=== PATIENT | male | born 1950 | race Caucasian/White ===

== ENCOUNTER 2022-06-10 18:31 | Emergency (ER) | payer OTHER, BC ==
--- OUTSIDE RECORDS SUMMARY | 2022-06-10 18:36 | XMS REPORT | Continuity of Care Document ---
:1950 Author Organization [facility] t Address [address] [place] [address] Care Team Providers Name Role Phone Nasir Bony Ramos Primary Care Physician Kwasi Valencia Attending Clinician Unavailable CALLUM ANSARI Attending Clinician Unavailable Lee Jimenez Attending Clinician Unavailable Zeke Garcia Attending Clinician Unavailable REX_[email or web address]_[email or web address]_ Attending Clinician Unavailable Wilma Armstrong Attending Clinician [phone] AMRITA RODRÍGUEZ Attending Clinician Unavailable Travon GREGG, Kori Lara Attending Clinician Unavailable Only, Ang Db Test Attending Clinician Unavailable Unknown, Attending Attending Clinician Unavailable UNKNOWN, ATTENDING Attending Clinician Unavailable Monty Neil DO Attending Clinician Callum Ansari MD Attending Clinician Only, Adc Test Attending Clinician Unavailable Bony Menendez CRNA Attending Clinician Zeke Small MD Attending Clinician Doctor Unassigned, [place] Attending Clinician Unavailable Pob, [facility] Main Attending Clinician Unavailable Hua MD, Mel L Attending Clinician MEL HUA Attending Clinician Unavailable Kwasi Valencia Admitting Clinician Unavailable CALLUM ANSARI Admitting Clinician Unavailable Physician, No Primary or Family Admitting Clinician Unavaila arminda Chen Admitting Clinician Unavailable SHEBA LEE Admitting Clinician Unavailable Zeke Garcia Admitting Clinician Unavailable Callum Ansari MD Admitting Clinician Payers Payer Name Policy Type Policy Number Effective Date Expiration Date S kandice MEDICARE PART A \T\ [id number] 2015 B 00:00:00 BCBS TRADITIONAL [id number] 2019 00:00:00 [place] [id number] 2015 [place] 00:00:00 [place] [id number] 2019 (PPO) 00:00:00 Problems Condition Condition Condition Status Onset Resolution Last Treating Co mments Source Name Details Category Date Date Treatment Clinician Date Total knee Total knee Disease Active U nivers replacemen replacemen 8-11 it y of t status t status 00:00: [place] 00 Medical Branch Primary Primary Disease Active [facility] osteoarthr osteoarthr 7-21 it y of itis of itis of 00:00: [place] right knee right knee 00 Me dical Branch Hypertensi Hypertens Problem Active 2019-06-03 Memoria ve phil 13:30:47 l disorder, disorder, Herm lamar systemic systemic arterial arterial (disorder) (disorder) Active Problem 06/03/2019 [facility] 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 Wilfredo n (disorder) (disorder) Active Problem 06/03/2019 [facility] Posttrauma Problem Active 2019-06-03 M emoria tic stress Posttrauma 13:30:47 l disorder tic stress Herm lamar (disorder) disorder (disorder) Active Problem 06/03/2019 [facility] Simple Simple Problem Active 2019-06-03 Kelvin antwan obesity obesity 13:30:47 l (disorder) (disorder) He joeyann Active Problem 06/03/2019 [facility] Depressive Depressiv Problem Active 2019-06-03 Memoria disorder e disorder 13:30:47 l (disorder) (disorder) He rmann Active Problem 06/03/2019 [facility] Hyperlipid Hyperlipi Problem Active 2019-06-03 Memoria emdrew demia 13:30:47 l (disorder) (disorder) He rmann Active Problem 06/03/2019 [facility] Allergies, Adverse Reactions, Alerts Allergy Allergy Status Severity Reaction(s) Onset Inactive Treating Comm ents Source Name Type Date Date Clinician No Known DA Active [facility] 12[facility]13 [place] [facility] No Known DA Active U 2020-10 [facility] Allergie 12-05 [place] [facility] No Known DA Active U 2020-10 [facility]ergie 11-04 [place] [facility] No Known DA Active [facility] Allergie 03-27 [place] 00:[facility] No Known DA Active U [facility] Allergie 03-27 [place] [facility] No Known DA Active U [facility] Allergie 11-13 [place] 00:[facility] No Known DA Active U 0 [facility] Allergie 11-13 [place] [facility] No Known DA Active U 2019-10 [facility] Allergie 12-17 [place] 00:[facility] No Known DA Active U 2019-10 [facility] Allergie 12-17 [place] 00:[facility] hydrocod DA Active [place] [facility] one 11-17 [place] 00:00: [facility] felisha FA Active SV [facility] 11-17 [place] 00:00: [facility] 00 [facility] hydrocod DA Active [place] SWEATING [facility] one 11-17 [place] 00:00: [facility] 00 [facility] felisha FA Active SV SWELLING, [facility] DIFFICULTY 11-17 [place] BREATHING 00:00: [facility] 00 dic [facility]osp[facility] l codeine codeine Active Memoria l [place] HYDROcod HYDROcod Active Memori a one one l [place] NO KNOWN Drug Active Univers ALLERGIE Class ity of S [facility] Social History Social Habit Start Date Stop Date Quantity Comments Source Exposure to Not sure [facility] SARS-CoV-2 [place] Medical (event) Branch Tobacco use and 2020-09-28 2020-09-28 Never used Universit y of exposure 00:00:00 00:00:00 [facility] Alcohol intake 2020-09-28 2020-09-28 Current drinker of Un iversity of 00:00:00 00:00:00 alcohol (finding) [facility] edical [place] Alcohol Comment 2015-05-29 2015-05-29 Occasional Drinker U niversity of 00:00:00 00:00:00 [facility] Sex Assigned At [birth year] Universit y of 00:00:00 00:00:00 [facility] Smoking Status Start Date Stop Date Source Never smoker [facility] Medications Ordered Filled Start Stop Current Ordering Indication Dosage Frequency Signature Comments Components Source Medication Medication Date Date Medication? Clinician (SIG) Name Name prazosin 2019-10 Yes 6mg Take 6 mg Univ ers (MINIPRES) 2-09 by mouth ity o f 2 mg 20:56: at [place] capsule 24 bedtime. Medical Branch traZODONE 2019-10 Yes 150mg Take 150 Uni vers (DESYREL) 2-09 mg by ity of 50 mg 20:56: mouth at [place] tablet 24 bedtime. Medical Branch venlafaxine 2019-10 Yes 150mg Take 150 U nivers XR (EFFEXOR 2-09 mg by ity of XR) 150 mg 20:56: mouth 2 [place] 24 [place] 24 (two) Medical capsule times [place] daily. prazosin 2019-10 Yes 6mg Take 6 mg Univ ers (MINIPRES) 2-09 by mouth ity o f 2 mg 20:56: at [place] capsule 24 bedtime. Medical Branch traZODONE 2019-10 Yes 150mg Take 150 Uni vers (DESYREL) 2-09 mg by ity of 50 mg 20:56: mouth at [place] tablet 24 bedtime. Medical Branch venlafaxine 2019-10 Yes 150mg Take 150 U nivers XR (EFFEXOR 2-09 mg by ity of XR) 150 mg 20:56: mouth 2 [place] 24 [place] 24 (two) Medical capsule times Branch daily. gabapentin 2019-10 Yes 300mg Take 300 Un [place] 300 mg 2-09 mg by ity of capsule 20:56: mouth 3 [place] 24 (three) Medical times Branch daily. gabapentin 2019- Yes 300mg Take 300 Un [place] 300 mg 2-09 mg by ity of capsule 20:56: mouth 3 [place] 24 (three) Medical times Branch daily. prazosin 2019-10 Yes 6mg Take 6 mg Univ ers (MINIPRES) 2-09 by mouth ity o f 2 mg 20:56: at [place] capsule 24 bedtime. Medical Branch traZODONE 2019-10 Yes 150mg Take 150 Uni vers (DESYREL) 2-09 mg by ity of 50 mg 20:56: mouth at [place] tablet 24 bedtime. Medical Branch venlafaxine 2019-10 Yes 150mg Take 150 U nivers XR (EFFEXOR 2-09 mg by ity of XR) 150 mg 20:56: mouth 2 [place] 24 [place] 24 (two) Medical capsule times Branch daily. gabapentin 2019-10 Yes 300mg Take 300 Un [place] 300 mg 2-09 mg by ity of capsule 20:56: mouth 3 [place] 24 (three) Medical times Branch daily. prazosin 2019-10 Yes 6mg Take 6 mg Univ ers (MINIPRES) 2-09 by mouth ity o f 2 mg 20:56: at [place] capsule 24 bedtime. Medical Branch traZODONE 2019-10 Yes 150mg Take 150 Uni vers (DESYREL) 2-09 mg by ity of 50 mg 20:56: mouth at [place] tablet 24 bedtime. Medical Branch venlafaxine 2019-10 Yes 150mg Take 150 U nivers XR (EFFEXOR 2-09 mg by ity of XR) 150 mg 20:56: mouth 2 [place] 24 hr 24 (two) Medical capsule times Branch daily. gabapentin 2019-10 Yes 300mg Take 300 [place] 300 mg 2-09 mg by ity of capsule 20:56: mouth 3 [place] 24 (three) Medical times Branch daily. prazosin 2019- Yes 6mg Take 6 mg Univ ers (MINIPRES) 2-09 by mouth ity o f 2 mg 20:56: at [place] capsule 24 bedtime. Medical Branch traZODONE 2019-10 Yes 150mg Take 150 Uni vers (DESYREL) 2-09 mg by ity of 50 mg 20:56: mouth at [place] tablet 24 bedtime. Medical Branch venlafaxine 2019-10 Yes 150mg Take 150 U nivers XR (EFFEXOR 2-09 mg by ity of XR) 150 mg 20:56: mouth 2 [place] 24 hr 24 (two) Medical capsule times [place] daily. gabapentin 2019-10 Yes 300mg Take 300 Un mil[place] 300 mg 2-09 mg by ity of capsule 20:56: mouth 3 [place] 24 (three) Medical times [place] daily. lactated 2019-10 Yes 1000mL at 42 [facility] ringers IV 2-09 mL/hr, ity of infusion 20:00: 1,000 mL, [place] 1,000 [place] 00 IV Medical Infusion, Branch CONTINUOUS , Starting Fri09/27/20 at 1400, Until Discontinu ed, Routine, PACU ondansetron 2019-10 Yes 4mg 4 mg, Slow Univers (ZOFRAN 2-09 IV Push, ity of (PF)) 19:54: PRN, 1 [place] injection 4 57 dose, Medical mg Starting Branch Fri09/27/20 at 1354, Until Discontinu ed, Routine, Nausea and Vomiting (N/V), PACU neomycin-po 2019-10 Yes PRN, [facility] lymyxin-dex 11-28 Starting ity of amethasone 19:37: Fri [place] (MAXITROL) 09/27/20 at [facility] ical 3.5 1337, [place] mg/g-10,000 Until unit/g-0.1 Discontinu % ed, ophthalmic Routine, ointment Intra-op gentamicin 2019-10 Yes PRN, Univers injection 11-28 Starting ity of 19:37: Fri [place] 09/27/20 at [facility] 1337, Branch Until Discontinu ed, WAN, Intra-op dexamethaso 2019-10 Yes PRN, [facility] ne 2-09 Starting ity of (DECADRON 19:37: Wed [place] PHOSPHATE) 00 09/27/20 at Med ical injection 1337, Branch Until Discontinu ed, Routine, Intra-op ceFAZolin 2019-10 Yes PRN, Univers (ANCEF) 2- Starting ity of injection 19:37: Fri [place] 09/27/20 at [facility] 1337, Branch Until Discontinu ed, WAN, Intra-op carbachoL 2019-10 Yes PRN, Univers (MIOSTAT) 2 Starting ity of 0.01 % 19:35: Wed [place] intraocular 09/27/20 at [place] d[place] injection 1335, Branch Until Discontinu ed, Routine, Intra-op sodium 2019-10 Yes PRN, Univers chloride 2-09 Starting ity of (NS) 19:34: Fri [place] injection 09/27/20 at [facility] 1334, Branch Until Discontinu ed, Routine, Intra-op EPINEPHrine 2019-10 Yes PRN, Univer s 1:1,000 (1 2- Starting ity o f mg/mL) 19:32: Fri [place] (ADRENALIN) 00 09/27/20 at [place] dical injection 1332, Branch Until Discontinu ed, Routine, Intra-op DUOVISC 2019-10 Yes PRN, Univers (DUOVISC 2 Starting ity of VISCO 19:32: Fri [place] ELASTIC) 3 00 09/27/20 at [facility] ical %-4 %(0.5 1332, Branch mL) 1 % Until (0.55 mL) Discontinu intraocular ed, injection Routine, Intra-op balanced 2019-10 Yes PRN, Univers salt irrig 2- Starting ity o f soln comb1 19:30: Fri [place] (BSS PLUS) 09/27/20 at [facility] ical ophthalmic 1330, Branch solution Until 500 mL bag Discontinu ed, Routine, Intra-op water for 2019-10 Yes PRN, Univers irrigation 2- Starting ity o f irrigation 19:21: Fri [place] solution 00 09/27/20 at Medic al 1321, Branch Until Discontinu ed, Routine, Intra-op Hyaluronida 2019-10 Yes PRN, Univer s se, Human 2- Starting ity of Recomb. 19:20: Fri [place] (HYLENEX) 09/27/20 at [facility] injection 1320, Branch Until Discontinu ed, Routine, Intra-op eye block 2019-10 Yes PRN, Univers syringe 11 2- Starting ity o f mL 19:20: [facility] [place] 09/27/20 at [facility] 1320, Branch Until Discontinu ed, Intra-op mydriatic 2019-10 2020- No .5mL 0.5 mL, Univ ers #5 11-28 Right Eye, ity of ophthalmic 16:15: 16:08 ONCE, 1 [place] as solution 00 :00 dose, [facility] Medica l 0.5 mL 09/27/20 at Branch syringe 1015, Routine, DSU Pre-op lactated 2019-10 2020- No 1000mL at 42 Unive rs ringers IV 2-09 12-09 mL/hr, ity of infusion 16:15: 16:11 1,000 mL, [place] as 1,000 mL 00 :00 IV Medical Infusion, [place] ONCE, 1 dose, 09/27/20 at 1015, Routine, DSU Pre-op prazosin 2019-10 Yes 6mg Take 6 mg Univ ers (MINIPRES) 1-19 by mouth ity o f 2 mg 17:56: at [place] capsule 10 bedtime. Medical Branch traZODONE 2019-10 Yes 150mg Take 150 Uni vers (DESYREL) 1-19 mg by ity of 50 mg 17:56: mouth at [place] tablet 10 bedtime. Medical Branch venlafaxine 2019-10 Yes 150mg Take 150 U nivers XR (EFFEXOR 1-19 mg by ity of XR) 150 mg 17:56: mouth 2 [place] 24 hr 10 (two) Medical capsule times [place] daily. prazosin 2019-10 Yes 6mg Take 6 mg Univ ers (MINIPRES) 1-19 by mouth ity o f 2 mg 17:56: at [place] capsule 10 bedtime. Medical Branch traZODONE 2019-10 Yes 150mg Take 150 Uni vers (DESYREL) 1-19 mg by ity of 50 mg 17:56: mouth at [place] tablet 10 bedtime. Medical Branch venlafaxine 2019-10 Yes 150mg Take 150 U nivers XR (EFFEXOR 1-19 mg by ity of XR) 150 mg 17:56: mouth 2 [place] 24 hr 10 (two) Medical capsule times Branch daily. prazosin 2019-10 Yes 6mg Take 6 mg Univ ers (MINIPRES) 1-18 by mouth ity o f 2 mg 18:22: at [place] capsule 10 bedtime. Medical Branch traZODONE 2019-10 Yes 150mg Take 150 Uni vers (DESYREL) 1-18 mg by ity of 50 mg 18:22: mouth at [place] tablet 10 bedtime. Medical Branch venlafaxine 2019-10 Yes 150mg Take 150 U nivers XR (EFFEXOR 1-18 mg by ity of XR) 150 mg 18:22: mouth 2 [place] 24 hr 10 (two) Medical capsule times Branch daily. propofoL IV 2019-10- No Intravenou Univers infusion 11-0618 s, ONCE ity of 17:57: 18:19 INTRA [place] 00 :25 PROCEDURE, Medical Starting Branch Fri09/06/20 at 1157, Until Fri09/06/20 at 1219, Routine, Intra-op remifentani 2019-10 2020- No Intravenou Univers L (ULTIVA) 11-06 s, ONCE ity o f injection 17:47: 18:19 INTRA [place] 00 :25 PROCEDURE, Medical Starting Branch Fri09/06/20 at 1147, Until Fri09/06/20 at 1219, Routine, Intra-op lidocaine 2019-10- No ONCE INTRA U nivers 2% 11-06 PROCEDURE, ity of (XYLOCAINE) 17:47: 18:19 Starting [place] 20 mg/mL (2 00 :25 [facility] Medical %) 09/06/20 Branch injection at 1147, Until Fri09/06/20 at 1219, Routine, Intra-op lactated 2019-10 2020- No IV Univers ringers IV 11-06 Infusion, ity of infusion 17:47: 18:19 CONTINUOUS [place] 00 :25 PRN, Medical Starting Branch Fri09/06/20 at 1147, Until Fri09/06/20 at 1219, Routine, Intra-op water for 2019-10 Yes PRN, Univers irrigation 11-06 Starting ity o f irrigation 17:42: Wed [place] solution 09/06/20 Medical at 1142, Branch Until Discontinu ed, Routine, Intra-op sodium 2019-10 Yes PRN, Univers chloride 11-06 Starting ity of (NS) 17:42: Wed [place] injection 09/06/20 Medica l at 1142, Branch Until Discontinu ed, Routine, Intra-op neomycin-po 2019-10 Yes PRN, Univberta s lymyxin-dex 18 Starting ity of amethasone 17:42: Wed [place] (MAXITROL) 09/06/20 Medic al 3.5 at 1142, Branch mg/g-10,000 Until unit/g-0.1 Discontinu % ed, ophthalmic Routine, ointment Intra-op Hyaluronida 2019-10 Yes PRN, Univberta s se, Human 1-18 Starting ity of Recomb. 17:41: Fri [place] (HYLENEX) 09/06/20 Medica l injection at 1141, Branch Until Discontinu ed, Routine, Intra-op eye block 2019-10 Yes PRN, Univers syringe 11 11-06 Starting ity o f mL 17:41: Fri [place] 09/06/20 Medical at 1141, Branch Until Discontinu ed, Intra-op EPINEPHrine 2019-10 Yes PRN, Univer s 1:1,000 (1 11-06 Starting ity o f mg/mL) 17:41: Fri [place] (ADRENALIN) 09/06/20 Medi miryam injection at 1141, Branch Until Discontinu ed, Routine, Intra-op DUOVISC 2019-10 Yes PRN, Univers (DUOVISC 11-06 Starting ity of VISCO 17:41: Fri [place] ELASTIC) 3 09/06/20 Medic al %-4 %(0.5 at 1141, Branch mL) 1 % Until (0.55 mL) Discontinu intraocular ed, injection Routine, Intra-op dexamethaso 2019-10 Yes PRN, Univer s ne 11-06 Starting ity of (DECADRON 17:41: Fri [place] PHOSPHATE) 09/06/20 Medic al injection at 1141, Branch Until Discontinu ed, Routine, Intra-op ceFAZolin 2019-10 Yes PRN, Univers (ANCEF) 11-06 Starting ity of injection 17:41: Fri [place] 09/06/20 Medical at 1141, Branch Until Discontinu ed, WAN, Intra-op carbachoL 2019-10 Yes PRN, Univers (MIOSTAT) 11-06 Starting ity of 0.01 % 17:41: Fri [place] intraocular 00 09/06/20 Medi miryam injection at 1141, Branch Until Discontinu ed, Routine, Intra-op balanced 2019-10 Yes PRN, Univers salt irrig 11-06 Starting ity o f soln comb1 17:40: Fri [place] (BSS PLUS) 09/06/20 Medic al ophthalmic at 1140, Bran h solution Until 500 mL bag Discontinu ed, Routine, Intra-op mydriatic 2019-10 2020- No .5mL 0.5 mL, Univ ers #5 11-06 Left Eye, ity of ophthalmic 16:30: 16:31 ONCE, 1 [place] solution 00 :00 dose, Fri Medica l 0.5 mL 09/06/20 Branch syringe at 1030, Routine lactated 2020-1 2020- No 1000mL at 42 Unive rs ringers IV 1-18 11-18 mL/hr, ity of infusion 16:30: 16:38 1,000 mL, [place] as 1,000 mL 00 :00 IV Medical Infusion, Branch ONCE, 1 dose, 09/06/20 at 1030, Routine, DSU Pre-op venlafaxine 2014-0 Yes 150mg Take 150 U nivers XR (EFFEXOR 8-14 mg by ity of XR) 150 mg 01:50: mouth 2 [place] 24 hr 54 (two) Medical capsule times Branch daily. prazosin 2014-0 Yes 6mg Take 6 mg Univ ers (MINIPRES) 8-14 by mouth ity o f 2 mg 01:50: at [place] capsule 54 bedtime. Medical Branch traZODONE 0 Yes 150mg Take 150 Uni vers (DESYREL) 8-14 mg by ity of 50 mg 01:50: mouth at [place] tablet 54 bedtime. Medical Branch venlafaxine 0 Yes 150mg Take 150 U nivers XR (EFFEXOR 8-14 mg by ity of XR) 150 mg 01:50: mouth 2 [place] 24 hr 54 (two) Medical capsule times Branch daily. prazosin 0 Yes 6mg Take 6 mg Univ ers (MINIPRES) 8-14 by mouth ity o f 2 mg 01:50: at [place] capsule 54 bedtime. Medical Branch traZODONE 0 Yes 150mg Take 150 Uni vers (DESYREL) 8-14 mg by ity of 50 mg 01:50: mouth at [place] tablet 54 bedtime. Medical Branch venlafaxine 0 Yes 150mg Take 150 U nivers XR (EFFEXOR 8-14 mg by ity of XR) 150 mg 01:50: mouth 2 [place] 24 hr 54 (two) Medical capsule times Branch daily. prazosin 2014-0 Yes 6mg Take 6 mg Univ ers (MINIPRES) 8-14 by mouth ity o f 2 mg 01:50: at [place] capsule 54 bedtime. Medical Branch traZODONE 2014-0 Yes 150mg Take 150 Uni vers (DESYREL) 8-14 mg by ity of 50 mg 01:50: mouth at [place] tablet 54 bedtime. Medical Branch venlafaxine Yes 150mg Take 150 U nivers XR (EFFEXOR 8-14 mg by ity of XR) 150 mg 01:50: mouth 2 [place] 24 hr 54 (two) Medical capsule times Branch daily. prazosin 0 Yes 6mg Take 6 mg Univ ers (MINIPRES) 8-14 by mouth ity o f 2 mg 01:50: at [place] capsule 54 bedtime. Medical Branch traZODONE Yes 150mg Take 150 Uni vers (DESYREL) 8-14 mg by ity of 50 mg 01:50: mouth at [place] tablet 54 bedtime. Medical Branch venlafaxine Yes 150mg Take 150 U nivers XR (EFFEXOR 8-14 mg by ity of XR) 150 mg 01:50: mouth 2 [place] 24 hr 54 (two) Medical capsule times Branch daily. prazosin Yes 6mg Take 6 mg Univ ers (MINIPRES) 8-14 by mouth ity o f 2 mg 01:50: at [place] capsule 54 bedtime. Medical Branch traZODONE Yes 150mg Take 150 Uni vers (DESYREL) 8-14 mg by ity of 50 mg 01:50: mouth at [place] tablet 54 bedtime. Medical Branch venlafaxine Yes 150mg Take 150 U nivers XR (EFFEXOR 8-14 mg by ity of XR) 150 mg 01:50: mouth 2 [place] 24 hr 54 (two) Medical capsule times Branch daily. prazosin 0 Yes 6mg Take 6 mg Univ ers (MINIPRES) 8-14 by mouth ity o f 2 mg 01:50: at [place] capsule 54 bedtime. Medical Branch traZODONE Yes 150mg Take 150 Uni vers (DESYREL) 8-14 mg by ity of 50 mg 01:50: mouth at [place] tablet 54 bedtime. Medical Branch venlafaxine 0 Yes 150mg Take 150 U nivers XR (EFFEXOR 8-14 mg by ity of XR) 150 mg 01:50: mouth 2 [place] 24 hr 54 (two) Medical capsule times Branch daily. prazosin 0 Yes 6mg Take 6 mg Univ ers (MINIPRES) 8-14 by mouth ity o f 2 mg 01:50: at [place] capsule 54 bedtime. Medical Branch traZODONE Yes 150mg Take 150 Uni vers (DESYREL) 8-14 mg by ity of 50 mg 01:50: mouth at [place] tablet 54 bedtime. Medical Branch venlafaxine Yes 150mg Take 150 U nivers XR (EFFEXOR 8-14 mg by ity of XR) 150 mg 01:50: mouth 2 [place] 24 hr 54 (two) Medical capsule times Branch daily. prazosin Yes 6mg Take 6 mg Univ ers (MINIPRES) 8-14 by mouth ity o f 2 mg 01:50: at [place] capsule 54 bedtime. Medical Branch traZODONE Yes 150mg Take 150 Uni vers (DESYREL) 8-14 mg by ity of 50 mg 01:50: mouth at [place] tablet 54 bedtime. Medical Branch venlafaxine Yes 150mg Take 150 U nivers XR (EFFEXOR 8-14 mg by ity of XR) 150 mg 01:50: mouth 2 [place] 24 hr 54 (two) Medical capsule times Branch daily. prazosin Yes 6mg Take 6 mg Univ ers (MINIPRES) 8-14 by mouth ity o f 2 mg 01:50: at [place] capsule 54 bedtime. Medical Branch traZODONE Yes 150mg Take 150 Uni vers (DESYREL) 8-14 mg by ity of 50 mg 01:50: mouth at [place] tablet 54 bedtime. Medical Branch venlafaxine Yes 150mg Take 150 U nivers XR (EFFEXOR 8-14 mg by ity of XR) 150 mg 01:50: mouth 2 [place] 24 hr 54 (two) Medical capsule times Branch daily. prazosin Yes 6mg Take 6 mg Univ ers (MINIPRES) 8-14 by mouth ity o f 2 mg 01:50: at [place] capsule 54 bedtime. Medical Branch traZODONE Yes 150mg Take 150 Uni vers (DESYREL) 8-14 mg by ity of 50 mg 01:50: mouth at [place] tablet 54 bedtime. Medical Branch venlafaxine Yes 150mg Take 150 U nivers XR (EFFEXOR 8-14 mg by ity of XR) 150 mg 01:50: mouth 2 [place] 24 hr 54 (two) Medical capsule times Branch daily. prazosin 2014-0 Yes 6mg Take 6 mg Univ ers (MINIPRES) 8-14 by mouth ity o f 2 mg 01:50: at [place] capsule 54 bedtime. Medical Branch traZODONE 2014-0 Yes 150mg Take 150 Uni vers (DESYREL) 8-14 mg by ity of 50 mg 01:50: mouth at [place] tablet 54 bedtime. Medical Branch celecoxib 2014-0 Yes 200mg Take 1 Cap U nivers (CELEBREX) 8-13 by mouth 2 ity of 200 mg 00:00: (two) [place] capsule 00 times Medical daily with Branch meals. HYDROmorphO 2015-0 Yes 2mg Take 1 Tab Univers ne 8-13 by mouth ity of (DILAUDID) 00:00: every 4 [place] 2 mg tablet 00 (four) Medica l hours as Branch needed for Pain (scale 4-6). busPIRone 2015-0 Yes 5mg Take 1 Tab Un mil[place] (BUSPAR) 5 8-13 by mouth ity o f mg tablet 00:00: at bedtime [place] 00 as needed Medical (anxiety). Branch celecoxib 2014-0 Yes 200mg Take 1 Cap U nivers (CELEBREX) 8-13 by mouth 2 ity of 200 mg 00:00: (two) [place] capsule 00 times Medical daily with Branch meals. HYDROmorphO 2015-0 Yes 2mg Take 1 Tab Univers ne 8-13 by mouth ity of (DILAUDID) 00:00: every 4 [place] 2 mg tablet 00 (four) Medica l hours as Branch needed for Pain (scale 4-6). busPIRone 2015-0 Yes 5mg Take 1 Tab Un mil[place] (BUSPAR) 5 8-13 by mouth ity o f mg tablet 00:00: at bedtime [place] 00 as needed Medical (anxiety). Branch celecoxib 2015-0 Yes 200mg Take 1 Cap U nivers (CELEBREX) 8-13 by mouth 2 ity of 200 mg 00:00: (two) [place] capsule 00 times Medical daily with Branch meals. HYDROmorphO 2015-0 Yes 2mg Take 1 Tab Univers ne 8-13 by mouth ity of (DILAUDID) 00:00: every 4 [place] 2 mg tablet 00 (four) Medica l hours as Branch needed for Pain (scale 4-6). busPIRone 2015-0 Yes 5mg Take 1 Tab Un [place] (BUSPAR) 5 8-13 by mouth ity o f mg tablet 00:00: at bedtime [place] 00 as needed Medical (anxiety). Branch celecoxib 2015-0 Yes 200mg Take 1 Cap U nivers (CELEBREX) 8-13 by mouth 2 ity of 200 mg 00:00: (two) [place] capsule 00 times Medical daily with Branch meals. HYDROmorphO 2015-0 Yes 2mg Take 1 Tab Univers ne 8-13 by mouth ity of (DILAUDID) 00:00: every 4 [place] 2 mg tablet 00 (four) Medica l hours as Branch needed for Pain (scale 4-6). busPIRone 2015-0 Yes 5mg Take 1 Tab Un milind (BUSPAR) 5 8-13 by mouth ity o f mg tablet 00:00: at bedtime [place] 00 as needed Medical (anxiety). Branch celecoxib 2015-0 Yes 200mg Take 1 Cap U nivers (CELEBREX) 8-13 by mouth 2 ity of 200 mg 00:00: (two) [place] capsule 00 times Medical daily with Branch meals. HYDROmorphO 2015-0 Yes 2mg Take 1 Tab Univers ne 8-13 by mouth ity of (DILAUDID) 00:00: every 4 [place] 2 mg tablet 00 (four) Medica l hours as Branch needed for Pain (scale 4-6). busPIRone 2015-0 Yes 5mg Take 1 Tab Un mil[place] (BUSPAR) 5 8-13 by mouth ity o f mg tablet 00:00: at bedtime [place] 00 as needed Medical (anxiety). Branch celecoxib 2015-0 Yes 200mg Take 1 Cap U nivers (CELEBREX) 8-13 by mouth 2 ity of 200 mg 00:00: (two) [place] capsule 00 times Medical daily with Branch meals. HYDROmorphO 2015-0 Yes 2mg Take 1 Tab Univers ne 8-13 by mouth ity of (DILAUDID) 00:00: every 4 [place] 2 mg tablet 00 (four) Medica l hours as Branch needed for Pain (scale 4-6). busPIRone 2015-0 Yes 5mg Take 1 Tab Un milind (BUSPAR) 5 8-13 by mouth ity o f mg tablet 00:00: at bedtime [place] 00 as needed Medical (anxiety). Branch celecoxib 2015-0 Yes 200mg Take 1 Cap U nivers (CELEBREX) 8-13 by mouth 2 ity of 200 mg 00:00: (two) [place] capsule 00 times Medical daily with Branch meals. HYDROmorphO 2015-0 Yes 2mg Take 1 Tab Univers ne 8-13 by mouth ity of (DILAUDID) 00:00: [place] 4 [place] 2 mg tablet 00 (four) Medica l hours as Branch needed for Pain (scale 4-6). celecoxib 2015-0 Yes 200mg Take 1 Cap U nivers (CELEBREX) 8-13 by mouth 2 ity of 200 mg 00:00: (two) [place] capsule 00 times Medical daily with Branch meals. busPIRone 2015-0 Yes 5mg Take 1 Tab Un milind (BUSPAR) 5 8-13 by mouth ity o f mg tablet 00:00: [place]time [place] 00 as needed Medical (anxiety). Branch HYDROmorphO 2015-0 Yes 2mg Take 1 Tab Univers ne 8-13 by mouth ity of (DILAUDID) 00:00: [place] 4 [place] 2 mg tablet 00 (four) Medica l hours as Branch needed for Pain (scale 4-6). busPIRone 2015-0 Yes 5mg Take 1 Tab Un milind (BUSPAR) 5 8-13 by mouth ity o f mg tablet 00:00: [place]time [place] 00 as needed Medical (anxiety). Branch celecoxib 2015-0 Yes 200mg Take 1 Cap U nivers (CELEBREX) 8-13 by mouth 2 ity of 200 mg 00:00: (two) [place] capsule 00 times Medical daily with Branch meals. HYDROmorphO 2015-0 Yes 2mg Take 1 Tab Univers ne 8-13 by mouth ity of (DILAUDID) 00:00: every 4 [place] 2 mg tablet 00 (four) Medica l hours as Branch needed for Pain (scale 4-6). busPIRone 2015-0 Yes 5mg Take 1 Tab Un milind (BUSPAR) 5 8-13 by mouth ity o f mg tablet 00:00: [place]time [place] 00 as needed Medical (anxiety). Branch celecoxib 2015-0 Yes 200mg Take 1 Cap U nivers (CELEBREX) 8-13 by mouth 2 ity of 200 mg 00:00: (two) [place] capsule 00 times Medical daily with Branch meals. HYDROmorphO 2015-0 Yes 2mg Take 1 Tab Univers ne 8-13 by mouth ity of (DILAUDID) 00:00: every 4 [place] 2 mg tablet 00 (four) Medica l hours as Branch needed for Pain (scale 4-6). busPIRone 2015-0 Yes 5mg Take 1 Tab Un milind (BUSPAR) 5 8-13 by mouth ity o f mg tablet 00:00: [place]time [place] 00 [place] needed Medical (anxiety). Branch celecoxib 2015-0 Yes 200mg Take 1 Cap U nivers (CELEBREX) 8-13 by mouth 2 ity of 200 mg 00:00: (two) [place] capsule 00 times Medical daily with Branch meals. HYDROmorphO 2015-0 Yes 2mg Take 1 Tab Univers ne 8-13 by mouth ity of (DILAUDID) 00:00: every 4 [place] 2 mg tablet 00 (four) Medica l hours as Branch needed for Pain (scale 4-6). busPIRone 2015-0 Yes 5mg Take 1 Tab Un milind (BUSPAR) 5 8-13 by mouth ity o f mg tablet 00:00: [place]time [place] 00 as needed Medical (anxiety). Branch celecoxib 2015-0 Yes 200mg Take 1 Cap U nivers (CELEBREX) 8-13 by mouth 2 ity of 200 mg 00:00: (two) [place] capsule 00 times Medical daily with Branch meals. HYDROmorphO 2015-0 Yes 2mg Take 1 Tab Univers ne 8-13 by mouth ity of (DILAUDID) 00:00: every 4 [place] 2 mg tablet 00 (four) Medica l hours as Branch needed for Pain (scale 4-6). busPIRone 2015-0 Yes 5mg Take 1 Tab Un milind (BUSPAR) 5 8-13 by mouth ity o f mg tablet 00:00: [place]time [place] 00 as needed Medical (anxiety). Branch celecoxib 2015-0 Yes 200mg Take 1 Cap U nivers (CELEBREX) 8-13 by mouth 2 ity of 200 mg 00:00: (two) [place] capsule 00 times Medical daily with Branch meals. HYDROmorphO 2015-0 Yes 2mg Take 1 Tab Univers ne 8-13 by mouth ity of (DILAUDID) 00:00: every 4 [place] 2 mg tablet 00 (four) Medica l hours as Branch needed for Pain (scale 4-6). busPIRone 2015-0 Yes 5mg Take 1 Tab Un milind (BUSPAR) 5 8-13 by mouth ity o f mg tablet 00:00: [place]time [place] 00 [place] needed Medical (anxiety). Branch celecoxib 2015-0 Yes 200mg Take 1 Cap U nivers (CELEBREX) 8-13 by mouth 2 ity of 200 mg 00:00: (two) [place] capsule 00 times Medical daily with Branch meals. HYDROmorphO 2015-0 Yes 2mg Take 1 Tab Univers ne 8-13 by mouth ity of (DILAUDID) 00:00: every 4 [place] 2 mg tablet 00 (four) Medica l hours as Branch needed for Pain (scale 4-6). busPIRone 2015-0 Yes 5mg Take 1 Tab Un milind (BUSPAR) 5 8-13 by mouth ity o f mg tablet 00:00: [place]time [place] 00 as needed Medical (anxiety). Branch celecoxib 2015-0 Yes 200mg Take 1 Cap U nivers (CELEBREX) 8-13 by mouth 2 ity of 200 mg 00:00: (two) [place] capsule 00 times Medical daily with Branch meals. HYDROmorphO 2015-0 Yes 2mg Take 1 Tab Univers ne 8-13 by mouth ity of (DILAUDID) 00:00: every 4 [place] 2 mg tablet 00 (four) Medica l hours as Branch needed for Pain (scale 4-6). busPIRone 2015-0 Yes 5mg Take 1 Tab Un milind (BUSPAR) 5 8-13 by mouth ity o f mg tablet 00:00: [place]time [place] 00 as needed Medical (anxiety). Branch celecoxib 2015-0 Yes 200mg Take 1 Cap U nivers (CELEBREX) 8-13 by mouth 2 ity of 200 mg 00:00: (two) [place] capsule 00 times Medical daily with Branch meals. HYDROmorphO 2015-0 Yes 2mg Take 1 Tab Univers ne 8-13 by mouth ity of (DILAUDID) 00:00: every 4 [place] 2 mg tablet 00 (four) Medica l hours as Branch needed for Pain (scale 4-6). busPIRone 2015-0 Yes 5mg Take 1 Tab Un milind (BUSPAR) 5 8-13 by mouth ity o f mg tablet 00:00: [place]time [place] 00 as needed Medical (anxiety). Branch celecoxib 2015-0 Yes 200mg Take 1 Cap U nivers (CELEBREX) 8-13 by mouth 2 ity of 200 mg 00:00: (two) [place] capsule 00 times Medical daily with Branch meals. HYDROmorphO 2015-0 Yes 2mg Take 1 Tab Univers ne 8-13 by mouth ity of (DILAUDID) 00:00: every 4 [place] 2 mg tablet 00 (four) Medica l hours as Branch needed for Pain (scale 4-6). busPIRone 2015-0 Yes 5mg Take 1 Tab Un milind (BUSPAR) 5 8-13 by mouth ity o f mg tablet 00:00: [place]time [place] 00 as needed Medical (anxiety). Branch celecoxib 2015-0 Yes 200mg Take 1 Cap U nivers (CELEBREX) 8-13 by mouth 2 ity of 200 mg 00:00: (two) [place] capsule 00 times Medical daily with Branch meals. HYDROmorphO 2015-0 Yes 2mg Take 1 Tab Univers ne 8-13 by mouth ity of (DILAUDID) 00:00: every 4 [place] 2 mg tablet 00 (four) Medica l hours as Branch needed for Pain (scale 4-6). busPIRone 2015-0 Yes 5mg Take 1 Tab Un milind (BUSPAR) 5 8-13 by mouth ity o f mg tablet 00:00: at [place]time [place] 00 as needed Medical (anxiety). Branch celecoxib 2015-0 Yes 200mg Take 1 Cap U nivers (CELEBREX) 8-13 by mouth 2 ity of 200 mg 00:00: (two) [place] capsule 00 times Medical daily with Branch meals. HYDROmorphO 2015-0 Yes 2mg Take 1 Tab Univers ne 8-13 by mouth ity of (DILAUDID) 00:00: every 4 [place] 2 mg tablet 00 (four) Medica l hours as Branch needed for Pain (scale 4-6). busPIRone 2015-0 Yes 5mg Take 1 Tab Un milind (BUSPAR) 5 8-13 by mouth ity o f mg tablet 00:00: [place]time [place] 00 as needed Medical (anxiety). Branch Vital Signs Vital Name Observation Time Observation Value Comments Source Systolic blood 2020-09-27 19:58:00 140 mm[Hg] Univer sity of [facility] Diastolic blood 2020-09-27 19:58:00 76 mm[Hg] Unive rsity of [facility] Heart rate 2020-09-27 19:58:00 61 /min Universi ty [facility] Respiratory rate 2020-09-27 19:58:00 18 /min [facility] in 2020-09-27 19:58:00 94 /min University of Arterial blood by [facility] Pulse oximetry Branch Body temperature 2020-09-27 19:43:00 36.56 [facility] Body height 2020-09-25 20:00:00 177.8 cm Universi ty [facility] Body weight 2020-09-25 20:00:00 88.451 kg [facility] ty [facility] BMI 2020-09-25 20:00:00 27.98 kg/m2 [facility] Systolic blood 2020-09-27 19:58:00 140 mm[Hg] Univer sity of [facility] Diastolic blood 2020-09-27 19:58:00 76 mm[Hg] Unive rsity of [facility] Heart rate 2020-09-27 19:58:00 61 /min Universi ty [facility] Respiratory rate 2020-09-27 19:58:00 18 /min Univ ersity [facility] Oxygen saturation in 2020-09-27 19:58:00 94 /min University of Arterial blood by [facility] Pulse oximetry Branch Body temperature 2020-09-27 19:43:00 36.56 Roxana [facility] height 2020-09-25 20:00:00 177.8 cm Universi ty [facility] Body weight 2020-09-25 20:00:00 88.451 kg [facility]i ty [facility] [place] [facility] BMI 2020-09-25 20:00:00 27.98 kg/m2 [facility] [place] [facility] Systolic blood 2020-09-06 18:32:00 138 mm[Hg] Univer sity of [facility] [place] [facility] Diastolic blood 2020-09-06 18:32:00 77 mm[Hg] Unive rsity of [facility] [place] [facility] Heart rate 2020-09-06 18:32:00 71 /min Universi ty [facility] [place] [facility] Respiratory rate 2020-09-06 18:32:00 18 /min Univ ersity [facility] [place] [facility] Oxygen saturation in 2020-09-06 18:32:00 98 /min University of Arterial blood by [place] [employer] miryam Pulse oximetry Branch Body temperature 2020-09-06 18:22:00 36.89 Roxana Univ ersity [facility] [place] [facility] Body height 2020-09-04 15:30:00 177.8 cm [facility]i ty [facility] [place] [facility] Body weight 2020-09-04 15:30:00 88.451 kg [facility] [place] [facility] BMI 2020-09-04 15:30:00 27.98 kg/m2 [facility] [place] [facility] Systolic blood 2020-09-06 18:32:00 138 mm[Hg] Univer sity of [facility] [place] [facility] Diastolic blood 2020-09-06 18:32:00 77 mm[Hg] Unive rsity of [facility] [place] [facility] Heart rate 2020-09-06 18:32:00 71 /min Universi ty [facility] [place] [facility] Respiratory rate 2020-09-06 18:32:00 18 /min Univ ersity [facility] [place] [facility] Oxygen saturation in 2020-09-06 18:32:00 98 /min University of Arterial blood by [facility] miryam Pulse oximetry Branch Body temperature 2020-09-06 18:22:00 36.89 Roxana Univ ersity [facility] [place] [facility] Body height 2020-09-04 15:30:00 177.8 cm [facility]i ty [facility] [place] [facility] Body weight 2020-09-04 15:30:00 88.451 kg [facility] [place] [facility] BMI 2020-09-04 15:30:00 27.98 kg/m2 [facility] [place] [facility] Respiratory rate 2020-09-06 18:16:00 17 /min Univ ersity [facility] [place] [facility] Respiratory rate 2020-09-06 18:16:00 17 /min Univ ersity of [facility] Branch Systolic blood 2020-07-20 18:35:00 127 mm[Hg] Univer sity of [facility] [place] [facility] Diastolic blood 2020-07-20 18:35:00 75 mm[Hg] Unive rsity of [facility] [place] [facility] Heart rate 2020-07-20 18:32:00 79 /min Universi ty [facility] [place] [facility] Systolic blood 2020-07-20 18:35:00 127 mm[Hg] Univer sity of [facility] [place] [facility] Diastolic blood 2020-07-20 18:35:00 75 mm[Hg] Unive rsity of pressure [facility] Branch Heart rate 2020-07-20 18:32:00 79 /min [facility] Branch BMI Calculated 2019-04-09 21:07:00 Jackie Vasques Weight 2019-04-09 [facility]:07[facility]00 [facility] Height 2019-04-09 21:07:00 175.26 cm [facility] [place] Respitory Rate 2019-04-09 21:07:00 Jackie Vasques Heart Rate 2019-04-09 21:07:00 [facility] Systolic (mm Hg) 2019-04-09 21:07:00 Kelvin Taylor Diastolic (mm Hg) 2019-04-09 21:07:00 [facility] mike Taylor Procedures Procedure Date / Time Performing Source Performed Clinician CONSENT/REFUSAL FOR DIAGNOSIS 2020-09-25 Doctor Unassigned, [facility] 17:48:31 [facility] ASSIGNMENT OF BENEFITS 2020-09-25 Doctor Unassigned, [facility] 17:48:13 [facility] PHACOEMULSIFICATION OF 2020-09-06 Callum Ansari [facility] CATARACT WITH INTRAOCULAR 17:43:00 Medica l Branch LENS IMPLANT ASSIGNMENT OF BENEFITS 2020-09-05 Doctor Unassigned, [facility] 17:09:22 [facility] CONSENT/REFUSAL FOR DIAGNOSIS 2020-08-28 Doctor Unassigned, [facility] 22:16:21 [facility] ASSIGNMENT OF BENEFITS 2020-08-28 Doctor Unassigned, [facility] 22:16:06 [facility] NOTICE OF PRIVACY PRACTICES 2020-08-28 Doctor Unassigned, [facility] 22:15:53 [facility] CONSENT/REFUSAL FOR DIAGNOSIS 2020-08-28 Doctor Unassigned, [facility] 22:15:40 [facility] ASSIGNMENT OF BENEFITS 2020-08-28 Doctor Unassigned, [facility] 22:15:23 [facility] PHYSICIAN ORDERS 2020-08-28 Doctor Unassigned, [facility] 06:01:00 [facility] EXTERNAL PROVIDER RECORDS 2020-07-24 Doctor Unassigned, [facility] 05:01:00 [facility] ASSIGNMENT OF BENEFITS 2020-07-20 Doctor Unassigned, [facility] 18:24:15 [facility] REFERRAL- REQUEST/RESPONSE 2020-07-17 Doctor Unassigned, [facility] 05:01:00 [facility] Encounters Start End Encounter Admission Attending Care Care Encounter Source Date/Time Date/Time Type Type Clinicians Facility Department ID 2021-12-13 Outpatient Erik, MANUELTO MANUELTO [id number] [facility] 10:06:02 Kwasi 05 [facility] 2021-10-04 Outpatient Erik, MANUELTO MANUELTO [id number] [facility] 14:48:20 Kwasi 11 [facility] 2021-08-18 Outpatient Elder ANSARI DCJANNA JAMILA [id number] Univers 09:02:11 [facility] 2021-08-18 Outpatient Elder ANSARI [facility] OPU [id number] Univers 06:19:26 CALLUM [facility] 2020-11-13 Inpatient JUAN LUIS Gonzales PAIN [id number] [facility] 10:30:00 Lee [id number] [facility] 2020-10-16 Inpatient JUAN LUIS Dennison RADI [id number] [facility] 14:30:00 Zeke [id number] [facility] 2022-06-04 2022-06-04 Outpatient REX_Yohana AOSM AOSM [id number] [place] 00:00:00 00:00:00 Lashaun [id number] [facility] 2022-06-04 2022-06-04 Outpatient Wilma Armstrong AOLUIS AOSM [id number] 00:00:00 00:00:00 Elder [id number] 2022-06-03 2022-06-03 Outpatient FOG_Wimberl AOSM AOSM [id number] [place] 00:00:00 00:00:00 holland_Da_ [id number] [facility] 2022-05-31 2022-05-31 Outpatient FOG_Wimberl AOSM AOSM [id number] [place] 00:00:00 00:00:00 ey_Da_ [id number] [facility] 2022-03-29 2022-03-29 Outpatient [facility] [id number] [place] 00:00:00 00:00:00 AMRITA 976 Method i 2022-03-26 2022-03-26 Outpatient FOG_Wimberl AOSM AOSM [id number] [place] 00:00:00 00:00:00 holland_Shilpa [id number] [facility] 2022-03-15 2022-03-15 Outpatient [facility] [id number] [place] 00:00:00 00:00:00 AMRITA 669 Method i 2021-12-13 2021-12-13 Outpatient FLORENCIA Erik, HCATO PAIN [id number] [facility] 07:09:00 07:09:00 Kwasi [id number] [facility] 2021-11-23 2021-11-23 Outpatient [facility] [id number] [place] 00:00:00 00:00:00 AMRITA 653 Method i 2021-11-08 2021-11-08 Outpatient [facility] [id number] [place] 00:00:00 00:00:00 AMRITA [address] 2021-10-04 2021-10-04 Outpatient EL Erik, HCATO PAIN [id number] [facility] 10:54:00 10:54:00 Kwasi [id number] [facility] 2021-09-04 2021-09-04 Outpatient EL Radha HCATO RADI [id number] [facility] 10:23:00 10:23:00 Zeke [id number] [facility] 2021-09-04 2021-09-04 Outpatient JUAN LUIS eDnnison RADI [id number] [facility] 07:45:00 07:45:00 Zeke Vargas [facility] 2021-06-30 2021-06-30 Telephone JAIME Cool [id number] Univers 00:00:00 00:00:00 Kori MUNOZ 350.1.13.10 i ty of HOSPITAL 4.2.7.2.686 Mitesh as [id number] [facility] [address] [place] 2021-06-28 2021-06-28 Laboratory Only, Ang Db Test [facility] 1.2.8 40.114 [id number] Univers 16:25:51 16:35:51 Only Unknown, Attending [facility] 350.1.13.10 ity of [place] 4.2.7.2.686 Mitesh as Bert?Blea [phone] [address] Medical Office Building 2021-06-28 2021-06-28 Outpatient R [facility] [id number] Univers 16:20:00 16:20:00 [id number] ity [facility] 2021-06-28 2021-06-28 Outpatient R UNKNOWN, [facility] [id number] Univers 16:20:00 16:20:00 ATTENDING ity [facility] 2021-03-27 2021-03-27 Outpatient MANUEL MorelosTO PAIN [id number] [facility] 07:55:00 07:55:00 Kwasi [id number] [facility] 2020-12-25 2020-12-25 Patient Rashaad [facility] 1.2.840.114 [id number] Univers 00:00:00 00:00:00 Outreach Monty PRIMARY [id number] i ty of [facility] 4.2.7.2.[place] [id number] N[place] dical [address] [place] [address] 2020-12-25 2020-12-25 Patient Rashaad [facility] 1.2.840.114 [id number] 00:00:00 00:00:00 Outreach Monty PRIMARY [id number] Carlos CARE 4.2.7.2.686 PAVILLION [id number] 388 2020-11-07 2020-11-07 Outpatient JUAN LUIS Jimenez PAIN [id number] [facility] 10:00:00 10:00:00 Lee [id number] [facility] 2020-09-28 2020-09-28 Outpatient JUAN LUIS Garcia RADI [id number] [facility] 14:30:00 14:30:00 Zeke [facility] 2020-09-27 2020-09-27 [facility] [id number] Univers 09:56:00 14:40:00 Encounter Callum Arthur 350.1.13.10 ity of [place] 4.2.7.2.686 [facility] Surgical [id number] Med ica[address] 2020-09-27 2020-09-27 [facility] [id number] 09:56:00 14:40:00 Encounter Callum Arthur 350.1.13.10 [place] 4.2.7.2.686 Surgical [id number] [place] [address] 2020-09-25 2020-09-25 Laboratory Only, [facility] Test [facility] 1.2.840. 114 [id number] Univers 11:47:11 12:02:11 Only StarrCallum 350.1.13.1 0 ity of [place] 4.2.7.2.686 [facility] [place] [id number] [address] 2020-09-25 2020-09-25 Laboratory Only, [facility] 1.2.840.114 [id number] 11:47:11 12:02:11 Only Test [place] 350.1.13.10 [place] 4.2.7.2.686 [place] [id number] [facility] 2020-09-25 2020-09-25 Outpatient R [facility] [id number] Univers 11:45:00 11:45:00 [facility] 2020-09-25 2020-09-25 Outpatient R [facility] [id number] Univers 11:45:00 11:45:00 CALLUM [facility] 2020-09-06 2020-09-06 [facility] [id number] Univers 10:06:00 12:57:00 Encounter Callum Bocanegra Sandhya 350.1.13.10 it[place]2.[place] [id number] [facility] [address] [place] 2020-09-06 2020-09-06 Hospital Starr [facility] [id number] 10:06:00 12:57:00 Encounter Callum Sahra Sandhya 350.1.13.10 [place] 4.2.7.2.686 Surgical [id number] [place] [address] 2020-09-06 2020-09-06 Anesthesia Bony Menendez [facility] 1.2.840.11 [id number] Univers 11:47:00 12:19:00 Zeke Small 350.1.13.10 ity [place] 4.2.7.2.686 [place] [id number] [address] 2020-09-06 2020-09-06 Anesthesia Bony Menendez [facility] 1.2.840.11 [id number] 11:47:00 12:19:00 Zeke Small 350.1.13.10 [place] 4.2.7.2.686 Surgical [id number] [place] [address] 2020-09-05 2020-09-05 Laboratory Only, [facility] Test [facility] 1.2.840. 114 [id number] Univers 11:08:04 11:23:04 Only StarrCallum 350.1.13.1 0 ity of [place] 4.2.7.2.686 [place] [id number] [address] 2020-09-05 2020-09-05 Laboratory Only, [facility] 1.2.840.114 [id number] 11:08:04 11:23:04 Only Test Sandhya 350.1.13.10 [place] 4.2.7.2.686 [place] [id number] [facility] 2020-09-05 2020-09-05 Outpatient R [facility] [id number] Univers 11:15:00 11:15:00 [id number] ity of [facility] 2020-09-05 2020-09-05 Outpatient R STARR [facility] [id number] Univers 11:15:00 11:15:00 CALLUM ity of [facility] 2020-09-05 2020-09-05 Orders Doctor JAIME 1.2.840.114 [id number] Univers 00:00:00 00:00:00 Only Unassigned, ALEXANDER 350.1.13.10 ity of [facility] 4.2.7.2.686 Mitesh as [id number] [address] 2020-09-05 2020-09-05 Orders Doctor JAIME 1.2.840.114 [id number] 00:00:00 00:00:00 Only Unassigned, ALEXANDER 350.1.13.10 [facility] 4.2.7.2.686 [id number] 2020-08-28 2020-08-28 Sales Order Coordinator Ryan Alaom Lab Main [facility] 1.2.8 40.114 [id number] Univers 16:16:33 16:31:33 Visit Callum Ansari 350.1.13.1 0 ity [place].2.[place].2.[place] Profess[place] [id number] N[place] dical nal 353 [facility] 2020-08-28 2020-08-28 Outpatient R [facility] [id number] Univers 16:15:00 16:15:00 [id number] ity [facility] 2020-08-28 2020-08-28 [facility] [id number] Univers 16:15:00 16:15:00 CALLUM ity [facility] 2020-08-11 2020-08-11 Telephone Melita [facility] 1.2.840.114 [id number] Univers 00:00:00 00:00:00 [facility] 350.1.13.10 it y of Surgical 4.2.7.2.686 Mitesh as Specialti [id number] Me dical es 198 [facility] 2020-07-24 2020-07-24 Orders Doctor SADNOVAL 1.2.840.114 [id number] Univers 00:00:00 00:00:00 Only Unassigned, ALEXANDER 350.1.13.10 ity of [facility] 4.2.7.2.686 Mitesh as [id number] [address] 2020-07-20 2020-07-20 [facility] 1.2.840.114 [id number] Univers 13:45:21 23:59:00 Encounter Mel Hernandez 350.1.13.10 ity of Surgical 4.2.7.2.686 Mitesh as Specialti [id number] Nc dical es 809 [facility] 2020-07-20 2020-07-20 [facility] 1.2.840.114 [id number] Univers 13:45:20 23:59:00 Encounter Mel Hernandez 350.1.13.10 ity of Surgical 4.2.7.2.686 Mitesh as Specialti [id number] Nc dical es 809 [facility] 2020-07-20 2020-07-20 [facility] [id number] Univers 15:15:00 15:15:00 [facility] 2020-07-20 2020-07-20 Office [facility] [id number] Univers 13:25:25 14:24:07 Visit Mel Hernandez 350.1.13.10 it y of Surgical 4.2.7.2.686 Mitesh as Specialti [id number] Nc dical es 198 [facility] 2020-07-20 2020-07-20 Office [facility] [id number] 13:25:25 14:24:07 Visit Mel Hernandez 350.1.13.10 Surgical 4.2.7.2.686 Specialti [id number] [address] 2020-07-20 2020-07-20 Orders Doctor JAIME 1.2.840.114 [id number] Univers 00:00:00 00:00:00 Only Unassigned, ALEXANDER 350.1.13.10 ity of [facility] 4.2.7.2.686 Mitesh as [id number] [address] 2020-07-17 2020-07-17 Orders Doctor JAIME 1.2.840.114 [id number] Univers 00:00:00 00:00:00 Only Unassigned, ALEXANDER 350.1.13.10 ity of [facility] 4.2.7.2.686 Mitesh as [id number] [place] [address] Branch 2019-04-09 2019-04-10 Outpatient nullFlavo MNA [id number] [facility] 21:00:00 04:59:59 r Neurology 03 l Oswaldo Taylor 2019-01-22 2019-01-22 Outpatient TERESSA GANNON [id number] [facility] 13:15:00 13:15:00 02 l [place] 2018-12-25 2018-12-25 Outpatient IE VERONICA [id number] [facility] 13:30:00 13:30:00 01 l [place] 2018-11-12 2018-11-14 Outside nullFlavo MNA [id number] [facility] 17:43:00 05:59:59 Medical r Neurology 01 l Records Oswaldo Taylor Results Test Description Test Time Test Comments Results Result [facility] e Comments - XR FLUORO FOR 2021-12-13 SPINE INJ 10:02:00 [facility] 1950 Sex: M Patient Name: KHANG APARICIO Unit No: [id number] EXAMS: CPT CODE: [id number] XR FLUORO FOR SPINE INJ [id number] LUMBAR EPIRADICULAR INJECTION REFERRAL PHYSICIAN: Dr. Garcia PREOPERATIVE DIAGNOSIS: Lumbar Radiculitis POSTOPERATIVE DIAGNOSIS: Lumbar radiculitis PROCEDURES PERFORMED: Fluoroscopically guided needle localization of the L3, L4, L5, S1 spinal nerves with transforaminal epidurograms and epidural injection of local anesthetic and steroid. FINDINGS: Good flow of dye through S1 L5 and L3. L4 has a large osteophytic ridging from the facet requiring an inferior nerve approach. Despite this contrast is seen to flow along the nerve into the epidural space but the lateral recess is somewhat restricted. Loss of height of the disc is most prominent at 4/5 as is endplate spurring of inferior fourth superior 5. Some endplate spurring also noted at inferior to and superior 4 as well. Preinjection VAS 7/10. Postinjection VAS 0/10. Steroid response pending follow-up. ESTIMATED BLOOD LOSS: Minimal ANESTHESIA: TIVA COMPLICATIONS: None DETAILS OF PROCEDURE: After obtaining stable vital signs, informed consent and IV access, with no contraindications, the patient was taken to the operating room and placed in a prone position with all extremities padded and appropriate monitors placed. The patient was sterilely prepped and draped over the lumbosacral spine. Using fluoroscopic visualization the insertion sites were marked for paravertebral approaches and using standard technique, a 22 gauge needle was advanced to the base of each pedicle without paresthesias. Isovue-300 contrast 0.2 mL of was injected incrementally with frequent negative aspirations to produce each epidurogram. There were no signs of intravascular or intrathecal uptake. Bupivicaine 0.75% 0.25 mL with lidocaine 4% 0.25 mL and Decadron 5 mg was then incrementally injected with frequent negative aspirations and again there were no signs of intravascular or intrathecal uptake. The needles were removed and the patient was taken to the PACU in good condition. Image: Image 1 Image: Image 2 Image: Image 3 at 1002 Reported and signed by: KWASI VALENCIA MD [facility] NAME: KHANG APARICIO [address] [facility] PHYS: Kwasi Valencia [place], [place] [address] : 1950 AGE: 71 SEX: M LOC: NatalieGREGORY PHONE #: [phone] EXAM DATE: 12/13/2021 STATUS: REG [facility] FAX #: [phone] RAD #: D/C DT PAGE 1 Signed Report (CONTINUED) Patient Name: KHANG APARICIO Unit No: [id number] EXAMS: CPT CODE: [id number] XR FLUORO FOR SPINE INJ 87661 (Continued) CC: Technologist: Ana M Jackson(R) Transcribed D/ (1002) WilberJMA2 [facility] NAME: KHANG APARICIO [address] [facility] PHYS: Kwasi Valencia [place], [place] [address] : 1950 AGE: 71 SEX: M LOC: BABAK PHONE #: [phone] EXAM DATE: 12/13/2021 STATUS: REG [facility] FAX #: [phone] RAD #: D/C DT PAGE 2 Signed Report Patient Name: KHANG APARICIO Unit No: [id number] EXAMS: CPT CODE: [id number] XR FLUORO FOR SPINE INJ 02290 (Continued) Orig Print D/T: S: 12/13/2021 (1005) [facility] NAME: KHANG APARICIO [address] [facility] PHYS: Kwasi Valencia [place], [place] [address] : 1950 AGE: 71 SEX: M LOC: BABKA PHONE #: [phone] EXAM DATE: 12/13/2021 STATUS: REG [facility] FAX #: [phone] RAD #: D/C DT PAGE 3 Signed Report - XR FLUORO FOR 2021-10-04 SPINE INJ 14:44:00 [facility] 1950 Sex: M Patient Name: KHANG APARICIO Unit No: [id number] EXAMS: CPT CODE: [id number] XR FLUORO FOR SPINE INJ 42439 LUMBAR EPIRADICULAR INJECTION REFERRAL PHYSICIAN: Dr. Garcia PREOPERATIVE DIAGNOSIS: Lumbar Radiculitis POSTOPERATIVE DIAGNOSIS: Lumbar radiculitis PROCEDURES PERFORMED: Fluoroscopically guided needle localization of the right L3, L4, L5, S1 spinal nerves with transforaminal epidurograms and epidural injection of local anesthetic and steroid. FINDINGS: Flow of dye through L3 and S1 narrow dye pattern seen at L5. There is a significant bony protrusion lateral to the right L4/5 facet impending the superior aspect of the foramen and preventing proper cephalad needle placement. Dye is seen to flow through the neuroforamen however. Preinjection VAS 7/10. Postinjection VAS 0/10. Steroid response pending follow-up. ESTIMATED BLOOD LOSS: Minimal ANESTHESIA: TIVA COMPLICATIONS: None DETAILS OF PROCEDURE: After obtaining stable vital signs, informed consent and IV access, with no contraindications, the patient was taken to the operating room and placed in a prone position with all extremities padded and appropriate monitors placed. The patient was sterilely prepped and draped over the lumbosacral spine. Using fluoroscopic visualization the insertion sites were marked for paravertebral approaches and using standard technique, a 22 gauge needle was advanced to the base of each pedicle without paresthesias. Isovue-300 contrast 0.2 mL of was injected incrementally with frequent negative aspirations to produce each epidurogram. There were no signs of intravascular or intrathecal uptake. Bupivicaine 0.75% 0.25 mL with lidocaine 4% 0.25 mL and Decadron 5 mg was then incrementally injected with frequent negative aspirations and again there were no signs of intravascular or intrathecal uptake. The needles were removed and the patient was taken to the PACU in good condition. Image: Image 1 Image: Image 2 Image: Image 3 at 1444 Reported and signed by: KWASI VALENCIA MD [facility] NAME: KHANG APARICIO [address] [facility] PHYS: Kwasi Valencia [place], [place] [address] : 1950 AGE: 71 SEX: M LOC: NatalieGREGORY PHONE #: [phone] EXAM DATE: 10/04/2021 STATUS: REG [facility] FAX #: [phone] RAD #: D/C DT PAGE 1 Signed Report (CONTINUED) Patient Name: KHANG APARICIO Unit No: [id number] EXAMS: CPT CODE: [id number] XR FLUORO FOR SPINE INJ 87106 (Continued) CC: Technologist: Ana M Jackson(R) Transcribed D/ (1444) WilberJMA2 [facility] NAME: KHANG APARICIO [address] [facility] PHYS: Kwasi Valencia [place], [place] [address] : 1950 AGE: 71 SEX: M LOC: BABAK PHONE #: [phone] EXAM DATE: 10/04/2021 STATUS: REG [facility] FAX #: [phone] RAD #: D/C DT PAGE 2 Signed Report Patient Name: KHANG APARICIO Unit No: [id number] EXAMS: CPT CODE: [id number] XR FLUORO FOR SPINE INJ 37679 (Continued) Orig Print D/T: S: 10/04/2021 (1448) [facility] NAME: KHANG APARICIO [address] [facility] PHYS: ARTKwasi Martinez [place], [place] [address] : 1950 AGE: 71 SEX: M LOC: BABAK PHONE #: [phone] EXAM DATE: 10/04/2021 STATUS: REG [facility] FAX #: [phone] RAD #: D/C DT PAGE 3 Signed Report - MRI L-SPINE W WO 2021-09-05 CON 09:10:00 [facility] 1950 Sex: M Patient Name: KHANG APARICIO Unit No: [id number] EXAMS: CPT CODE: [id number] MRI L-SPINE W WO CON 75874 TECHNIQUE: Multiplanar, multisequence MRI examination performed of the lumbar spine with and without intravenous contrast material. COMPARISON: MRI dated 10/16/2020 FINDINGS: Five lumbar type vertebra are assumed. Alignment: Slight retrolisthesis of L3-L4. Bone Lesion: No suspicious osseous lesion. Fracture: None present. Paraspinal Soft Tissues: Right renal T2 hyperintense lesions are likely benign cysts.. Conus Medullaris: Termination at T12/L1 level. Morphology is normal. L1/2: No significant abnormality. L2/3: A diffuse disc bulge is noted as well as mild facet hypertrophy and ligament flavum thickening. Moderate central canal stenosis is present as well as mild bilateral foraminal narrowing. L3/4: Slight retrolisthesis. A moderate right asymmetric disc bulge is present as well as mild facet hypertrophy. Right-sided laminectomy defect with decompression of the central canal. There is left lateral recess stenosis as well as mild left, moderate right foraminal stenosis. L4/5: A disc bulge is present with a superimposed central to left paracentral, measuring 4 mm in AP dimension, increased from prior exam and severely narrowing the left lateral recess. Right-sided laminectomy defect is again noted. There is moderate bilateral foraminal stenosis. L5/S1: A right asymmetric disc bulge is present with a residual right paracentral disc protrusion measuring 2 to 3 mm. Right greater than left facet hypertrophy. Mild right foraminal stenosis is present. No significant left foraminal or central canal stenosis. IMPRESSION: Postoperative lumbar spine with multilevel spondylosis as described. at 0910 Reported and signed by: Cem Henriquez M.D. [facility] NAME: KHANG APARICIO [address] [facility] PHYS: LINDYADamon - Zeke Garcia : 1950 AGE: 71 SEX: M [place], [place] [address] LOC: Y.RAD PHONE #: [phone] EXAM DATE: 09/04/2021 STATUS: [facility]P [facility] FAX #: [phone] RAD #: D/C DT PAGE 1 Signed Report (CONTINUED) Patient Name: KHANG APARICIO Unit No: [id number] EXAMS: CPT CODE: [id number] MRI L-SPINE W WO CON 35863 (Continued) CC: Technologist: Clair Granados, RT(R) Transcribed D/ (0910) MarleneJ [facility] NAME: KHANG APARICIO [address] [facility] PHYS: WIMDA.Juan Antonio - Zeke Garcia : 1950 AGE: 71 SEX: M [place] [address] LOC: Y.RAD PHONE #: [phone] EXAM DATE: 09/04/2021 STATUS: [facility]P CLI FAX #: [phone] RAD #: D/C DT PAGE 2 Signed Report Patient Name: KHANG APARICIO Unit No: [id number] EXAMS: CPT CODE: [id number] MRI L-SPINE W WO CON 36589 (Continued) Orig Print D/T: S: 09/05/2021 (0914) [facility] NAME: KHANG APARICIO [address] [place] [address] PHYS: WIMDA.Juan Antonio - Zeke Garcia : 1950 AGE: 71 SEX: M [place] [address] LOC: Y.RAD PHONE #: [phone] EXAM DATE: 09/04/2021 STATUS: DEP CLI FAX #: [phone] RAD #: D/C DT PAGE 3 Signed Report - XR FLUORO FOR 2021-03-27 SPINE INJ 11:58:00 [facility] 1950 Sex: M Patient Name: KHANG APARICIO Unit No: [id number] EXAMS: CPT CODE: [id number] XR FLUORO FOR SPINE INJ 83512 LUMBAR EPIRADICULAR INJECTION REFERRAL PHYSICIAN: Dr. Naranjo PREOPERATIVE DIAGNOSIS: Lumbar Radiculitis POSTOPERATIVE DIAGNOSIS: Lumbar radiculitis PROCEDURES PERFORMED: Fluoroscopically guided needle localization of the right L3, L4, L5, S1 spinal nerves with transforaminal epidurograms and epidural injection of local anesthetic and steroid. FINDINGS: There is surd significant foraminal stenosis at the L4/5 foramen requiring an inferior radicular approach. This seems to be mostly due to significant facet hypertrophy and movement of the L5 superior articular process up into the L4 pedicle. Endplate spurring is seen at all levels especially the L4/5 level. Preinjection VAS 7/10. Postinjection VAS 0/10. Steroid response pending follow-up. ESTIMATED BLOOD LOSS: Minimal ANESTHESIA: TIVA COMPLICATIONS: None DETAILS OF PROCEDURE: After obtaining stable vital signs, informed consent and IV access, with no contraindications, the patient was taken to the operating room and placed in a prone position with all extremities padded and appropriate monitors placed. The patient was sterilely prepped and draped over the lumbosacral spine. Using fluoroscopic visualization the insertion sites were marked for paravertebral approaches and using standard technique, a 22 gauge needle was advanced to the base of each pedicle without paresthesias. Isovue-300 contrast 0.2 mL of was injected incrementally with frequent negative aspirations to produce each epidurogram. There were no signs of intravascular or intrathecal uptake. Bupivicaine 0.75% 0.25 mL with lidocaine 4% 0.5 mL and Decadron 5 mg was then incrementally injected with frequent negative aspirations and again there were no signs of intravascular or intrathecal uptake. The needles were removed and the patient was taken to the PACU in good condition. Image: Image 1 Image: Image 2 Image: Image 3 at 1158 Reported and signed by: KWASI VALENCIA MD [facility] NAME: KHANG APARICIO [address] [facility] PHYS: ARTJE - Erik,Kwasi [place] [address] : 1950 AGE: 70 SEX: M LOC: BABAK PHONE #: [phone] EXAM DATE: 03/27/2021 STATUS: REG [facility] FAX #: [phone] RAD #: D/C DT PAGE 1 Signed Report (CONTINUED) Patient Name: KHANG APARICIO Unit No: [id number] EXAMS: CPT CODE: [id number] XR FLUORO FOR SPINE INJ 31844 (Continued) CC: Technologist: Ana M Jackson(R) Transcribed D/ (1158) WilberJMA2 [facility] NAME: KHANG APARICIO [address] [facility] PHYS: Kwasi Valencia [place] [address] : 1950 AGE: 70 SEX: M LOC: BABAK PHONE #: [phone] EXAM DATE: 03/27/2021 STATUS: REG [place] FAX #: [phone] RAD #: D/C DT PAGE 2 Signed Report Patient Name: KHANG APARICIO Unit No: [id number] EXAMS: CPT CODE: [id number] XR FLUORO FOR SPINE INJ 79224 (Continued) Orig Print D/T: S: 03/27/2021 (1202) [facility] [place] NAME: KHANG APARICIO [address] [facility] PHYS: Kwasi Valencia [place] [address] : 1950 AGE: 70 SEX: M LOC: BABAK PHONE #: [phone] EXAM DATE: 03/27/2021 STATUS: REG [place] FAX #: [phone] RAD #: D/C DT PAGE 3 Signed Report - XR FLUORO FOR 2020-11-13 SPINE INJ 21:15:00 [facility] : 1950 Sex: M Patient Name: KHANG APARICIO Unit No: [id number] EXAMS: CPT CODE: [id number] XR FLUORO FOR SPINE INJ 24307 LUMBAR EPIRADICULAR INJECTION REFERRAL PHYSICIAN: Zeke Garcia M.D. PREOPERATIVE DIAGNOSIS: Lumbar Radiculitis POSTOPERATIVE DIAGNOSIS: Multilevel lumbar disc degeneration with spinal stenosis and right lower extremity radicular pain PROCEDURES PERFORMED: Fluoroscopically guided needle localization of the right L3, right L4, right L5 and right S1 spinal nerves with transforaminal epidurograms and epidural injection of local anesthetic and steroid. FINDINGS: Tight flow seen through the foramen with horizontal root signs at the L3-4 L4-5 and L5-S1 foramen. Flow was limited in all lateral recesses and proximally across the discs. Provocation with injection was negative. Anesthetic response was positive with the patient noting complete relief of his low back and right lower extremity pain. Preinjection VAS 7/10. Postinjection VAS 0/10. Steroid response pending follow-up. ESTIMATED BLOOD LOSS: Minimal ANESTHESIA: TIVA COMPLICATIONS: None DETAILS OF PROCEDURE: After obtaining stable vital signs, informed consent and IV access, with no contraindications, the patient was taken to the operating room and placed in a prone position with all extremities padded and appropriate monitors placed. The patient was sterilely prepped and draped over the lumbosacral spine. Using fluoroscopic visualization the insertion sites were marked for paravertebral approaches and using standard technique, a 25 gauge needle was advanced to the base of each pedicle without paresthesias. Isovue-300 contrast 0.2 mL of was injected incrementally with frequent negative aspirations to produce each epidurogram. There were no signs of intravascular or intrathecal uptake. Bupivicaine 0.75% 0.25 mL with lidocaine 4% 0.5 mL and Decadron 5 mg was then incrementally injected with frequent negative aspirations and again there were no signs of intravascular or intrathecal uptake. The needles were removed and the patient was taken to the PACU in good condition. Image: Image 1 Image: Image 2 at 2114 Reported and signed by: Lee Jimenez M.D. [facility] NAME: KHANG APARICIO [address] [facility] PHYS: Lee Bustillos MD [place] [address] : 1950 AGE: 70 SEX: M LOC: NatalieGREGORY PHONE #: [phone] EXAM DATE: 11/13/2020 STATUS: REG [facility] FAX #: [phone] RAD #: D/C DT PAGE 1 Signed Report (CONTINUED) Patient Name: KHANG APARICIO Unit No: [id number] EXAMS: CPT CODE: [id number] XR FLUORO FOR SPINE INJ 74991 (Continued) CC: Technologist: Ana M Jackson(R) Transcribed D/ (2114) [facility] [place] NAME: KHANG APARICIO [address] [facility] PHYS: Lee Bustillos MD [place] [address] : 1950 AGE: 70 SEX: M LOC: BABAK PHONE #: [phone] EXAM DATE: 11/13/2020 STATUS: REG [facility] FAX #: [phone] RAD #: D/C DT PAGE 2 Signed Report Patient Name: KHANG APARICIO Unit No: [id number] EXAMS: CPT CODE: [id number] XR FLUORO FOR SPINE INJ 19404 (Continued) Orig Print D/T: S: 11/13/2020 (2117) [facility] NAME: KHANG APARICIO [address] [facility] PHYS: Lee Bustillos MD [place] [address] : 1950 AGE: 70 SEX: M LOC: NatalieGREGORY PHONE #: [phone] EXAM DATE: 11/13/2020 STATUS: REG [facility] FAX #: [phone] RAD #: D/C DT PAGE 3 Signed Report - MRI L-SPINE W WO 2020-10-17 CON 10:17:00 [facility] 1950 Sex: M Patient Name: KHANG APARICIO Unit No: [id number] EXAMS: CPT CODE: [id number] MRI L-SPINE W WO CON 11540 MRI OF THE LUMBAR SPINE WITH AND WITHOUT CONTRAST DIAGNOSIS: 1. At L1-2, no disc bulge or herniation. Mild central canal stenosis. Mild facet arthropathy. No foraminal stenosis. 2. At L2-3, moderate disc degeneration. There is 3 mm of retrolisthesis of L2 on L3. 2 mm broad-based disc bulge with associated annular tear. Mild central canal stenosis. Mild bilateral facet arthropathy. Mild to moderate bilateral foraminal stenosis. 3. At L3-4, mild to moderate disc degeneration. 2 mm broad-based disc bulge and small posterior central annular tear. Patient status post right hemilaminectomy. 3 mm right foraminal disc protrusion. Moderate right foraminal stenosis. Mild left foraminal stenosis. 4. At L4-5, marked disc degeneration. Patient status post right hemilaminotomy. Mild residual central canal stenosis. Mild to moderate facet arthropathy. Moderate to marked right foraminal and mild to moderate left foraminal stenosis. 5. At L5-S1, mild disc degeneration. Patient status post laminectomy. Mild facet arthropathy. Moderate right foraminal stenosis. There is enhancing perineural fibrosis surrounding the right S1 nerve root in the lateral gutter. COMMENT: COMPARISON: No prior exams available. Sagittal and axial T1 weighted pre- and postcontrast, sagittal and axial T2 and sagittal STIR sequences are obtained of the lumbar spine. The lumbar vertebrae are within normal limits in signal. The findings are as above. The conus is in the expected location. 4 VIEW LUMBAR SPINE WITH FLEXION AND EXTENSION COMMENT: Marked degeneration of the L4-5 and L5-S1 disc. Moderate degeneration of the L2-L3 4 disc with anterior spondylosis. No abnormal motion is seen on flexion or extension. Pedicles and transverse processes are intact. Mild degeneration the SI joints. at 1017 Reported and signed by: Flip Bernard MD [facility] NAME: KHANG APARICIO [address] [facility] PHYS: WIMDA.01 - Zeke Garcia : 1950 AGE: 70 SEX: M [place] [address] LOC: Y.RAD PHONE #: [phone] EXAM DATE: 10/16/2020 STATUS: DEP CLI FAX #: [phone] RAD #: D/C DT PAGE 1 Signed Report (CONTINUED) Patient Name: KHANG APARICIO Unit No: [id number] EXAMS: CPT CODE: [id number] MRI L-SPINE W WO CON 34313 (Continued) CC: Technologist: EDWIN REYNA.MRI,CT Transcribed D/ (1017) Francisco J [facility] NAME: KHANG APARICIO [facility] PHYS: WIMDA.01 - Zeke Garcia : 1950 AGE: 70 SEX: M [place] [address] LOC: Y.RAD PHONE #: [phone] EXAM DATE: 10/16/2020 STATUS: DEP CLI FAX #: [phone] RAD #: D/C DT PAGE 2 Signed Report Patient Name: KHANG APARICIO Unit No: [id number] EXAMS: CPT CODE: [id number] MRI L-SPINE W WO CON 57636 (Continued) Orig Print D/T: S: 10/17/2020 (1020) [facility] NAME: KHANG APARICIO Juan Antonio [facility] PHYS: WIMDA.01 Zeke Purdy : 1950 AGE: 70 SEX: M [place] [address] LOC: JESSICA PHONE #: [phone] EXAM DATE: 10/16/2020 STATUS: [facility] FAX #: [phone] RAD #: D/C DT PAGE 3 Signed Report - XR L-SPINE 2020-10-17 4+VIEWS 10:17:00 [facility] : 1950 Sex: M Patient Name: KHANG APARICIO Unit No: [id number] EXAMS: CPT CODE: [id number] XR L-SPINE 4+VIEWS 60215 MRI OF THE LUMBAR SPINE WITH AND WITHOUT CONTRAST DIAGNOSIS: 1. At L1-2, no disc bulge or herniation. Mild central canal stenosis. Mild facet arthropathy. No foraminal stenosis. 2. At L2-3, moderate disc degeneration. There is 3 mm of retrolisthesis of L2 on L3. 2 mm broad-based disc bulge with associated annular tear. Mild central canal stenosis. Mild bilateral facet arthropathy. Mild to moderate bilateral foraminal stenosis. 3. At L3-4, mild to moderate disc degeneration. 2 mm broad-based disc bulge and small posterior central annular tear. Patient status post right hemilaminectomy. 3 mm right foraminal disc protrusion. Moderate right foraminal stenosis. Mild left foraminal stenosis. 4. At L4-5, marked disc degeneration. Patient status post right hemilaminotomy. Mild residual central canal stenosis. Mild to moderate facet arthropathy. Moderate to marked right foraminal and mild to moderate left foraminal stenosis. 5. At L5-S1, mild disc degeneration. Patient status post laminectomy. Mild facet arthropathy. Moderate right foraminal stenosis. There is enhancing perineural fibrosis surrounding the right S1 nerve root in the lateral gutter. COMMENT: COMPARISON: No prior exams available. Sagittal and axial T1 weighted pre- and postcontrast, sagittal and axial T2 and sagittal STIR sequences are obtained of the lumbar spine. The lumbar vertebrae are within normal limits in signal. The findings are as above. The conus is in the expected location. 4 VIEW LUMBAR SPINE WITH FLEXION AND EXTENSION COMMENT: Marked degeneration of the L4-5 and L5-S1 disc. Moderate degeneration of the L2-L3 4 disc with anterior spondylosis. No abnormal motion is seen on flexion or extension. Pedicles and transverse processes are intact. Mild degeneration the SI joints. at 1017 Reported and signed by: Flip Bernard MD [facility] NAME: KHANG APARICIO [address] [place] [address] PHYS: WIMDA.Juan Antonio - Zeke Garcia : 1950 AGE: 70 SEX: M [place] [address] LOC: Y.RAD PHONE #: [phone] EXAM DATE: 10/16/2020 STATUS: DEP CLI FAX #: [phone] RAD #: D/C DT PAGE 1 Signed Report (CONTINUED) Patient Name: KHANG APARICIO Unit No: [id number] EXAMS: CPT CODE: [id number] XR L-SPINE 4+VIEWS 47881 (Continued) CC: Technologist: RT. Jorge Luis(R) Transcribed D/ (1017) [email or web address] [facility] NAME: KHANG APARICIO [address] [facility] PHYS: WIMDA.Juan Antonio - Zeke Garcia : 1950 AGE: 70 SEX: M [place] [address] LOC: Y.RAD PHONE #: [phone] EXAM DATE: 10/16/2020 STATUS: DEP CLI FAX #: [phone] RAD #: D/C DT PAGE 2 Signed Report Patient Name: KHANG APARICIO Unit No: [id number] EXAMS: CPT CODE: [id number] XR L-SPINE 4+VIEWS 52259 (Continued) Orig Print D/T: S: 10/17/2020 (1020) [facility] NAME: KHANG APARICIO [address] [facility] PHYS: [place]Patricia - [place] : 1950 AGE: 70 SEX: M [place], [place] [address] LOC: Y.RAD PHONE #: [phone] EXAM DATE: 10/16/2020 STATUS: DEP CLI FAX #: [phone] RAD #: D/C DT PAGE 3 Signed Report BLOOD UREA NITROGEN 2020-10-16 15:25:00 Test Item Value Reference Range Interpretation Comme nts BLOOD UREA NITROGEN (test code = BUN) 10 mg/dL 7-18 N CREATININE W ESTIMATED [id number] 15:25:00 Test Item Value Reference Range Interpretation Comments GLOMERULAR FILTRATION 70.6 >60 Unit o f measure: RATE (test code = GFR) mL/mi n/1.73 [id number] Range:Healthy A dults >90 mL/min/1.73 m2 For Chronic Kid davy Disease: Stage II Mild Decrease i n GFR 60-90 Stage III Moderate Decrea se in GFR 30-59 Stag e IV Severe Decrease in GFR 15-29 Stage V Kidney Failure <15 CREATININE (test code = 1.04 mg/dL 0.55-1.30 N CREAT)
[2022-06-10 20:14] LABS: Absolute Lymphocytes (CBC) 1.2 K/uL (0.7-4.9); Hematocrit 45.3 % (39.6-49.0); Lymphocytes % 7.9 % (15.3-44.8); MCV 89.9 fL (80-100); MPV 8.4 fL (7.6-11.3); RBC Red Blood Cell Count 5.04 M/uL (4.33-5.43)
[2022-06-10] MEDS ORDERED: ONDANSETRON 4 MG/2 ML VIAL ONE (20:20)
[2022-06-10] MEDS ORDERED: FAMOTIDINE 20 MG/2 ML VIAL IV ONE (20:21)
[2022-06-10] MEDS ORDERED: NA CHLORIDE 0.9% 1,000 ML ONE (20:21)
[2022-06-10] MEDS ORDERED: MORPHINE 4 MG/ML SYR ONE (20:28)
[2022-06-10 20:38] LABS: Bilirubin Total 0.6 mg/dL (0.2-1.0); Potassium 3.8 mmol/L (3.5-5.1); Protein, Total 7.8 g/dL (6.4-8.2); Troponin High Sensitivity 9.6 pg/mL (<58.9)
[2022-06-10] MEDS ORDERED: FENTANYL CITR 100 MCG/2 ML ONE ×2 (21:19→22:41)
--- NOTE | 2022-06-10 21:42 | RAD REPORT ---
EXAM DESCRIPTION: CT - Abdomen Pelvis W Contrast - 06/10/2022 9:29 pm CLINICAL HISTORY: Abdominal pain COMPARISON: 2009 TECHNIQUE: Computed axial tomography of the abdomen pelvis was obtained. 100 cc Isovue-300 was admin istered intravenously. Oral contrast was not requested which limits evaluation of bowel and appendix All CT scans are performed using dose optimization technique as appropriate and may include automated exposure control or mA/KV adjustment according to patient size. FINDINGS: Mild fatty liver Gallbladder is distended. Spleen, pancreas and adrenals are unremarkable. Right renal cysts. Left kidney unremarkable. Diverticula stem from the colon without evidence of diverticulitis. Right hip arthroplasty has been performed. Moderate right inguinal hernia contains portion of sigmoid colon. IMPRESSION: Gallbladder distention Moderate right inguinal hernia contains portion of sigmoid colon.
--- NOTE | 2022-06-10 22:18 | RAD REPORT ---
EXAM DESCRIPTION: US - Abdomen Exam Limited - 06/10/2022 10:11 pm CLINICAL HISTORY: Abdominal pain. COMPARISON: None. FINDINGS: Gallbladder is distended. Multiple small gallstones. Gallbladder wall is not thickened The biliary tree is normal caliber. IMPRESSION: Cholelithiasis Gallbladder distention
--- NOTE | 2022-06-10 22:36 | EDPHYS ---
Physician Documentation [facility] Name: Gerson Hackett Age: 72 yrs Sex: Male : 1950 Arrival Date: 06/10/2022 Time: 18:34 Bed 13 Private MD: Miguel Martinez ED Physician Duane Umanzor HPI: 06/10 22:32 This 72 yrs old Male presents to ER via Wheelchair with complaints of Abdominal Pain, kb Vomiting. 22:32 The patient presents with abdominal pain in the left upper quadrant, in the left lower kb quadrant. Onset: The symptoms/episode began/occurred 1 week(s) ago. The symptoms do not radiate. Associated signs and symptoms: Pertinent positives: nausea and vomiting, Pertinent negatives: constipation, diarrhea, fever. The symptoms are described as constant. Modifying factors: The symptoms are alleviated by nothing, the symptoms are aggravated by pressure. Severity of pain: At its worst the pain was moderate in the emergency department the pain is unchanged. The patient has not experienced similar symptoms in the past. The patient has not recently seen a physician. Patient reports left abdominal pain that started a week ago. States he was waking up with vomiting over the last week. Symptoms got worse today.. Historical: - Allergies: 19:17 No Known Allergies; kb3 - Home Meds: 19:17 None [Active]; kb3 - PMHx: 19:17 None; kb3 - PSHx: 19:17 Right knee sx x2; Right hip replacement; kb3 - Immunization history:: Adult Immunizations up to date, Client reports receiving the 2nd dose of the Covid vaccine, Last tetanus immunization: up to date. - Social history:: Smoking status: Patient denies any tobacco usage or history of. Patient uses alcohol, occasionally. Patient/guardian denies using street drugs. ROS: 22:32 Constitutional: Negative for fever, chills, and weight loss. kb 22:32 Abdomen/GI: Positive for abdominal pain, nausea and vomiting, Negative for diarrhea, constipation. 22:32 All other systems are negative. Exam: 22:32 Constitutional: This is a well developed, well nourished patient who is awake, alert, kb and in no acute distress. Head/Face: Normocephalic, atraumatic. ENT: Moist Mucous membranes Cardiovascular: Regular rate and rhythm with a normal S1 and S2. No gallops, murmurs, or rubs. No pulse deficits. Respiratory: Respirations even and unlabored. No increased work of breathing. Talking in full sentences Skin: Warm, dry with normal turgor. Normal color. MS/ Extremity: Pulses equal, no cyanosis. Neurovascular intact. Full, normal range of motion. Neuro: Awake and alert, GCS 15, oriented to person, place, time, and situation. Moves all extremities. Normal gait. Psych: Awake, alert, with orientation to person, place and time. Behavior, mood, and affect are within normal limits. 22:32 Abdomen/GI: Inspection: abdomen appears normal, Bowel sounds: normal, Palpation: soft, in all quadrants, moderate abdominal tenderness, in the left upper quadrant and left lower quadrant. 22:39 ECG was reviewed by the Attending Physician. kb Vital Signs: 19:15 BP 162 / 86; Pulse 71; Resp 20; Temp 98.0; Pulse Ox 98% ; Weight 90.72 kg; Height 5 ft. kb3 10 in. (177.80 cm); Pain 9/10; 20:24 BP 146 / 71; Pulse 66; Resp 18 S; Pulse Ox 98% on R/A; ha1 21:25 BP 151 / 76; Pulse 63; Resp 17 S; Pulse Ox 98% on R/A; ha1 22:35 BP 151 / 76; Pulse 62; Resp 17 S; Pulse Ox 98% on R/A; ha1 23:04 BP 141 / 86; Pulse 63; Resp 17 S; Pulse Ox 97% on R/A; ha1 19:15 Body Mass Index 28.70 (90.72 kg, 177.80 cm) kb3 MDM: 19:21 Patient medically screened. kb 22:31 Data reviewed: vital signs, nurses notes. Data interpreted: Pulse oximetry: on room air kb is 98 %. Interpretation: normal. Counseling: I had a detailed discussion with the patient and/or guardian regarding: the historical points, exam findings, and any diagnostic results supporting the discharge/admit diagnosis, lab results, radiology results, the need for outpatient follow up, a family practitioner, a general surgeon, to return to the emergency department if symptoms worsen or persist or if there are any questions or concerns that arise at home. 22:34 ED course: Patient will call for follow-up with general surgery regarding her bladder kb distention and cholelithiasis tomorrow. Will return for worsening symptoms or any other concerns.. 06/10 19:21 Order name: CBC with Diff; Complete Time: 20:21 kb 06/10 19:21 Order name: CMP; Complete Time: 20:40 kb 06/10 19:21 Order name: Lipase; Complete Time: 20:40 kb 06/10 19:21 Order name: CT Abd/Pelvis - IV Contrast Only; Complete Time: 21:42 kb 06/10 19:22 Order name: Troponin HS; Complete Time: 20:40 kb 06/10 21:43 Order name: US Abdomen Limited; Complete Time: 22:20 kb 06/10 19:21 Order name: IV Saline Lock; Complete Time: 20:08 kb 06/10 19:21 Order name: Labs collected and sent; Complete Time: 20:08 kb 06/10 19:22 Order name: EKG; Complete Time: 19:22 kb 06/10 19:22 Order name: EKG - Nurse/Tech; Complete Time: 20:08 kb EC:39 Rate is 61 beats/min. Rhythm is regular. QRS [place] is Normal. CT interval is normal at kb 150 msec. QRS interval is normal at 88 msec. QT interval is normal at 440 msec. Administered Medications: 20:16 Drug: NS 0.9% 1000 ml Route: IV; Rate: 1 bolus; Site: right antecubital; lg3 21:17 Follow up: Response: No adverse reaction; IV Status: Completed infusion; IV Intake: lg3 1000ml 20:16 Drug: Pepcid (famotidine) 20 mg Route: IVP; Site: right antecubital; lg3 20:16 Follow up: Response: No adverse reaction lg3 20:16 Drug: Zofran (Ondansetron) 4 mg Route: IVP; Site: right antecubital; lg3 20:16 Follow up: Response: No adverse reaction lg3 20:22 Drug: morphine 4 mg Route: IVP; Infused Over: 4 mins; Site: right antecubital; lg3 21:13 Follow up: Response: No adverse reaction lg3 21:13 Drug: fentaNYL (PF) 50 mcg Route: IVP; Site: right antecubital; lg3 22:28 Follow up: Response: No adverse reaction lg3 22:41 Drug: Phenergan (promethazine) 12.5 mg Route: IVP; Site: right antecubital; ha1 23:00 Follow up: Response: No adverse reaction; Nausea is decreased ha1 22:41 Drug: fentaNYL (PF) 50 mcg Route: IVP; Site: right antecubital; ha1 23:00 Follow up: Response: No adverse reaction; Pain is decreased; RASS: Alert and Calm (0) ha1 :41 Drug: Bentyl (dicyclomine) 20 mg Route: PO; ha1 23:11 Follow up: Response: No adverse reaction ha1 Disposition Summary: 06/10/22 22:35 Discharge Ordered Location: Home kb Condition: Stable kb Diagnosis - Abdominal pain, Generalized - left sided kb - Other cholelithiasis without obstruction kb Followup: kb - With: Emergency Department - When: As needed - Reason: Worsening of condition Followup: kb - With: Private Physician - When: 2 - 3 days - Reason: Recheck today's complaints, Continuance of care, Re-evaluation by your physician Discharge Instructions: - Discharge Summary Sheet kb - Cholelithiasis, [id number] kb - Abdominal Pain, Adult, [id number] kb Forms: - Medication Reconciliation Form kb - Thank You Letter kb - Antibiotic Education kb - Prescription Opioid Use kb Prescriptions: - Zofran 4 mg Oral Tablet - take 1 tablet by ORAL route every 6 hours As needed; 12 tablet; Refills: 0, kb Product Selection Permitted - dicyclomine 20 mg Oral Tablet - take 1 tablet by ORAL route 4 times per day As needed; 12 tablet; Refills: 0, kb Product Selection Permitted Signatures: Dispatcher [employer] Gavi Rodríguez, REINSURANCE ACCOUNTANT-C MARIA DEL CARMEN-Isis [place], RN RN lg3 Monica Tamayo, RN RN ha1 Rabia Salvador, RN RN kb3
--- NOTE | 2022-06-10 22:36 | ER ---
Nurse's Notes [facility] Name: Gerson Hackett Age: 72 yrs Sex: Male : 1950 Arrival Date: 06/10/2022 Time: 18:34 Bed 13 Private MD: Miguel Martinez Diagnosis: Abdominal pain, Generalized-left sided;Other cholelithiasis without obstruction Presentation: 06/10 19:15 Chief complaint: Patient states: Pt reports LLQ abdominal pain that radiates into LUQ kb3 with several episodes of vomiting that began this morning. Reports acid reflux x 1 week, denies fever, diarrhea. Coronavirus screen: Vaccine status: Patient reports receiving the 2nd dose of the covid vaccine. Client denies travel out of the [place] in the last 14 days. Ebola Screen: Patient negative for fever greater than or equal to 101.5 degrees Fahrenheit, and additional compatible Ebola Virus Disease symptoms Patient denies exposure to infectious person. Patient denies travel to an Ebola-affected area in the 21 days before illness onset. No symptoms or risks identified at this time. Initial Sepsis Screen: Does the patient meet any 2 criteria? No. Patient's initial sepsis screen is negative. Does the patient have a suspected source of infection? No. Patient's initial sepsis screen is negative. Risk Assessment: Do you want to hurt yourself or someone else? Patient reports no desire to harm self or others. Onset of symptoms was June 10, 2022 at 09:00. 19:15 Method Of Arrival: Wheelchair kb3 19:15 Acuity: RUBIA 3 kb3 Triage Assessment: 19:17 General: Appears in no apparent distress. uncomfortable, Behavior is calm, cooperative. kb3 Pain: Complains of pain in left upper quadrant and left lower quadrant. GI: Reports lower abdominal pain, nausea, vomiting. Historical: - Allergies: 19:17 No Known Allergies; kb3 - Home Meds: 19:17 None [Active]; kb3 - PMHx: 19:17 None; kb3 - PSHx: 19:17 Right knee sx x2; Right hip replacement; kb3 - Immunization history:: Adult Immunizations up to date, Client reports receiving the 2nd dose of the Covid vaccine, Last tetanus immunization: up to date. - Social history:: Smoking status: Patient denies any tobacco usage or history of. Patient uses alcohol, occasionally. Patient/guardian denies using street drugs. Screenin:09 Abuse screen: Denies threats or abuse. Denies injuries from another. Nutritional lg3 screening: No deficits noted. Tuberculosis screening: No symptoms or risk factors identified. Fall Risk None identified. Assessment: 19:19 General: Gavi HOOKER to assess pt in triage. kb3 20:09 General: Appears in no apparent distress. uncomfortable, Behavior is calm, cooperative. lg3 Pain: Complains of pain in left lower quadrant and left upper quadrant. Neuro: No deficits noted. Level of Consciousness is awake, alert, obeys commands, Oriented to person, place, time, situation. Cardiovascular: No deficits noted. Denies chest pain, shortness of breath, Capillary refill < 3 seconds Clubbing of nail beds is absent JVD is absent Patient's skin is warm and dry. Respiratory: No deficits noted. Airway is patent Trachea midline Respiratory effort is even, unlabored, Respiratory pattern is regular, symmetrical, Breath sounds are clear bilaterally. GI: Abdomen is round non-distended, Bowel sounds present X 4 quads. Abd is soft X 4 quads Abdomen is tender to palpation in right upper quadrant and right lower quadrant Reports lower abdominal pain, upper abdominal pain, cramping, epigastric pain, intolerance of fluids, intolerance of food, nausea, vomiting. : No deficits noted. No signs and/or symptoms were reported regarding the genitourinary system. EENT: No deficits noted. No signs and/or symptoms were reported regarding the EENT system. Derm: No deficits noted. No signs and/or symptoms reported regarding the dermatologic system. Skin is intact, is healthy with good turgor, Skin is dry, Skin temperature is warm. Musculoskeletal: No deficits noted. No signs and/or symptoms reported regarding the musculoskeletal system. Circulation, motion, and sensation intact. Range of motion: intact in all extremities. 21:14 Reassessment: Patient appears in no apparent distress at this time. No changes from lg3 previously documented assessment. Patient and/or family updated on plan of care and expected duration. Pain level reassessed. Patient is alert, oriented x 3, equal unlabored respirations, skin warm/dry/pink. Pain: Complains of pain in left lower quadrant and left upper quadrant Pain currently is 10 out of 10 on a pain scale. Noted to be grimacing, guarding. 22:35 Reassessment: No changes from previously documented assessment. Patient and/or family ha1 updated on plan of care and expected duration. Pain level reassessed. Patient is alert, oriented x 3, equal unlabored respirations, skin warm/dry/pink. Vital Signs: 19:15 BP 162 / 86; Pulse 71; Resp 20; Temp 98.0; Pulse Ox 98% ; Weight 90.72 kg; Height 5 ft. kb3 10 in. (177.80 cm); Pain 9/10; 20:24 BP 146 / 71; Pulse 66; Resp 18 S; Pulse Ox 98% on R/A; ha1 21:25 BP 151 / 76; Pulse 63; Resp 17 S; Pulse Ox 98% on R/A; ha1 22:35 BP 151 / 76; Pulse 62; Resp 17 S; Pulse Ox 98% on R/A; ha1 23:04 BP 141 / 86; Pulse 63; Resp 17 S; Pulse Ox 97% on R/A; ha1 19:15 Body Mass Index 28.70 (90.72 kg, 177.80 cm) kb3 ED Course: 18:34 Patient arrived in ED. mr 18:34 Miguel Martinez MD is Private Physician. mr 19:17 Triage completed. kb3 19:17 Arm band placed on right wrist. kb3 19:21 Gavi Mclean FNP-C [facility]. kb 19:21 Duane Umanzor MD is Attending Physician. kb 20:06 Rosi Colby, RN is Primary Nurse. vc1 20:08 CBC with Diff Sent. lg3 20:08 CMP Sent. lg3 20:09 Patient has correct armband on for positive identification. Placed in gown. Bed in low lg3 position. Call light in reach. Side rails up X 1. Client placed on continuous cardiac and pulse oximetry monitoring. NIBP monitoring applied. Door closed. Noise minimized. Warm blanket given. Family accompanied patient. 20:09 Lipase Sent. lg3 20:09 Inserted saline lock: 20 gauge in right antecubital area, using aseptic technique. lg3 Blood collected. 21:31 CT Abd/Pelvis - IV Contrast Only In Process Unspecified. EDMS 22:12 US Abdomen Limited In Process Unspecified. EDMS 23:05 No provider procedures requiring assistance completed. IV discontinued, intact, ha1 bleeding controlled, No redness/swelling at site. Pressure dressing applied. Administered Medications: 20:16 Drug: NS 0.9% 1000 ml Route: IV; Rate: 1 bolus; Site: right antecubital; lg3 21:17 Follow up: Response: No adverse reaction; IV Status: Completed infusion; IV Intake: lg3 1000ml 20:16 Drug: Pepcid (famotidine) 20 mg Route: IVP; Site: right antecubital; lg3 20:16 Follow up: Response: No adverse reaction lg3 20:16 Drug: Zofran (Ondansetron) 4 mg Route: IVP; Site: right antecubital; lg3 20:16 Follow up: Response: No adverse reaction lg3 20:22 Drug: morphine 4 mg Route: IVP; Infused Over: 4 mins; Site: right antecubital; lg3 21:13 Follow up: Response: No adverse reaction lg3 21:13 Drug: fentaNYL (PF) 50 mcg Route: IVP; Site: right antecubital; lg3 22:28 Follow up: Response: No adverse reaction lg3 22:41 Drug: Phenergan (promethazine) 12.5 mg Route: IVP; Site: right antecubital; ha1 23:00 Follow up: Response: No adverse reaction; Nausea is decreased ha1 22:41 Drug: fentaNYL (PF) 50 mcg Route: IVP; Site: right antecubital; ha1 23:00 Follow up: Response: No adverse reaction; Pain is decreased; RASS: Alert and Calm (0) ha1 22:41 Drug: Bentyl (dicyclomine) 20 mg Route: PO; ha1 23:11 Follow up: Response: No adverse reaction ha1 Medication: 23:07 VIS not applicable for this client. ha1 Intake: 21:17 IV: 1000ml; Total: 1000ml. lg3 Outcome: 22:35 Discharge ordered by MD. ellison 23:06 Discharged to home ambulatory. ha1 23:06 Condition: stable 23:06 Discharge instructions given to patient, significant other, Instructed on discharge instructions, follow up and referral plans. medication usage, Demonstrated understanding of instructions, follow-up care, medications, Prescriptions given X 2. 23:07 Patient left the ED. ha1 Signatures: Dispatcher [employer] EDMS Gavi Mclean AQUACULTURIST-C AQUACULTURIST-Ckb Bruce, Bell mr Juan, Isis, RN RN lg3 Rosi Colby, RN RN vc1 Monica Tamayo, RN RN ha1 Madeleine, Rabia, RN RN kb3
[2022-06-10] MEDS ORDERED: PROMETHAZINE INJ 25 MG/ML AMP ONE (22:40)
[2022-06-10] MEDS ORDERED: DICYCLOMINE HCL 10 MG CAP ONE (22:41)
[2022-06-11 00:59] VITALS: TEMP 98
[2022-06-11 01:08] VITALS: BP 141/86; O2SAT 97
--- NOTE | 2022-06-11 13:50 | EKG ---
Test Date: 2022-06-10 Test Time: 20:03:07 Basket Hand Weaver: MANUEL MEASUREMENT RESULTS: Intervals: Rate: 61 TX: 150 QRSD: 88 QT: 438 QTc: 440 [place]: P: 55 TX: 150 QRS: 22 T: 47 INTERPRETIVE STATEMENTS: Normal sinus rhythm Normal ECG No previous ECG available for comparison Electronically Signed On 06-11-22 13:48:38 CDT by Deondre Engel
== END 2022-06-10 23:07 | disposition home or self-care (01) ==
LOC: ER 18:31
DX: K80.80 Other cholelithiasis without obstruction (principal)
CPT/HCPCS: 96361; 93005; 85025; 36415; 84484; 83690; 80053; 74177; 76705; 96375; 96374; 99284; Q9967; J2550; J3010 ×2; J7030; J2405

== ENCOUNTER 2022-06-14 08:02 | Day surgery (SDC) | payer OTHER, BC ==
[2022-06-12 11:51] LABS: SARS-CoV-2 Antigen Rapid Res Negative (Negative)
[2022-06-12 11:51] LABS: Magnesium 2.4 mg/dL (1.8-2.4); Protime INR 1.04
--- NOTE | 2022-06-12 12:27 | RAD REPORT ---
EXAM DESCRIPTION: RAD - Chest Pa And Lat (2 Views) - 06/12/2022 11:26 am CLINICAL HISTORY: PREOP, pending hernia repair COMPARISON: Two view chest 05/15/2018 TECHNIQUE: Frontal and lateral views of the chest were obtained. FINDINGS: The lungs are normal volume. Interstitial markings are prominent but not clearly different from 2018 imaging. No failure, infiltrate or acute cardiopulmonary finding. Heart size is normal and central vasculature is within normal limits. No pleural effusion or pneu mothorax seen. No acute bony finding noted. No aortic abnormality. IMPRESSION: No acute cardiopulmonary process. Chronic interstitial pattern matches the 2018 study.
[2022-06-14] MEDS ORDERED: CEFAZOLIN 2 GM IN 0.9% NACL 2 GM/100 ML BAG ONE (08:23)
[2022-06-14] MEDS ORDERED: Ringers Lactate 1,000 ML IV ONE (08:23)
[2022-06-14] MEDS ORDERED: BUPIVACAINE 0.25% PF 10 ML VIAL ONE (09:37)
[2022-06-14] MEDS ORDERED: propofoL 200 MG/20 ML VIAL IV ONE (10:22)
[2022-06-14] MEDS ORDERED: LIDOCAINE 1% MPF 5 ML VIAL ONE (10:22)
[2022-06-14] MEDS ORDERED: FENTANYL CITR 100 MCG/2 ML ONE (10:22)
[2022-06-14] MEDS ORDERED: BUPIVACAINE 0.25% PF 10 ML VIAL SQ ONE ×2 (10:54)
[2022-06-14] MEDS ORDERED: dexAMETHasone 10 MG/ML VIAL ONE (10:55)
[2022-06-14] MEDS ORDERED: KETOROLAC 30 MG/ML INJ ONE (10:56)
[2022-06-14] MEDS ORDERED: ONDANSETRON 4 MG/2 ML VIAL ONE (11:26)
--- NOTE | 2022-06-14 12:00 | P.OP ---
Utility Accounts Director: Lynda Fernandes Preoperative diagnosis: Incarcerated RIGHT inguinal hernia Postoperative diagnosis: Incarcerated RIGHT inguinal hernia Primary procedure: Open RIGHT inguinal hernia repair with mesh Anesthesia: GETA + Local Estimated blood loss: <10cc Specimen: cord lipoma Findings: thin ext oblique aponeurosis, sigmoid colon in hernia Complications: None Implants: Bard Perfix Plug and Patch hernia mesh Transferred to: Recovery Room Condition: Good
[2022-06-14] MEDS: HYDROMORPHONE HCL 1 MG/ML INJ ONE ×4 (12:46→13:12)
--- NOTE | 2022-06-14 13:04 | OP ---
Date of Procedure: 06/14/2022 Surgeon: Stefan Avila MD, Greige Mender: Lynda Pride. Preoperative Diagnosis: Incarcerated right inguinal hernia. Postoperative Diagnosis: Incarcerated right inguinal hernia. Procedure Performed: Open right inguinal hernia repair with plug and patch hernia repair system. Anesthesia: General endotracheal plus local with 0.25% Marcaine. Estimated Blood Loss: Less than 10 cc. Specimen: Cord lipoma. Findings: 1.Thin external oblique aponeurosis was noted. 2.Sigmoid colon was noted to be contained within the hernia incarcerated and was reduced to the norm al intraabdominal compartment. Complications: None. Implants: The large Bard PerFix plug and patch hernia repair system was utilized. Disposition: The patient was transferred to recovery room in good condition. Procedure In Detail: After informed consent was obtained, patient was brought to the operating room and prepped and draped in the usual sterile fashion. After adequate anesthesia was achieved, an area of the right inguinal area was anesthetized with 0.25% Marcaine and sharply incised and dissection c ontinued down through the skin using a 15 blade. At this point, I encountered the Camper's fat and S carpa fascia using electrocautery. I dissected through these planes to expose the external oblique a poneurosis which was noted in its entirety. Fat was swept away from the anterior surface of the exte rnal oblique aponeurosis, found to be quite thin at this point, and this was opened initially with a 15 blade, opened in its entirety to the deep inguinal ring using Metzenbaum scissors, protecting the ilioinguinal iliohypogastric nerve throughout. I then encircled the spermatic cord structures and fo und a large cord lipoma which was dissected free from the spermatic cord structures. This was ligate d using electrocautery and sent off for pathologic examination. I then inspected the medial aspect o f the hernia defect which was found to be an indirect inguinal hernia containing sigmoid colon. The hernia sac was opened. The sigmoid colon was somewhat adherent to the hernia sac. This was easily d issected free, taken down to the alveolar tissue with a combination of sharp and blunt dissection as well as electrocautery protecting the sigmoid colon throughout. The sigmoid colon was inspected. No injury was appreciated. It was returned to the normal intraperitoneal compartment and a large Bard PerFix plug and patch hernia repair system was brought in. The hernia sac was closed at this point a nd imbricated, and at this point, the hernia sac was put behind in the preperitoneal space. The larg e mesh was deployed at this point and secured circumferentially around the deep inguinal ring through the hernia defect using a 2-0 PDS suture. At this point, the area was copiously irrigated and the p atient remained in the Trendelenburg position from the beginning of the procedure up to this point. At this point, I placed the patient back in the neutral position. There was no hernia contents appre ciated after Valsalva maneuver. At this point, I brought the hernia patch, sized it appropriately an d trimmed the mesh securing it to the pubic tubercle on the medial aspect. I placed it in the medial and lateral shelving edges using interrupted 2-0 PDS suture on the internal oblique aponeurosis and the undersurface of the inguinal ligament with good approximation of the tissues. At this point, the Brittnee was removed. The testicle was reduced to the normal position and the spermatic cord structu res were protected throughout. At this point, I irrigated the area once again, closed the external o blique aponeurosis using a running 3-0 Vicryl suture with good apposition of the tissues. I then anh sed the Camper's fat and Rey fascia en bloc using 3-0 Vicryl sutures and the deep dermal plane was closed using the same set 3-0 Vicryl suture. Skin was then closed with 4-0 Monocryl in running fash ion. Dermabond was placed over the top. The patient tolerated the procedure well without evidence o f complication and transferred to PACU in good condition. All counts were correct at the end of the case. TONI/KATHY Voice ID: [id number] Report ID: [id number]
[2022-06-14 15:03] VITALS: BP 136/75; TEMP 97.6
[2022-06-14 15:06] VITALS: O2SAT 98
== END 2022-06-14 14:30 | disposition home or self-care (01) ==
LOC: OR 08:02
PROVIDERS: ATTEND Surgery
PROC: 0YU50JZ Supplement Right Inguinal Region with Synthetic Substitute, Open Approach (ICD-10-PCS; principal; 2022-06-14 10:00)
DX: K40.90 Unilateral inguinal hernia, without obstruction or gangrene, not specified as recurrent (principal); Z20.822 Contact with and (suspected) exposure to COVID-19; F41.8 Other specified anxiety disorders
CPT/HCPCS: 36415; 83735; 84100; 85610; 88302; 85730; 71046; 87811; 49507; J2704; J3010; J1100; J1170 ×2; J0690; J7120; J2405

== ENCOUNTER 2022-06-18 12:11 | Inpatient (IN) | payer OTHER, BC ==
--- OUTSIDE RECORDS SUMMARY | 2022-06-18 12:18 | XMS REPORT | Continuity of Care Document ---
:[address] [facility] t Address [address] [place] [address] Care Team Providers Name Role Phone Bony Best Primary Care Physician Kwasi Valencia Attending Clinician Unavailable CALLUM ANSARI Attending Clinician Unavailable Lee Jimenez Attending Clinician Unavailable Zeke Garcia Attending Clinician Unavailable Anne CELESTE, Amrita Valdovinos Attending Clinician [phone] Clau PhD, James Seals Attending Clinician [phone] REX_Kaila_ Attending Clinician Unavailable Wilma Armstrong Attending Clinician [phone] Travon GREGG, Kori Lara Attending Clinician Unavailable Only, Ang Db Test Attending Clinician Unavailable Unknown, Attending Attending Clinician Unavailable UNKNOWN, ATTENDING Attending Clinician Unavailable Monty Neil DO Attending Clinician Callum Ansari MD Attending Clinician Only, Adc Test Attending Clinician Unavailable Bony Menendez CRNA Attending Clinician Zeke Small MD Attending Clinician Doctor Unassigned, [place] Attending Clinician Unavailable Pob, [facility] Lab Main Attending Clinician Unavailable Mel Hua MD Attending Clinician MEL HUA Attending Clinician Unavailable Jordan Clemons Attending Clinician Erki Kwasi Tavarez Admitting Clinician Unavailable CALLUM ANSARI Admitting Clinician Unavailable Physician, No Primary or Family Admitting Clinician Unavailfrida GOODMAN_Radha_Kamaljit_ Admitting Clinician Unavailable LEE SCRUGGS Admitting Clinician Unavailable Zeke Garcia Admitting Clinician Unavailable Callum Ansari MD Admitting Clinician Payers Payer Name Policy Type Policy Number Effective Date Expiration Date S kandice MEDICARE PART A \T\ [id number] 2015 B 00:00:00 BCBS TRADITIONAL [id number] 2019 00:00:00 [place]: [id number] 2015 NOVAfterStepsS SOLUTIONS 00:00:00 [place] [id number] 2019 (PPO) 00:00:00 Problems Condition Condition Condition Status Onset Resolution Last Treating Co mments Source Name Details Category Date Date Treatment Clinician Date Total knee Total knee Disease Active U nivers replacemen replacemen 8-11 it y of t status t status 00:00: [place] 00 Medical Branch Primary Primary Disease Active Univers osteoarthr osteoarthr 7-21 it y of itis of itis of 00:00: [place] right knee right knee 00 Sd dical Branch Hypertensi Hypertens Problem Active 2019-06-03 Memoria ve phil 13:30:47 l disorder, disorder, Herm lamar systemic systemic arterial arterial (disorder) (disorder) Active Problem 06/03/2019 [facility] 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 Wilfredo n (disorder) (disorder) Active Problem 06/03/2019 [facility] Posttrauma Posttraum Problem Active 2019-06-03 Memoria tic stress atic 13:30:47 l disorder stress [place] (disorder) disorder (disorder) Active Problem 06/03/2019 [facility] Simple Simple Problem Active 2019-06-03 Mem oria obesity obesity 13:30:47 l (disorder) (disorder) He rmann Active Problem 06/03/2019 [facility] Depressive Depressiv Problem Active 2019-06-03 Memoria disorder e disorder 13:30:47 l (disorder) (disorder) [place] r[place] Active Problem 06/03/2019 [facility] Hyperlipid Hyperlipi Problem Active 2019-06-03 Memoria emia demia 13:30:47 l (disorder) (disorder) [place] r[place] Active Problem 06/03/2019 [facility] No known No known Disease Metho di active active st problems problems Hospit a l Allergies, Adverse Reactions, Alerts Allergy Allergy Status Severity Reaction(s) Onset Inactive Treating Comm ents Source Name Type Date Date Clinician No Known DA Active U 2021- [facility] [place] [facility] No Known DA Active U 2020-10 [facility]- [place] 00:[facility] No Known DA Active U 2020- [facility] -16 [place] 00[facility] No Known DA Active U 2020-0 [facility] 6- [place] 00:[facility] dic [facility] No Known DA Active U 2020-0 [facility]ie - [place] 00[facility] No Known DA Active U 2020-0 [facility]ie - [place] 00:[facility] 00 dic [facility]ita [facility] No Known DA Active U 2020-0 [facility]ie - [place] 00:[facility] dic [facility]ita [facility] No Known DA Active U 2019-10 [facility]ie - [place] 00:[facility] dic [facility]ita [facility] No Known DA Active U 2019- [facility]- [place] 00[facility] hydrocod DA Active [facility] 11-17 [place] 00:[facility]: [facility] 00 dic [facility] felisha FA Active [facility] [place] 00:00: [facility] 00 dic [facility] hydrocod DA Active [facility] SWEATING [facility] one - [place] 00:00: Orth[facility] 00 dic [facility]ospita l felisha FA Active SV SWELLING, [facility] DIFFICULTY 1-29 [place] BREATHING 00:00: Orthope 00 dic Hospita l NO KNOWN Drug Active Univers ALLERGIE Class ity of S [facility] codeine codeine Active Memoria l [place] HYDROcod HYDROcod Active Memori a one one l [place] Family History Family Member Diagnosis Comments Start Date Stop Date Source Natural father Heart attack [facility] Natural mother Lung cancer [facility] Social History Social Habit Start Date Stop Date Quantity Comments Source Exposure to Not sure University of SARS-CoV-2 [facility] (event) [place] Alcohol intake 2022-03-29 2022-03-29 Current drinker of [facility] 00:00:00 00:00:00 alcohol (finding) Hospita l Tobacco use and 2021-11-08 2021-11-08 Smokeless tobacco [facility] exposure 00:00:00 00:00:00 non-user Hospital Alcohol Comment 2015-05-29 2015-05-29 Occasional Drinker U niversity of 00:00:00 00:00:00 [facility] Sex Ass[birth year] [employer] 00:00:00 00:00:00 Hospital Smoking Status Start Date Stop Date Source Social History [facility] Medications Ordered Filled Start Stop Current Ordering Indication Dosage Frequency Signature Comments Components Source Medication Medication Date Date Medication? Clinician (SIG) Name Name buPROPion Yes bupropion Met hodi XL 6-[address] (WELLBUTRIN 11:15: mg 24 hr Ho spita XL) 150 MG 21 tablet, l 24 hr extended tablet release metoprolol Yes metoprolol M ethodi tartrate 6-[address] (LOPRESSOR) 11:15: 25 mg Hospi ta 25 mg 21 tablet l tablet sertraline Yes sertraline M ethodi (ZOLOFT) 6-[address] 100 MG 11:15: tablet Hospita tablet 21 l traZODone Yes trazodone Met [facility] (DESYREL) 6-[address] 100 MG 11:15: tablet 3 Hospita tablet 21 tablets at l night prazosin 2019-10 Yes 6mg Take 6 mg [...] 24 (two) Medical capsule times Branch daily. prazosin [...] 24 (three) Medical times Branch daily. gabapentin 2019-10 Yes 300mg [...] by ity of capsule 20:56: mouth 3 [place] 24 (three) Medical times Branch daily. lactated 2019-10 Yes 1000mL at 42 Univer s ringers IV 2-09 mL/hr, ity of infusion [...] Vomiting (N/V), PACU neomycin-po 2019-10 Yes PRN, Univer s lymyxin-dex 2-09 Starting ity of amethasone 19:37: Fri [place] (MAXITROL) 00 09/27/20 at Med ical 3.5 1337, Branch mg/g-10,000 Until unit/g-0.1 Discontinu % ed, ophthalmic Routine, ointment Intra-op gentamicin 2019-10 Yes PRN, Univers injection 2- Starting ity of 19:37: Fri [place] 00 09/27/20 at [facility] 1337, Branch Until Discontinu ed, WAN, Intra-op dexamethaso 2019-10 Yes PRN, Univer s ne - Starting ity of (DECADRON 19:37: Fri [place] PHOSPHATE) 00 09/27/20 at [facility] ical injection 1337, Branch Until Discontinu ed, Routine, Intra-op ceFAZolin 2019-10 Yes PRN, Univers (ANCEF) - Starting ity of injection 19:37: Fri [place] 00 09/27/20 at [facility] 1337, Branch Until Discontinu ed, WAN, Intra-op carbachoL 2019-10 Yes PRN, Univers (MIOSTAT) 2- Starting ity of 0.01 % 19:35: Fri [place] intraocular 00 09/27/20 at Sd dical injection 1335, Branch Until Discontinu ed, Routine, Intra-op sodium 2019-10 Yes PRN, Univers chloride - Starting ity of (NS) 19:34: Fri [place] injection 00 09/27/20 at [facility] 1334, Branch Until Discontinu ed, Routine, Intra-op EPINEPHrine 2019-10 Yes PRN, Univer s 1:1,000 (1 - Starting ity o f mg/mL) 19:32: Fri [place] (ADRENALIN) 00 09/27/20 at Sd dical injection 1332, Branch Until Discontinu ed, Routine, Intra-op DUOVISC 2019-10 Yes PRN, Univers (DUOVISC 2- Starting ity of VISCO 19:32: Fri [place] ELASTIC) 3 00 09/27/20 at Med ical %-4 %(0.5 1332, Branch mL) 1 % Until (0.55 mL) Discontinu intraocular ed, injection Routine, Intra-op balanced 2019-10 Yes PRN, Univers salt irrig 2- Starting ity o f soln comb1 19:30: Fri (BSS PLUS) 09/27/20 at [facility] ical ophthalmic 1330, [place] solution Until 500 mL bag Discontinu ed, Routine, Intra-op water for 2019-10 Yes PRN, Univers irrigation 11-28 Starting ity o f irrigation 19:21: Fri [place] solution 00 09/27/20 at Medic al 1321, [place] Until Discontinu ed, Routine, Intra-op Hyaluronida 2019-10 Yes PRN, Univer s se, Human 11-28 Starting ity of Recomb. 19:20: Fri (HYLENEX) 09/27/[address] [facility] miryam injection 1320, [place] Until Discontinu ed, Routine, Intra-op eye block 2019-10 Yes PRN, Univers syringe 11 11-28 Starting ity o f mL 19:20: Fri [place] 09/27/20 at [facility] 1320, [place] Until Discontinu ed, Intra-op mydriatic 2019-10 2020- No .5mL 0.5 mL, Univ ers #5 11-28 Right Eye, ity of ophthalmic 16:15: 16:08 ONCE, 1 Mitesh as solution 00 :00 dose, Fri Medica l 0.5 mL 09/27/20 at [place] syringe 1015, Routine, DSU Pre-op lactated 2019-10 2020- No 1000mL at [address] [place] [address] rs ringers IV 11-28 mL/hr, ity of infusion 16:15: 16:11 1,000 mL, Mitesh as 1,000 mL 00 :00 IV Medical Infusion, [place] ONCE, 1 dose, Fri09/27/20 at 1015, Routine, DSU Pre-op prazosin 2019-10 Yes 6mg Take 6 mg Univ ers (MINIPRES) 1-19 by mouth ity o f 2 mg 17:56: at [place] capsule 10 bedtime. Medical Branch traZODONE 2019-10 Yes 150mg Take 150 Uni vers (DESYREL) 1-19 mg by ity of 50 mg 17:56: mouth at [place] tablet 10 bedtime. Medical Branch venlafaxine 2019-10 Yes 150mg Take 150 U nivers XR (EFFEXOR 1-19 mg by ity of XR) 150 mg 17:56: mouth 2 [place] 24 [place] 10 (two) Medical capsule times [place] daily. prazosin 2019-10 Yes 6mg Take 6 [...] propofoL IV 2019-10- No Intravenou Univers infusion 11-06 11-18 s, ONCE ity of 17:57: 18:19 INTRA [place] 00 :25 PROCEDURE, Medical Starting Branch Fri09/06/20 at 1157, Until Fri09/06/20 at 1219, Routine, Intra-op remifentani 2019-10- No Intravenou Univers L (ULTIVA) 11-06-18 s, ONCE ity o f injection 17:47: 18:19 INTRA [place] 00 :25 PROCEDURE, Medical Starting Branch Fri09/06/20 at 1147, Until Fri09/06/20 at 1219, Routine, Intra-op lidocaine 2019-10- No ONCE INTRA U nivers 2% 11-06 PROCEDURE, ity of (XYLOCAINE) 17:47: 18:19 Starting [place] 20 mg/mL (2 00 :25 Wed Medical %) 09/06/20 Branch injection at 1147, Until Fri09/06/20 at 1219, Routine, Intra-op lactated 2019-10- No IV Univers ringers IV 11-06 Infusion, ity of infusion 17:47: 18:19 [place]UOUS [place] 00 :25 PRN, Medical Starting Branch Fri09/06/20 at 1147, Until Fri09/06/20 at 1219, Routine, Intra-op water for 2019-10 Yes PRN, Univers irrigation 11-06 Starting ity o f irrigation 17:42: Wed [place] solution 09/06/20 Medical at 1142, Branch Until Discontinu ed, Routine, Intra-op sodium 2019-10 Yes PRN, Univers chloride 11-06 Starting ity of (NS) 17:42: [facility] injection 09/06/20 Medica l at 1142, Branch Until Discontinu ed, Routine, Intra-op neomycin-po 2019-10 Yes PRN, Univer s lymyxin-dex 11-06 Starting ity of amethasone 17:42: [facility] (MAXITROL) 09/06/20 Medic al 3.5 at 1142, Branch mg/g-10,000 Until unit/g-0.1 Discontinu % ed, ophthalmic Routine, ointment Intra-op Hyaluronida 2019-10 Yes PRN, Univer s se, Human 11-06 Starting ity of Recomb. 17:41: [facility] (HYLENEX) 09/06/20 Medica l injection at 1141, Branch Until Discontinu ed, Routine, Intra-op eye block 2019-10 Yes PRN, Univers syringe 11-06 Starting ity o f mL 17:41: [facility] 09/06/20 Medical at 1141, Branch Until Discontinu ed, Intra-op EPINEPHrine 2019-10 Yes PRN, Univer s 1:1,000 (11-06 Starting ity o f mg/mL) 17:41: [facility] (ADRENALIN) 09/06/20 Medi miryam injection at 1141, Branch Until Discontinu ed, Routine, Intra-op DUOVISC 2019-10 Yes PRN, Univers (DUOVISC 11-06 Starting ity of VISCO 17:41: Wed [place] ELASTIC) 3 09/06/20 Medic al %-4 %(0.5 at 1141, Branch mL) 1 % Until (0.55 mL) Discontinu intraocular ed, injection Routine, Intra-op dexamethaso 2019-10 Yes PRN, Univer s ne 11-06 Starting ity of (DECADRON 17:41: Wed [place] PHOSPHATE) 09/06/20 Medic al injection at 1141, Branch Until Discontinu ed, Routine, Intra-op ceFAZolin 2019-10 Yes PRN, Univers (ANCEF) 11-06 Starting ity of injection 17:41: Wed [place] 09/06/20 Medical at 1141, Branch Until Discontinu ed, WAN, Intra-op carbachoL 2019-10 Yes PRN, Univers (MIOSTAT) 11-06 Starting ity of 0.01 % 17:41: Wed [place] intraocular 09/06/20 Medi miryam injection at 1141, Branch Until Discontinu ed, Routine, Intra-op balanced 2019-10 Yes PRN, Univers salt irrig 11-06 Starting ity o f soln comb1 17:40: Fri [place] (BSS PLUS) 09/06/20 Medic al ophthalmic at 1140, Branc h solution Until 500 mL bag Discontinu ed, Routine, Intra-op mydriatic 2019-10 2020- No .5mL 0.5 mL, Univ ers #5 11-06 Left Eye, ity of ophthalmic 16:30: 16:31 ONCE, 1 Mitesh as solution 00 :00 dose, Fri Medica l 0.5 mL 09/06/20 Branch syringe at 1030, Routine lactated 2019-10 2020- No 1000mL at 42 Unive rs ringers IV 11-06 11-18 mL/hr, ity of infusion 16:30: 16:38 1,000 mL, Mitesh as 1,000 mL 00 :00 IV Medical Infusion, Branch ONCE, 1 dose, Fri09/06/20 at 1030, Routine, DSU Pre-op venlafaxine Yes 150mg Take 150 U nivers XR (EFFEXOR 8-14 mg by ity of XR) 150 mg 01:50: mouth 2 [place] 24 [place] 54 (two) Medical capsule times [place] daily. prazosin Yes 6mg Take 6 mg Univ ers (MINIPRES) 8-14 by mouth ity o f 2 mg 01:50: at [place] capsule 54 bedtime. Medical Branch traZODONE Yes 150mg Take 150 Uni vers (DESYREL) 8-14 mg by ity of 50 mg 01:50: mouth at [place] tablet 54 bedtime. Medical Branch venlafaxine Yes [...] [place] tablet 54 bedtime. Medical Branch celecoxib Yes 200mg Take 1 Cap U nivers (CELEBREX) 8-13 by mouth 2 ity of 200 mg 00:00: (two) [place] capsule 00 times Medical daily with Branch meals. HYDROmorphO Yes 2mg Take 1 Tab Univers ne 8-13 by mouth ity of (DILAUDID) 00:00: every 4 [place] 2 mg tablet 00 (four) Medica l hours as Branch needed for Pain (scale 4-6). busPIRone 0 Yes 5mg Take 1 Tab Un milind [...] 2015-0 Yes 5mg Take 1 Tab Un milnid (BUSPAR) 5 8-13 by mouth ity o [...] 2020-09-27 19:58:00 140 mm[Hg] Univer sity of pressure [facility] Diastolic blood 2020-09-27 19:58:00 76 mm[Hg] [facility] Heart rate 2020-09-27 19:58:00 61 /min [facility] Respiratory rate 2020-09-27 19:58:00 18 /min [facility] in 2020-09-27 19:58:00 94 /min [facility] Arterial blood by [facility] Pulse oximetry Branch Body temperature 2020-09-27 19:43:00 36.56 Roxana Univ ersity of [place] [facility] Body height 2020-09-25 20:00:00 177.8 cm Universi ty of [place] [facility] Body weight 2020-09-25 20:00:00 88.451 kg Universi ty [facility] [place] [facility] BMI 2020-09-25 20:00:00 27.98 kg/m2 Universi ty [facility] [place] [facility] Systolic blood 2020-09-27 19:58:00 140 mm[Hg] Univer sity of pressure [place] [facility] Diastolic blood 2020-09-27 19:58:00 76 mm[Hg] Unive rsity of pressure [place] [facility] Heart rate 2020-09-27 19:58:00 61 /min Universi ty [facility] [place] [facility] Respiratory rate 2020-09-27 19:58:00 18 /min Univ ersity of [place] [facility] Oxygen saturation in 2020-09-27 19:58:00 94 /min University of Arterial blood by [place] Medi miryam Pulse oximetry Branch Body temperature 2020-09-27 19:43:00 36.56 Roxana Univ ersity of [place] [facility] Body height 2020-09-25 20:00:00 177.8 cm Universi ty [facility] [place] [facility] Body weight 2020-09-25 20:00:00 88.451 kg Universi ty [facility] [place] [facility] BMI 2020-09-25 20:00:00 27.98 kg/m2 Universi ty [facility] [place] [facility] Systolic blood 2020-09-06 18:32:00 138 mm[Hg] Univer sity of pressure [place] [facility] Diastolic blood 2020-09-06 18:32:00 77 mm[Hg] Unive rsity of pressure [place] [facility] Heart rate 2020-09-06 18:32:00 71 /min Universi ty [facility] [place] [facility] Respiratory rate 2020-09-06 18:32:00 18 /min Univ ersity of [place] [facility] Oxygen saturation in 2020-09-06 18:32:00 98 /min University of Arterial blood by [place] Medi miryam Pulse oximetry Branch Body temperature 2020-09-06 18:22:00 36.89 Roxana Univ ersity of [place] [facility] Body height 2020-09-04 15:30:00 177.8 cm Universi ty [facility] [place] [facility] Body weight 2020-09-04 15:30:00 88.451 kg Universi ty [facility] [place] [facility] BMI 2020-09-04 15:30:00 27.98 kg/m2 Universi ty [facility] Systolic blood 2020-09-06 18:32:00 138 mm[Hg] Univer sity of pressure [facility] Diastolic blood 2020-09-06 18:32:00 77 mm[Hg] Unive rsity of [facility] Heart rate 2020-09-06 18:32:00 71 /min Universi ty of [facility] Respiratory rate 2020-09-06 18:32:00 18 /min Univ [facility] of [facility] Oxygen saturation in 2020-09-06 18:32:00 98 /min [facility] Arterial blood by [facility] Pulse oximetry [place] Body temperature 2020-09-06 18:22:[address] [facility] er[facility] of [facility] Body height 2020-09-04 15:30:00 177.8 cm Universi ty [facility] Body weight 2020-09-04 15:30:00 88.451 kg Universi ty [facility] BMI 2020-09-04 15:30:00 27.98 kg/m2 Universi ty [facility] Respiratory rate 2020-09-06 18:16:00 17 /min Univ ersity of [facility] Respiratory rate 2020-09-06 18:16:00 17 /min Univ ersity of [facility] Systolic blood 2020-07-20 18:35:00 127 mm[Hg] Univer sity of pressure [facility] Diastolic blood 2020-07-20 18:35:00 75 mm[Hg] Unive rsity of pressure [facility] Heart rate 2020-07-20 18:32:00 79 /min Universi ty of [facility] Systolic blood 2020-07-20 18:35:00 127 mm[Hg] Univer sity of pressure [facility] Diastolic blood 2020-07-20 18:35:00 75 mm[Hg] Unive rsity of pressure [facility] Heart rate 2020-07-20 18:32:00 79 /min Universi ty [facility] Systolic blood 2022-03-29 16:14:00 163 mm[Hg] [facility] pressure Diastolic blood 2022-03-29 16:14:00 89 mm[Hg] [facility] pressure Heart rate 2022-03-29 16:14:00 72 /min [facility] Body height 2022-03-29 16:14:00 177.8 cm [facility] Body weight 2022-03-29 16:14:00 91.536 kg [facility] BMI 2022-03-29 16:14:00 28.96 kg/m2 [facility] BMI Calculated 2019-04-09 21:07:00 Jackie Vasques Weight 2019-04-09 21:07:00 [place] Taylor Height 2019-04-09 21:07:00 175.26 cm [facility] Respitory Rate 2019-04-09 21:07:00 Jackie Vasques Heart Rate 2019-04-09 21:07:00 [place] Bradfordann Systolic (mm Hg) 2019-04-09 21:07:00 Kelvin bradley [place] Diastolic (mm Hg) 2019-04-09 21:07:00 Mem mike [place] Procedures Procedure Date / Time Performing Source Performed Clinician PET BRAIN METABOLIC EVAL 2021-11-23 Amrita Randhawa [facility] 18:13:37 [place] POC GLUCOSE 2021-11-23 Amrita Randhawaist [facility] 16:33:00 [place] CONSENT/REFUSAL FOR DIAGNOSIS 2020-09-25 Doctor Unassigned, [facility] AND TREATMENT 17:48:31 [place] [facility] ASSIGNMENT OF BENEFITS 2020-09-25 Doctor Unapareshigned, [facility] 17:48:13 [place] [facility] PHACOEMULSIFICATION OF 2020-09-06 Callum Ansari [facility] CATARACT WITH INTRAOCULAR 17:43:00 Medica l Branch LENS IMPLANT ASSIGNMENT OF BENEFITS 2020-09-05 Doctor Unassigned, [facility] 17:09:22 [place] [facility] CONSENT/REFUSAL FOR DIAGNOSIS 2020-08-28 Doctor Unassigned, [facility] AND TREATMENT 22:16:21 [place] [facility] ASSIGNMENT OF BENEFITS 2020-08-28 Doctor Unassigned, [facility] 22:16:06 [place] [facility] NOTICE OF PRIVACY PRACTICES 2020-08-28 Doctor Unassigned, [facility] 22:15:53 [place] [facility] CONSENT/REFUSAL FOR DIAGNOSIS 2020-08-28 Doctor Unassigned, [facility] AND TREATMENT 22:15:40 [place] [facility] ASSIGNMENT OF BENEFITS 2020-08-28 Doctor Unassigned, [facility] 22:15:23 [place] [facility] PHYSICIAN ORDERS 2020-08-28 Doctor Unassigned, [place] [facility] [place] 06:01:00 [place] [facility] EXTERNAL PROVIDER RECORDS 2020-07-24 Doctor Unassigned, [facility] 05:01:00 [place] [facility] ASSIGNMENT OF BENEFITS 2020-07-20 Doctor Unassigned, [facility] 18:24:15 [place] [facility] REFERRAL- REQUEST/RESPONSE 2020-07-17 [facility] 05:[facility] [place] [facility] Plan of Care Planned Activity Planned Date Details Comments Source Future Scheduled 2022-06-12 HEPATITIS B VACCINES [facility] Test 05:02:36 (1 of 3 - 3-dose series) [code = HEPATITIS B VACCINES (1 of 3 - 3-dose series)] Future Scheduled 2022-06-12 Hepatitis C screening [facility] Test 05:02:36 (procedure) [code = 912327165] Future Scheduled 2022-06-12 COLONOSCOPY SCREENING [facility] Test 05:02:36 [code = COLONOSCOPY SCREENING] Future Scheduled 2022-06-12 SHINGLES VACCINES (1 [facility] Test 05:02:36 of 2) [code = SHINGLES VACCINES (1 of 2)] Future Scheduled 2022-06-12 65+ [facility]OC[facility]CCAL [facility] 05:02:36 VACCINE (1 - PCV) [code = 65+ PNEUMOCOCCAL VACCINE (1 - PCV)] Future Scheduled 2022-06-12 COVID-19 VACCINE (3 - [facility] Test 05:02:36 Booster for Moderna series) [code = COVID-19 VACCINE (3 - Booster for Moderna series)] Future Scheduled 2022-06-12 INFLUENZA VACCINE [facility] Test 05:02:36 [code = INFLUENZA VACCINE] Encounters Start End Encounter Admission Attending Care Care Encounter Source Date/Time Date/Time Type Type Clinicians Facility Department ID 2021-12-13 Outpatient ErikJUAN LUIS silva [id number] [facility] 10:06:02 Kwasi 05 [place] [facility] 2021-10-04 Outpatient JUAN LUIS Valencia [id number] [facility] 14:48:20 Kwasi 11 [place] [facility] 2021-08-18 Outpatient RADHA NICHOLE JAMILA [id number] Univers 09:02:11 CALLUM [facility] 2021-08-18 Outpatient Elder ANSARI [facility] OPU [id number] Univers 06:19:26 CALLUM meche [facility] 2020-11-13 Inpatient MANUEL GonzalesTO PAIN [id number] [facility] 10:30:00 Lee [id number] [place] [facility] 2020-10-16 Inpatient MANUEL DennisonTO RADI [id number] [facility] 14:30:00 Zeke [id number] [place] [facility] 2022-03-15 2022-06-05 Office Amrita Randhawa [id number] [facility] 09:00:00 20:02:38 Visit James Olguin [id number] [id number] Hospit [id number] l .8 2022-06-04 2022-06-04 Outpatient FOG_Wimberl AOSM AOSM [id number] [place] 00:00:00 00:00:00 Lashaun [id number] [facility] 2022-06-04 2022-06-04 Outpatient Wilma Armstrong AOSM AOSM [id number] 00:00:00 00:00:00 Elder [id number] 2022-06-03 2022-06-03 Outpatient FOG_Wimberl AOSM AOSM [id number] [place] 00:00:00 00:00:00 Lashaun [id number] [facility] 2022-05-31 2022-05-31 Outpatient FOG_Wimberl AOSM AOSM [id number] [place] 00:00:00 00:00:00 Lashaun [id number] [facility] 2022-03-29 2022-03-29 Office Sourav [id number] Methodi 11:20:00 11:24:59 Visit Amrita [id number] [place] [id number] Hospi ta .3.757321 l .8 2022-03-29 2022-03-29 Outpatient [facility] [id number] [address] 00:00:00 00:00:[address] 2022-03-29 2022-03-29 Travel 1.2.840.1 1.2.432.537 8331 001114 Methodi 00:00:00 00:00:[address] 3.430.2.7 0.2.7.3.698 Ho spita .3.647557 084.8 l .8 2022-03-26 2022-03-26 Outpatient FOG_Wimberl AOSM AOSM 605 7332-20 [place] 00:00:00 00:00:00 holland_Kamaljit_ 464388 Orth[facility] 2022-03-15 2022-03-15 Travel 1.2.840.1 1.2.632.310 0962 618771 Methodi 00:00:00 00:00:[address] 3.430.2.7 0.2.7.3.698 Ho spita .3.800105 084.8 l .8 2022-03-15 2022-03-15 Outpatient [facility] [id number] [address] 00:00:00 00:00:00 AMRITA [address] 2022-02-12 2022-02-12 [place], 1.2.840.1 [id number] 121 0724313 Methodi 00:00:00 00:00:[address] [place] 3.430.2.7 Hospi ta .3.033879 l .8 2021-12-13 2021-12-13 Outpatient FLORENCIA Valencia HCATO PAIN [id number] -20 [facility] 07:09:00 07:09:00 Kwasi [id number] [place] [facility] 2021-11-23 2021-11-23 [facility] Anne 1.2.840.1 [id number] 2100 293561 Methodi 09:57:33 23:59:00 Encounter Amrita 71999.1.[address] [place] 3.430.2.7 Hospi ta .3.430045 l .8 2021-11-23 2021-11-23 Travel 1.2.840.1 1.2.292.251 0685 489032 Methodi 00:00:00 00:00:[address] 3.430.2.7 0.2.7.3.698 Ho spita .3.296363 084.8 l .8 2021-11-23 2021-11-23 Outpatient [facility] [id number] [address] 00:00:00 00:00:[address]ITA [address] 2021-11-13 2021-11-13 Travel 1.2.840.1 1.2.945.014 5589 836111 Methodi 00:00:00 00:00:[address] 3.430.2.7 0.2.7.3.698 Ho spita .3.983289 084.8 l .8 2021-11-08 2021-11-08 Office Anne, 1.2.840.1 [id number] 63758 43686 Methodi 16:00:00 16:53:18 Visit Amrita 02670.1.[address] [place] 3.430.2.7 Hospi ta .3.268354 l .8 2021-11-08 2021-11-08 Travel 1.2.840.1 1.2.629.415 1680 353609 Methodi 00:00:00 00:00:[address] 3.430.2.7 0.2.7.3.698 Ho spita .3.607081 084.8 l .8 2021-11-08 2021-11-08 Outpatient [facility] [id number] [address] [place] 00:00:00 00:00:00 AMRITA [address] 2021-10-04 2021-10-04 Outpatient FLORENCIA Valencia HCATO PAIN [id number] -20 [facility] 10:54:00 10:54:00 Kwasi 333489 [facility] 2021-09-26 2021-09-26 Travel 1.2.840.1 1.2.263.314 0307 297807 Methodi 00:00:00 00:00:[address] 3.430.2.7 0.2.7.3.698 Ho spita .3.310069 084.8 l .8 2021-09-04 2021-09-04 Outpatient MANUEL DennisonTO RADI Y137 526-20 [facility] 10:23:00 10:23:00 Zeke [id number] [facility] 2021-09-04 2021-09-04 Outpatient MANUEL DennisonTO RADI Y000 [id number] [facility] 07:45:00 07:45:00 Zeke Vargas [facility] 2021-06-30 2021-06-30 Telephone JAIME Cool 1.2.508.095 8139 1352 Univers 00:00:00 00:00:00 Kori MUNOZ 350.1.13.10 i ty of [facility] 4.2.7.2.686 Mitesh as 439.1598492 [address] 2021-06-28 2021-06-28 Laboratory Only, Ang Db Test [facility] 1.2.8 40.114 [id number] Univers 16:25:51 16:35:51 Only Unknown, Attending Health [facility].1.13.10 [facility] 4.2.7.2.686 Mitesh as Bert?Blea 177.3515175 Sd dical [address] Medical Office Building 2021-06-28 2021-06-28 Outpatient R [facility] [id number] -20 Univers 16:20:00 16:20:00 384647 ity [facility] 2021-06-28 2021-06-28 Outpatient R UNKNOWN, [facility] [id number] 3228 Univers 16:20:00 16:20:00 ATTENDING ity [facility] 2021-03-27 2021-03-27 Outpatient EL Erik, HCATO PAIN [id number] -20 [facility] 07:55:00 07:55:00 Kwasi [id number] [facility] 2020-12-25 2020-12-25 Patient Rashaad [facility] 1.2.840.114 [id number] Univers 00:00:00 00:00:00 Outreach Monty PRIMARY 350.1.13.10 i ty of [place] [phone] Sd dical [address] 2020-12-25 2020-12-25 Patient Rashaad [facility] 1.2.840.114 [id number] 08 00:00:00 00:00:00 Outreach Monty PRIMARY 350.1.13.10 [place] [facility] 4.2.7.2.686 PAVILLION [id number] 388 2020-11-07 2020-11-07 Outpatient MANUEL JimenezTO PAIN [id number] -20 [facility] 10:00:00 10:00:00 Lee 455198 [facility] 2020-09-28 2020-09-28 Outpatient MANUEL GarciaTO RADI Y137 526-20 [facility] 14:30:00 14:30:00 Zeke 695644 [facility] 2020-09-27 2020-09-27 [facility] 1.2.783.899 4345 1645 [facility] 09:56:00 14:40:00 Encounter Callum Arthur 350.1.13.10 ity of [place] 4.2.7.2.686 [facility] Surgical [phone] [place] 440421 [place] 2020-09-27 2020-09-27 [facility] 1.2.804.063 8237 1645 09:56:00 14:40:00 Encounter Callum Arthur 350.1.13.10 [place] 4.2.7.2.686 Surgical 533.2511838 [place] [address] 2020-09-25 2020-09-25 Laboratory Only, Adc Test [facility] 1.2.840. 114 [id number] Univers 11:47:11 12:02:11 Only Callum Ansari 350.1.13.1 0 [place] 243.7951157 [address] 2020-09-25 2020-09-25 Laboratory Only, [facility] 1.2.840.114 8 [id number] 11:47:11 12:02:11 Only Test [place] 350.1.13.10 [place] 4.2.7.2.686 [place] 560.8706048 [facility] 2020-09-25 2020-09-25 Outpatient R [facility] [id number] -20 Univers 11:45:00 11:45:00 [facility] 2020-09-25 2020-09-25 Outpatient R [facility] [id number] 8548 Univers 11:45:00 11:45:00 CALLUM [facility] 2020-09-06 2020-09-06 [facility] 1.2.488.857 5262 5638 Univers 10:06:00 12:57:00 Encounter Callum Arthur 350.1.13.10 [place] [id number] Med ical Center [address] [place] [address] 2020-09-06 2020-09-06 [facility] 1.2.313.760 4224 5638 10:06:00 12:57:00 Encounter Callum Arthur 350.1.13.10 [place] 4.2.7.2.686 Surgical 373.2411133 [place] [address] 2020-09-06 2020-09-06 Anesthesia Bony Menendez [facility] 1.2.840.11 4 [id number] Univers 11:47:00 12:19:00 Zeke Small 350.1.13.10 ity [place] [id number] Med ical Center [address] [place] 2020-09-06 2020-09-06 Anesthesia Bony Menendez [facility] 1.2.840.11 4 [id number] 11:47:00 12:19:00 Zeke Small 350.1.13.10 [place] 4.2.7.2.686 Surgical 117.0050637 [place] [address] 2020-09-05 2020-09-05 Laboratory Only, Adc Test [facility] 1.2.840. 114 [id number] Univers 11:08:04 11:23:04 Only Callum Ansari 350.1.13.1 0 ity of [place].7.2.[place] 389.7218993 [address] 2020-09-05 2020-09-05 Laboratory Only, [facility] 1.2.840.114 7 [id number] 11:08:04 11:23:04 Only Test Sandhya 350.1.13.10 [place] 4.2.7.2.686 [place] 216.3985085 [facility] 2020-09-05 2020-09-05 Outpatient R [facility] [id number] -20 Univers 11:15:00 11:15:00 507802 ity of [facility] 2020-09-05 2020-09-05 [facility] [id number] 8701 Univers 11:15:00 11:15:00 CALLUM ity of [facility] 2020-09-05 2020-09-05 Orders Doctor SANDOVAL 1.2.840.114 [id number] 20 Univers 00:00:00 00:00:00 Only Unassigned, ALEXANDER 350.1.13.10 ity of [place] [facility] 4.2.7.2.686 Mitesh as [id number] [facility] [address] [place] 2020-09-05 2020-09-05 Orders Doctor SANDOVAL 1.2.840.114 105493 20 00:00:00 00:00:00 Only Unassigned, ALEXANDER 350.1.13.10 [place] [facility] 4.2.7.2.686 847.5775196 009 2020-08-28 2020-08-28 Insurance Solicitor Cally, [facility] Main [facility] 1.2.8 40.114 [id number] Univers 16:16:33 16:31:33 Visit Callum Ansari 350.1.13.1 0 it[place] 293.4597796 Sd dic[address] 2020-08-28 2020-08-28 Outpatient R [facility] [id number] -20 Univers 16:15:00 16:15:00 612671 ity of [facility] 2020-08-28 2020-08-28 [facility] [id number] 7131 Univers 16:15:00 16:15:00 CALLUM ity of [facility] 2020-08-11 2020-08-11 Telephone [facility] 1.2.840.114 [id number] 882203 Univers 00:00:00 00:00:00 Mel Hernandez 350.1.13.10 it y of Surgical 4.2.7.2.686 Mitesh as Specialti [phone] Me dical es 198 [facility] 2020-07-24 2020-07-24 Orders Doctor JAIME 1.2.840.114 [id number] 80 Univers 00:00:00 00:00:00 Only Unassigned, ALEXANDER 350.1.13.10 ity of [place] [facility] 4.2.7.2.686 Mitesh as [phone] [address] 2020-07-20 2020-07-20 [facility] 1.2.840.114 785 66053 Univers 13:45:21 23:59:00 Encounter Mel Hernandez 350.1.13.10 ity of Surgical 4.2.7.2.686 Mitesh as Specialti 064.7085925 Me dical es 809 [facility] 2020-07-20 2020-07-20 [facility] 1.2.840.114 785 57445 Univers 13:45:20 23:59:00 Encounter Mel Hernandez 350.1.13.10 ity of Surgical 4.2.7.2.686 Mitesh as Specialti 484.7418066 Sd dical es 809 [facility] 2020-07-20 2020-07-20 [facility] 41354 97111 Univers 15:15:00 15:15:00 MEL itmeche of [facility] 2020-07-20 2020-07-20 Office [facility] 1.2.923.568 7262 3129 Univers 13:25:25 14:24:07 Visit Mel Hernandez 350.1.13.10 it y of Surgical 4.2.7.2.686 Mitesh as Specialti 120.6912086 Me dical es 198 [facility] 2020-07-20 2020-07-20 Office [facility] 1.2.481.999 6623 3129 13:25:25 14:24:07 Visit Mel [facility] 350.1.13.10 Surgical 4.2.7.2.686 Specialti 043.3492466 es 198 Sandhya 2020-07-20 2020-07-20 Orders Doctor JAIME 1.2.840.114 [id number] Univers 00:00:00 00:00:00 Only Unassigned, ALEXANDER 350.1.13.10 ity of [place] [facility] 4.2.7.2.686 Mitesh as 459.6315311 [address] 2020-07-17 2020-07-17 Orders Doctor JAIME 1.2.840.114 [id number] Univers 00:00:00 00:00:00 Only Unassigned, ALEXANDER 350.1.13.10 ity of [place] [facility] 4.2.7.2.686 Mitesh as [id number] [address] 2019-04-09 2019-04-10 Outpatient nullFlavo MNA 47321 10333 Memoria 21:00:00 04:59:59 r Neurology 03 theresa Chacon [place] 2019-04-09 2019-04-10 Outpatient nullFlavo MNA 60781 11379 Memoria 21:00:00 04:59:59 r Neurology 03 theresa Chacon [place] 2019-04-09 2019-04-09 Outpatient MELCHOR ClemonsMISCHER MHMISCHER 825 [id number] 16:00:00 23:59:59 Jordan Clara Gerson 2019-04-09 2019-04-09 Outpatient MHIE MHIE [id number] 565 Memoria 16:00:00 16:00:00 03 theresa Taylor 2019-01-22 2019-01-22 Outpatient MHIE MHIE [id number] 565 Memoria 13:15:00 13:15:00 02 theresa Taylor 2019-01-22 2019-01-22 Outpatient MHIE MHIE [id number] 565 Memoria 13:15:00 13:15:00 02 theresa Taylor 2018-12-25 2018-12-25 Outpatient MHIE MHIE [id number] 565 Memoria 13:30:00 13:30:00 01 theresa Taylor 2018-12-25 2018-12-25 Outpatient MHIE MHIE [id number] 565 Memoria 13:30:00 13:30:00 01 theresa Taylor 2018-11-12 2018-11-14 Outside nullFlavo WIA [id number] 55 Memoria 17:43:00 05:59:59 Medical r Neurology 01 l Records Oswaldo Taylor 2018-11-12 2018-11-14 Outside nullFlavo MNA [id number] 55 Memoria 17:43:00 05:59:59 Medical r Neurology 01 l Records Oswaldo Taylor 2018-11-12 2018-11-13 Outpatient MHMISCHER MHMISCHER [id number] 11:43:00 23:59:59 01 Results Test Description Test Time Test Comments Results Result [facility] e Comments - XR FLUORO FOR 2021-12-13 SPINE INJ 10:02:00 [facility] : 1950 Sex: M Patient Name: GERSON APARICIO Unit No: [id number] EXAMS: CPT CODE: [id number] XR FLUORO FOR SPINE INJ 65997 LUMBAR EPIRADICULAR INJECTION REFERRAL PHYSICIAN: Dr. Garcia [...] Reported and signed by: KWASI VALENCIA MD [facility] NAME: GERSON APARICIO [address] [place] [address] PHYS: Kwasi Valencia [place], [place] [address] : 1950 AGE: 71 SEX: M LOC: Y.GREGORY PHONE #: [phone] EXAM DATE: 12/13/2021 STATUS: [facility] FAX #: [phone] RAD #: D/C DT PAGE 1 Signed Report (CONTINUED) Patient Name: GERSON APARICIO Unit No: [id number] EXAMS: CPT CODE: [id number] XR FLUORO FOR SPINE INJ 10206 (Continued) CC: Technologist: Ana M Jackson(R) Transcribed D/ (1002) [email or web address] [facility] NAME: GERSON APARICIO [address] [facility] PHYS: Kwasi Valencia [place], [place] [address] : 1950 AGE: 71 SEX: M LOC: BABAK PHONE #: [phone] EXAM DATE: 12/13/2021 STATUS: REG [facility] FAX #: [phone] RAD #: D/C DT PAGE 2 Signed Report Patient Name: GERSON APARICIO Unit No: [id number] EXAMS: CPT CODE: [id number] XR FLUORO FOR SPINE INJ 98844 (Continued) Orig Print D/T: S: 12/13/2021 (1005) [facility] [place] NAME: GERSON APARICIO [address] [facility] PHYS: BEAR ValenciaKwasi Tavarez [place], [place] [address] : 1950 AGE: 71 SEX: M LOC: BABAK PHONE #: [phone] EXAM DATE: 12/13/2021 STATUS: REG [facility] FAX #: [phone] RAD #: D/C DT PAGE 3 Signed Report POC glucose 2021-11-23 16:34:35 Test Item Value Reference Range Interpretation Comme [facility] POC glucose (test code = 102 mg/dL 65-99 H Ope rator Name: Luther Smith [id number]) ID: [id number] hartable: No Action Needed Lab Interpretation (test code = Abnormal 75500-5) [facility]- XR FLUORO FOR SPINE [id number] 14:44:00 [facility] : 1950 Sex: M Patient Name: GERSON APARICIO Unit No: [id number] EXAMS: CPT CODE: [id number] XR FLUORO FOR SPINE INJ 98611 LUMBAR EPIRADICULAR INJECTION REFERRAL PHYSICIAN: Dr. Garcia [...] bony protrusion lateral to the right L4/5 facetimpending the superior aspect of the foramen and preventing proper cephalad needle placement. Dye isseen to flow through the neuroforamen however. Preinjection VAS 7/10. Postinjection VAS 0/10. Steroid response pending follow-up. ESTIMATED BLOOD LOSS: Minimal ANESTHESIA: TIVA COMPLICATIONS: None DETAILS OF PROCEDURE: After obtaining stable vital signs, informed consent and IV access, with no contrai ndications, the patient was taken to the operating room and placed in a prone position with all extremities padded and appropriate monitors placed. The patient was sterilely prepped and draped over thelumbosacral spine. Using fluoroscopic visualization the insertion sites [...] Reported and signed by: KWASI VALENCIA MD [facility] [place] NAME: ALESSANDRAGERSON WHITE [address] [facility] PHYS: Kwasi Valencia [place], [place] [address] : 1950 AGE: 71 SEX:M LOC: Y.GREGORY PHONE #: [phone] EXAM DATE: 10/04/2021 STATUS: [facility] FAX #: [phone] RAD #: D/C DT PAGE 1 Signed Report (CONTINUED) Patient Name: GERSON APARICIO Unit No: [id number] EXAMS: CPT CODE: [id number] XR FLUORO FOR SPINE INJ 72595 (Continued) CC: Technologist: Ana M Jackson(R) Transcribed D/ (1444) WilberJMA2 [facility] [place] NAME: GERSON APARICIO [address] [facility] PHYS: Kwasi Valencia [place] [address] : 1950 AGE: 71 SEX: M LOC: NatalieGREGORY PHONE #: [phone] EXAM DATE: 10/04/2021 STATUS: [facility] FAX #: [phone] RAD #: D/C DT PAGE 2 Signed Report Patient Name: GERSON APARICIO Unit No: [id number] EXAMS: CPT CODE: [id number] XR FLUORO FOR SPINE TAR22310 (Continued) Orig Print D/T: S: 10/04/2021 (1448) [facility] [place] NAME: GERSON APARICIO [address] [facility] PHYS: Kwasi Valencia [place] [address] : 1950 AGE: 71 SEX: M LOC: NatalieGREGORY PHONE #: [phone] EXAM DATE: 10/04/2021 STATUS: [facility] FAX #: [phone] RAD #: D/C DT PAGE 3 Signed Report- MRI L-SPINE W WO [id number] 09:10:00 [facility] : 1950 Sex: M Patient Name: GERSON APARICIO Unit No: [id number] EXAMS: CPT CODE: [id number] MRI L- SPINE W WO CON 40042 TECHNIQUE: Multiplanar, multisequence MRI examination performed of [...] bilateral foraminal stenosis. L5/S1: A right asymmetric discbulge is present with a residual right paracentral disc protrusion measuring 2 to 3 mm. Right greater than left facet hypertrophy. Mild right foraminal stenosis is present. No significant left foraminal or central canal stenosis. IMPRESSION: Postoperative lumbar spine with multilevel spondylosis as described. at 0910 Reported andsigned by: Cem Henriquez M.D. [facility] NAME: GERSON APARICIO [address] [facility] PHYS: WIMDA.Juan Antonio - Zeke Garcia : 1950 AGE: 71 SEX: M [place], [place] [address] LOC: Y.RAD PHONE #: [phone] EXAM DATE: 09/04/2021 STATUS: DEP CLI FAX #: [phone] RAD #: D/C DT PAGE 1 Signed Report (CONTINUED) Patient Name: GERSON APARICIO Unit No: [id number] EXAMS: CPT CODE: [id number] MRI L- SPINE W WO CON 42278 (Continued) CC: Technologist: Clair Granados, RT(R) Transcribed D/ (0910) WilberRachel [facility] NAME: GERSON APARICIO [address] [facility] PHYS: WIMDA. - Zeke Garcia : 1950 AGE: 71 SEX: M [place] [address] LOC: Y.RAD PHONE #: [phone] EXAM DATE: 09/04/2021 STATUS:DEP CLI FAX #: [phone] RAD #: D/C DT PAGE 2 Signed Report Patient Name: GERSON APARICIOUnit No: [id number] EXAMS: CPT CODE: [id number] MRI L-SPINE W WO CON 17945 (Continued) Orig Print D/T: S: 09/05/2021 (0914) [facility] NAME: GERSON APARICIO [address] [place] [address] PHYS:WIMDA.Juan Antonio - Zeke Garcia : 1950 AGE: 71 SEX: M [place] [address] LOC: Y.RAD PHONE #: [phone] EXAM DATE: 09/04/2021 STATUS: DEP CLI FAX #: [phone] RAD #: D/C DT PAGE 3 Signed Report- XR FLUORO FOR SPINE INJ 2021-03-27 11:58:00 [facility] : 1950 Sex: M Patient Name: GERSON APARICIO Unit No: [id number] EXAMS: CPT CODE: [id number] XR FLUORO FOR SPINE INJ 46177 LUMBAR EPIRADICULAR INJECTION REFERRAL PHYSICIAN: Dr. Naranjo [...] 7/10. Postinjection VAS 0/10. Steroid response pending follow- up. ESTIMATED BLOOD LOSS: Minimal ANESTHESIA:TIVA COMPLICATIONS: None DETAILS OF PROCEDURE: After obtaining stable vital signs, informed consent and IV access, with no contraindications, the patient was taken to the operating room and placed in aprone position with all extremities padded and appropriate monitors placed. The patient was sterilely prepped and draped over the lumbosacral spine. Using fluoroscopic visualization the insertion siteswere marked for paravertebral approaches and using standard [...] Reported and signed by: KWASI VALENCIA MD [facility] [place] [facility] [place] NAME:GERSON APARICIO [address] [place] [address] PHYS: Kwasi Valencia [place] [address] :1950 AGE: 70 SEX: M LOC: BABAK PHONE #: [phone] EXAM DATE: 03/27/2021 STATUS: REG SDC FAX #: [phone] RAD #: D/C DT PAGE 1 Signed Report (CONTINUED) Patient Name: GERSON MICHELE Unit No: [id number] EXAMS: CPT CODE: [id number] XR FLUORO FOR SPINE INJ 38699 (Continued) CC: Technologist: Ana M Jackson(R) Transcribed D/ (5868) WilberJMA2 [facility] NAME: GERSON APARICIO [address] [place] [address] PHYS: Kwasi Valencia [place] [address] : 1950 AGE: 70 SEX: M LOC: BABAK PHONE #: [phone] EXAM DATE: 03/27/2021 STATUS: REG SDC FAX #: [phone] RAD #: D/C DT PAGE 2Signed Report Patient Name: GERSON APARICIO Unit No: [id number] EXAMS: CPT CODE: [id number] XR FLUORO FOR SPINE INJ 06256 (Continued) Orig Print D/T: S: 03/27/2021 (1202) [facility]: GERSON APARICIO Juan Antonio [facility] PHYS: Kwasi Valencia [place], [place] [address] : 1950 AGE: 70 SEX: M LOC: NatalieGREGORY PHONE #: [phone] EXAM DATE: 03/27/2021 STATUS: REG SDC FAX #: [phone] RAD #: D/C DT PAGE 3 Signed Report- XR FLUORO FOR SPINE [id number] 21:15:00 [facility] : 1950 Sex: M Patient Name: GERSON APARICIO Unit No: [id number] EXAMS: CPT CODE: [id number] XR FLUORO FOR SPINE INJ 10075 LUMBAR EPIRADICULAR INJECTION REFERRAL PHYSICIAN: Zeke Garcia [...] the discs. Provocation with injection was negative. Anestheticresponse was positive with the patient noting complete [...] and draped over the lumbosacral spine. Using fluoroscopicvisualization the insertion sites were marked for paravertebral [...] intrathecal uptake. The needles were removed and thepatient was taken to the PACU in good condition. Image: Image 1 Image: Image 2 at 2114 Reported and signed by: Lee Jimenez M.D. [facility] NAME: GERSON APARICIO [address] [facility] PHYS: Lee Bustillos MD [place] [address] : 1950 AGE: 70 SEX: M LOC: BABAK PHONE #: [phone] EXAM DATE: 11/13/2020 STATUS: [facility] FAX #: [phone] RAD #: D/C DT PAGE 1 Signed Report (CONTINUED) Patient Name: GERSON APARICIO Unit No: [id number] EXAMS: CPT CODE: [id number] XR FLUORO FOR SPINE INJ 71901 (Continued) CC: Technologist: Ana M Jackson(R) Transcribed D/ (2114) [facility] [place] NAME: GERSON APARICIO [address] [facility] PHYS: Lee Bustillos MD [place] [address] : 1950 AGE: 70 SEX:M LOC: BABAK PHONE #: [phone] EXAM DATE: 11/13/2020 STATUS: [facility] FAX #: [phone] RAD #: D/C DT PAGE 2 Signed Report Patient Name: GERSON APARICIO Unit No: [id number] EXAMS: CPT CODE: [id number] XR FLUORO FOR SPINE INJ 55463 (Continued) Orig Print D/T: S: 11/13/2020 (2117) [facility] [place] NAME: GERSON APARICIO [address] [facility] PHYS: Lee Bustillos MD [place] [address] : 1950 AGE: 70 SEX: M LOC: BABAK PHONE #: [phone] EXAM DATE: 11/13/2020 STATUS: [facility] FAX #: [phone] RAD #: D/C DT PAGE 3 Signed Report- MRI L-SPINE W WO [id number] 10:17:00 [facility] : 1950 Sex: M Patient Name: GERSON APARICIO Unit No: [id number] EXAMS: CPT CODE: [id number] MRI L-SPINE W [place] CON [id number] MRI OFTHE LUMBAR SPINE WITH AND WITHOUT CONTRAST DIAGNOSIS: 1. At L1- 2, no disc bulge or herniation. Mild central canal stenosis. Mild facet arthropathy. No foraminal stenosis. 2. At L2-3, moderate disc degeneration. There is 3 mm of retrolisthesis of L2 on L3. 2 mm broad-based disc bulge with associated annular tear. Mild central canal stenosis. Mild bilateral facet arthropathy. Mild to moderate bilateralforaminal stenosis. 3. At L3-4, mild to moderate disc degeneration. 2 mm broad-based disc bulge and small posterior central annular tear. Patient status post right hemilaminectomy. 3 mm right foraminaldisc protrusion. Moderate right foraminal stenosis. Mild left foraminal stenosis. 4. At L4-5, markeddisc degeneration. Patient status post right hemilaminotomy. Mild residual central canal stenosis. Mild to moderate facet arthropathy. Moderate to marked right foraminal and mild to moderate left forami nal stenosis. 5. At L5-S1, mild disc degeneration. [...] VIEW LUMBAR SPINE WITH FLEXION AND EXTENSION COMMENT:Marked degeneration of the L4-5 and L5-S1 disc. Moderate degeneration of the L2-L3 4 disc with anterior spondylosis. No abnormal motion is seen on flexion or extension. Pedicles and transverse processes are intact. Mild degeneration the SI joints. at 1017 Reported and signed by: Flip Bernard MD [facility] NAME: GERSON APARICIO [address] [facility] PHYS: WIMDA.Juan Antonio - Zeke Garcia Ritchie : 1950 AGE: 70 SEX: M [place], [place] LOC: Y.RAD PHONE #: [phone] EXAM DATE: 10/16/2020 STATUS: DEP CLI FAX #: [phone] RAD #: D/C DT PAGE 1 Signed Report (CONTINUED) Patient Name: GERSON APARICIO Unit No: [id number] EXAMS: CPT CODE: [id number] MRI L-SPINE W WO CON 66351 (Continued) CC: Technologist: EDWIN REYNA.MRI,CT Transcribed D/ (1017) tMODESTOGVG [facility] NAME: GERSON APARICIO [address] [facility] PHYS: WIMDA.Juan Antonio - Zeke Garcia : 1950 AGE: 70 SEX: M [place], [place] [address] LOC: Y.RAD PHONE #: [phone] EXAM DATE: 10/16/2020 STATUS: DEPCLI FAX #: [phone] RAD #: D/C DT PAGE 2 Signed Report Patient Name: GERSON APARICIO Unit No: [id number] EXAMS: CPT CODE: [id number] MRI L-SPINE W WO CON 28093 (Continued) Orig Print D/T: S: 10/17/2020 (1020) [facility] NAME: GERSON APARICIO [address] [facility] PHYS: WIADamon - BrodheadZeke blue Ritchie : 1950 AGE: 70 SEX: M [place], [place] [address] LOC: Y.RAD PHONE #: [phone] EXAM DATE: 10/16/2020 STATUS: DEP CLI FAX #: [phone] RAD #: D/C DT PAGE 3 SignedReport- XR L-SPINE 4+VIEWS 2020-10-17 10:17:00 [facility] : 1950 Sex: M Patient Name: GERSON APARICIO Unit No: [id number] EXAMS: CPT CODE: [id number] XR L-SPINE 4+VIEWS 33665 MRI OF THE LUMBAR SPINE WITH AND [...] axial T2 and sagittal STIR sequences are obtainedof the lumbar spine. The lumbar vertebrae are [...] Reported and signed by: Flip Bernard MD [facility] NAME: GERSON APARICIO [address] [place] [address] PHYS: WIMDA. - Zeke Garcia Ritchie : 1950 AGE: 70 SEX: M [place], [place] [address] LOC: Y.RAD PHONE #: [phone] EXAM DATE: 10/16/2020 STATUS: KENNETH CLI FAX #: [phone] RAD #: D/C DT PAGE 1 Signed Report (CONTINUED) Patient Name: GERSON APARICIO Unit No: [id number] EXAMS: CPT CODE: [id number] XR L-SPINE 4+VIEWS 98427 (Continued) CC: Technologist: RT. Jorge Luis(R) Transcribed D/ (1017) NiviaG [facility] NAME: GERSON APARICIO [address] [facility] PHYS: WIMDA. - Zeke Garcia : 1950 AGE: 70 SEX: M [place], [place] [address] LOC: Y.RAD PHONE #: [phone] EXAM DATE: 10/16/2020 STATUS: DEP CLI FAX #: [phone] RAD #: D/C DT PAGE 2 Signed Report Patient Name: GERSON APARICIO Unit No: [id number] EXAMS: CPT CODE: [id number] XR L-SPINE 4+VIEWS 28597 (Continued) Orig Print D/T: S: 10/17/2020 (1020) [facility] NAME: GERSON APARICIO [address] [facility] PHYS: WIMDA.01 - Zeke Garcia WarDOB: 1950 AGE: 70 SEX: M [place], [place] [address] LOC: Y.RAD PHONE #: [phone] EXAM DATE: 10/16/2020 STATUS: DEP CLI FAX #: [phone] RAD #: D/C DT PAGE 3 Signed ReportBLOOD UREA [id number] 15:25:00 Test Item Value Reference Range Interpretation Comments BLOOD UREA NITROGEN (test code = 10 mg/dL 7-18 N BUN) CREATININE W ESTIMATED [id number] 15:25:00 Test Item Value Reference Range Interpretation Comments GLOMERULAR FILTRATION 70.6 >60 Unit o f measure: RATE (test code = GFR) mL/mi n/1.73 [id number] Range:Healthy A dults >90 mL/min/1.73 m2 For Chronic Kid davy Disease: Stage II Mild Decrease i n GFR 60-90 Stage III Moderate Decrea se in GFR 30-59 Stage IV Severe Decrease in GFR 15-29 Stag e V Kidney Failure <15 CREATININE (test code = 1.04 mg/dL 0.55-1.30 N CREAT)
[2022-06-18] MEDS ORDERED: HYDROMORPHONE HCL 1 MG/ML INJ ONE ×2 (12:45→14:33)
[2022-06-18] MEDS ORDERED: ONDANSETRON 4 MG/2 ML VIAL ONE ×2 (12:45→17:35)
[2022-06-18 12:46] LABS: Absolute Lymphocytes (CBC) 1.8 K/uL (0.7-4.9); Hematocrit 42.2 % (39.6-49.0); Lymphocytes % 14.9 % (15.3-44.8); MCV 88.6 fL (80-100); MPV 8.1 fL (7.6-11.3); RBC Red Blood Cell Count 4.76 M/uL (4.33-5.43)
[2022-06-18] MEDS ORDERED: FAMOTIDINE 20 MG/2 ML VIAL IV ONE (12:46)
[2022-06-18 12:53] LABS: Protime INR 1.05
[2022-06-18 13:01] LABS: ALT/SGPT 27 U/L (12-78); AST/SGOT 12 U/L (15-37); Albumin 3.2 g/dL (3.4-5.0); Alkaline Phosphatase 50 U/L (45-117); BUN Blood Urea Nitrogen 13 mg/dL (7-18); Bicarbonate 26 mmol/L (21-32); Bilirubin Total 0.4 mg/dL (0.2-1.0); Glomerular Filtration Rate 82 ml/min (=/>90); Glucose Level 114 mg/dL (74-106); Lipase 102 U/L (73-393); Potassium 3.9 mmol/L (3.5-5.1); Protein, Total 7.1 g/dL (6.4-8.2); Sodium Level 140 mmol/L (136-145)
[2022-06-18 13:09] LABS: Bilirubin Direct < 0.1 mg/dL (0-0.2)
--- NOTE | 2022-06-18 13:12 | RAD REPORT ---
EXAM DESCRIPTION: RAD - Chest Single View - 06/18/2022 12:56 pm CLINICAL HISTORY: epigastric pain COMPARISON: Chest Pa And Lat (2 Views) dated 06/12/2022; Chest Pa And Lat (2 Views) dated 05/15/2018; Chest Pa And Lat (2 Views) dated 05/22/2017 FINDINGS: Lines: None. Lungs: Mild basilar opacities likely reflecting atelectasis. Pleural: No significant pleural effusions or pneumothorax. Cardiac: The heart size is within normal limits. Mediastinum: Within normal limits. Bones: No acute fractures. Other: None IMPRESSION: Likely mild atelectasis in the lung bases but otherwise no acute process identified.
--- NOTE | 2022-06-18 13:28 | RAD REPORT ---
EXAM DESCRIPTION: US - Abdomen Exam Limited - 06/18/2022 1:10 pm CLINICAL HISTORY: epigastric/RUQ pain COMPARISON: Abdomen Exam Limited dated 06/10/2022 FINDINGS: The gallbladder demonstrates mobile gallstones No pericholecystic fluid or gallbladder wal l thickening. The common bile duct is normal measuring 4 mm. The gallbladder is distended. The liver demonstrates no findings of intrahepatic biliary dilatation. IMPRESSION: Similar cholelithiasis and gallbladder distention which are nonspecific findings. No son ographic findings that would indicate cholecystitis, however.
--- NOTE | 2022-06-18 13:56 | EDPHYS ---
Physician Documentation [facility] Name: Gerson Hackett Age: 72 yrs Sex: Male : 1950 Arrival Date: 06/18/2022 Time: 12:15 Bed 27 Private MD: Miguel Martinez ED Physician Eric Avila HPI: 06/18 12:25 This 72 yrs old Male presents to ER via Ambulatory with complaints of Abdominal Pain. cp 12:25 The patient presents with abdominal pain in the epigastric area, in the right upper cp quadrant. 12:25 Onset: The symptoms/episode began/occurred this morning. The symptoms radiate to right cp back. Associated signs and symptoms: Pertinent positives: nausea and vomiting, Pertinent negatives: constipation, diarrhea, dysuria, fever, hematuria, testicular pain, vomiting blood. The symptoms are described as constant. 12:25 Severity of pain: in the emergency department the pain is unchanged despite home cp interventions. Patient reports having right side inguinal hernia repair surgery by DR Avila this past Friday with no complications. Historical: - Allergies: 12:26 No Known Allergies; ld1 - Home Meds: 12:26 Trazodone Oral [Active]; ld1 - PMHx: 12:26 PTSD; Anxiety; Depressive disorder; ld1 - PSHx: 12:26 Right hip replacement; Right knee sx x2; Hernia; ld1 - Immunization history:: Adult Immunizations up to date, Client reports receiving the 2nd dose of the Covid vaccine. - Social history:: Smoking status: Patient denies any tobacco usage or history of. Patient uses alcohol, on a daily basis. ROS: 12:30 Constitutional: Negative for body aches, chills, fever, poor PO intake. cp 12:30 Eyes: Negative for injury, pain, redness, and discharge. cp 12:30 ENT: Negative for drainage from ear(s), ear pain, sore throat, difficulty swallowing, difficulty handling secretions. 12:30 Cardiovascular: Negative for chest pain, edema, palpitations. 12:30 Respiratory: Negative for cough, shortness of breath, wheezing. 12:30 Abdomen/GI: Positive for abdominal pain, nausea and vomiting, of the epigastric area and right upper quadrant, Negative for diarrhea, constipation, hematemesis, black/tarry stool, rectal bleeding. 12:30 Back: Positive for radiated pain. 12:30 : Negative for urinary symptoms, testicular pain cp 12:30 Skin: Negative for cellulitis, rash. 12:30 Neuro: Negative for altered mental status, headache, syncope, weakness. 12:30 All other systems are negative. Exam: 12:35 Constitutional: The patient appears in no acute distress, alert, awake, cp non-diaphoretic, non-toxic, well developed, well nourished, in obvious pain, uncomfortable. 12:35 Head/Face: Normocephalic, atraumatic. cp 12:35 Eyes: Periorbital structures: appear normal, Conjunctiva: normal, no exudate, no cp injection, Sclera: no appreciated abnormality, Lids and lashes: appear normal, bilaterally. 12:35 ENT: External ear(s): are unremarkable, Nose: is normal, Mouth: Lips: moist, Oral mucosa: moist, Posterior pharynx: Airway: no evidence of obstruction, patent, swelling, is not appreciated, erythema, is not appreciated, exudate, is not appreciated. 12:35 Chest/axilla: Inspection: normal, Palpation: is normal, no crepitus, no tenderness. 12:35 Cardiovascular: Rate: normal, Rhythm: regular, Edema: is not appreciated, JVD: is not appreciated. 12:35 Respiratory: the patient does not display signs of respiratory distress, Respirations: normal, no use of accessory muscles, no retractions, labored breathing, is not present, Breath sounds: are clear throughout, no decreased breath sounds, no stridor, no wheezing. 12:35 Abdomen/GI: Inspection: distension, that is mild, in the abdomen diffusely, scar(s), are noted in the right inguinal area, Bowel sounds: active, all quadrants, Palpation: soft, in all quadrants, severe abdominal tenderness, in the epigastric area and right upper quadrant, rebound tenderness, is not appreciated, voluntary guarding, is elicited in the epigastric area and right upper quadrant. 12:35 Back: CVA tenderness, is absent. 12:35 Skin: cellulitis, is not appreciated, no rash present. 12:35 Neuro: Orientation: to person, place \T\ time. Mentation: is normal, Motor: moves all fours, strength is normal, Sensation: is normal. 13:25 ECG was reviewed by the Attending Physician. cp Vital Signs: 12:23 BP 165 / 73; Pulse 81; Resp 18; Temp 98.4(O); Pulse Ox 97% on R/A; Weight 90.72 kg; ld1 Height 5 ft. 10 in. (177.80 cm); Pain 9/10; 13:15 BP 146 / 71; Pulse 73; Resp 18; Pulse Ox 97% ; kb3 14:00 BP 137 / 71; Pulse 73; Resp 20; Pulse Ox 95% ; kb3 14:45 BP 116 / 52; Pulse 73; Resp 20; Pulse Ox 95% ; kb3 15:30 BP 125 / 94; Pulse 120; Resp 28; Pulse Ox 98% 2 lpm ; kb3 16:15 BP 136 / 66; Pulse 108; Resp 20; Pulse Ox 96% ; kb3 12:23 Body Mass Index 28.70 (90.72 kg, 177.80 cm) ld1 MDM: 12:17 Patient medically screened. cp 13:40 Physician consultation: Stefan Avila MD text sent discussing patient's condition and cp continued pain, will admit to hospitalist. 13:45 Data reviewed: vital signs, nurses notes, lab test result(s), EKG, radiologic studies, cp plain films, ultrasound. 13:45 Test interpretation: by ED physician or midlevel provider: ECG, plain radiologic cp studies. Counseling: I had a detailed discussion with the patient and/or guardian regarding: the historical points, exam findings, and any diagnostic results supporting the discharge/admit diagnosis, lab results, radiology results. Response to treatment: the patient's symptoms have mildly improved after treatment, patient continues to c/o pain, and as a result, I will admit patient. 06/18 12:23 Order name: Basic Metabolic Panel; Complete Time: 13:28 cp 06/18 13:28 Interpretation: Normal except: GLUC 114; GFR 82. cp 06/18 12:23 Order name: CBC with Diff; Complete Time: 13:04 cp 06/18 13:29 Interpretation: Normal except: WBC 11.80; NEUT A 8.9; LYM% 14.9; JILL% 75.4. cp 06/18 12:23 Order name: LFT's; Complete Time: 13:28 cp 06/18 13:29 Interpretation: Normal except: ALB 3.2; GLOB 3.9; A/G 0.8. cp 08 12:23 Order name: PT-INR; Complete Time: 13:04 cp 06/18 12:23 Order name: Lipase; Complete Time: 13:28 cp 06/18 14:08 Order name: SARS RAPID; Complete Time: 15:27 cp 06/18 15:27 Interpretation: Reviewed. cp 08 12:23 Order name: XRAY Chest (1 view); Complete Time: 13:28 cp 06/18 12:28 Order name: US Abdomen Limited; Complete Time: 13:41 cp 06/18 13:41 Interpretation: Report reviewed. cp 06/18 12:23 Order name: EKG; Complete Time: 12:25 cp 06/18 12:23 Order name: Cardiac monitoring; Complete Time: 13:19 cp 06/18 12:23 Order name: EKG - Nurse/Tech; Complete Time: 13:18 cp 06/18 12:23 Order name: IV Saline Lock; Complete Time: 12:28 cp 06/18 12:23 Order name: Labs collected and sent; Complete Time: 12:28 cp 06/18 12:23 Order name: O2 Per Protocol; Complete Time: 12:28 cp 06/18 12:23 Order name: O2 Sat Monitoring; Complete Time: 12:28 cp EC:25 Rate is 73 beats/min. Rhythm is regular. ND interval is normal. QRS interval is normal. cp QT interval is normal. T waves are Inverted in lead aVR. Interpreted by me. Reviewed by me. Administered Medications: 13:23 Drug: Dilaudid (HYDROmorphone) 1 mg Route: IVP; Site: right antecubital; kb3 14:33 Follow up: Response: No adverse reaction; Pain is decreased kb3 13:23 Drug: Zofran (Ondansetron) 4 mg Route: IVP; Site: right antecubital; kb3 14:33 Follow up: Response: No adverse reaction kb3 13:23 Drug: Pepcid (famotidine) 20 mg Route: IVP; Site: right antecubital; kb3 14:33 Follow up: Response: No adverse reaction kb3 14:26 Drug: Dilaudid (HYDROmorphone) 1 mg Route: IVP; Site: right antecubital; kb3 15:03 Follow up: Response: No adverse reaction; Pain is decreased kb3 14:27 Drug: Zosyn (piperacillin-tazobactam) 3.375 grams Route: IVPB; Infused Over: 60 mins; kb3 Site: right antecubital; 15:03 Follow up: Response: No adverse reaction; IV Status: Completed infusion; IV Intake: kb3 100ml 15:35 Drug: Ativan (LORazepam) 1 mg Route: IVP; Site: right antecubital; kb3 17:32 Follow up: Response: No adverse reaction kb3 20:07 Not Given (Order changed by admitting physician in [facility]): NS 0.9% 1000 ml IV at 75 kb3 ml/hr continuous Disposition: 16:35 Co-signature as Attending Physician, Eric Lynch discussed case with Dr nuha Avila and patient will need 10 days of Augmentin [address] Avila will write patient [place] 10/[address] mg for pain control. [address] Avila will plan on cholecystectomy in 2-4 weeks. Discussed this plan with ZEKE Wilson.. Disposition Summary: 06/18/22 13:55 Hospitalization Ordered Hospitalization Status: Inpatient Admission cp Provider: Jesús Lynch cp Condition: Stable cp Problem: new cp Symptoms: have improved cp Bed/Room Type: Standard cp Location: Telemetry/MedSurg (Inpatient)(06/18/22 19:25) Room Assignment: [facility](06/18/22 19:25) Diagnosis - Other cholelithiasis without obstruction cp - Upper abdominal pain, unspecified - intractable cp - Nausea with vomiting, unspecified cp Forms: - Medication Reconciliation Form cp - SBAR form cp Signatures: Dispatcher [employer] Yeny Peralta RN RN mw Page, Corey, PA PA cp Eric Avila DO DO ms3 Lupis Castillo RN RN ld1 Katey Yung kc6 Rabia Salvador, RN RN kb3 Corrections: (The following items were deleted from the chart) 13:29 13:04 Normal except: WBC 11.80. cp cp 15:47 13:55 Telemetry/MedSurg (Inpatient) cp kc6 15:47 13:55 cp kc6 16:39 16:35 Co-signature as Attending Physician, Eric Lynch discussed case with ms3 Dr Avila and patient will need 10 days of Augmentin [address] Avila will write patient [place] 10/325 mg for pain control. Discussed this plan with ZEKE Wilson.. ms3 19: 15:47 [facility] ER HOLD kc6 mw : 15:47 ERHOLD- kc6 mw 06/19 16:01 06/18 12:25 The patient presents with abdominal pain right lower quadrant, cp cp
--- NOTE | 2022-06-18 13:56 | ER ---
Nurse's Notes [facility] Name: Gerson Hackett Age: 72 yrs Sex: Male : 1950 Arrival Date: 06/18/2022 Time: 12:15 Bed 27 Private MD: Miguel Martinez Diagnosis: Other cholelithiasis without obstruction;Upper abdominal pain, unspecified-intractable;Nausea with vomiting, unspecified Presentation: 06/18 12:23 Chief complaint: Patient states: mid epigastric pain since this morning. Denies N/V. ld1 Coronavirus screen: At this time, the client does not indicate any symptoms associated with coronavirus-19. Ebola Screen: No symptoms or risks identified at this time. Initial Sepsis Screen: Does the patient meet any 2 criteria? No. Patient's initial sepsis screen is negative. Does the patient have a suspected source of infection? No. Patient's initial sepsis screen is negative. Risk Assessment: Do you want to hurt yourself or someone else? Patient reports no desire to harm self or others. Onset of symptoms was June 18, 2022. 12:23 Method Of Arrival: Ambulatory ld1 12:23 Acuity: RUBIA 3 ld1 Triage Assessment: 12:26 General: Appears in no apparent distress. uncomfortable, Behavior is calm, cooperative, ld1 appropriate for age. Pain: Complains of pain in abdomen Pain does not radiate. Pain currently is 9 out of 10 on a pain scale. Quality of pain is described as sharp, shooting, throbbing, Pain began 0300 this morning. EENT: No signs and/or symptoms were reported regarding the EENT system. Neuro: Level of Consciousness is awake, alert, obeys commands, Oriented to person, place, time, situation. Cardiovascular: Capillary refill < 3 seconds Patient's skin is warm and dry. Respiratory: Airway is patent Respiratory effort is even, unlabored. GI: Abdomen is round non-distended, Patient currently denies nausea, vomiting. : No signs and/or symptoms were reported regarding the genitourinary system. Derm: No signs and/or symptoms reported regarding the dermatologic system. Musculoskeletal: No signs and/or symptoms reported regarding the musculoskeletal system. Historical: - Allergies: 12:26 No Known Allergies; ld1 - Home Meds: 12:26 Trazodone Oral [Active]; ld1 - PMHx: 12:26 PTSD; Anxiety; Depressive disorder; ld1 - PSHx: 12:26 Right hip replacement; Right knee sx x2; Hernia; ld1 - Immunization history:: Adult Immunizations up to date, Client reports receiving the 2nd dose of the Covid vaccine. - Social history:: Smoking status: Patient denies any tobacco usage or history of. Patient uses alcohol, on a daily basis. Screenin:34 Abuse screen: Denies threats or abuse. Denies injuries from another. Nutritional kb3 screening: No deficits noted. Tuberculosis screening: No symptoms or risk factors identified. Fall Risk None identified. Assessment: 12:30 General: See triage note. kb3 12:30 GI: Bowel sounds present X 4 quads. Abdomen is tender to palpation Abd is rigid kb3 Guarding noted. 15:30 General: Called to room by pt, pt states "I'm freezing," rigors noted. Several warm kb3 blankets applied. Pt continues to shiver. ZEKE Mayfield notified and at bedside. Received order for ativan 1mg and administered. Pt's daughter remains at bedside. VSS. 17:00 General: See charting in [employer]. kb3 Vital Signs: 12:23 BP 165 / 73; Pulse 81; Resp 18; Temp 98.4(O); Pulse Ox 97% on R/A; Weight 90.72 kg; ld1 Height 5 ft. 10 in. (177.80 cm); Pain 9/10; 13:15 BP 146 / 71; Pulse 73; Resp 18; Pulse Ox 97% ; kb3 14:00 BP 137 / 71; Pulse 73; Resp 20; Pulse Ox 95% ; kb3 14:45 BP 116 / 52; Pulse 73; Resp 20; Pulse Ox 95% ; kb3 15:30 BP 125 / 94; Pulse 120; Resp 28; Pulse Ox 98% 2 lpm ; kb3 16:15 BP 136 / 66; Pulse 108; Resp 20; Pulse Ox 96% ; kb3 12:23 Body Mass Index 28.70 (90.72 kg, 177.80 cm) ld1 ED Course: 12:15 Patient arrived in ED. mr 12:15 Miguel Martinez MD is Private Physician. mr 12:16 Matthias Mayfield PA is PHCP. cp 12:16 Eric Avila DO is Attending Physician. cp 12:20 Rabia Salvador, RN is Primary Nurse. kb3 12:25 Inserted saline lock: 20 gauge in right antecubital area, using aseptic technique. kb3 Blood collected. 12:26 Triage completed. ld1 12:26 Arm band placed on right wrist. ld1 12:32 Basic Metabolic Panel Sent. kb3 12:32 CBC with Diff Sent. kb3 12:32 LFT's Sent. kb3 12:32 PT-INR Sent. kb3 12:58 XRAY Chest (1 view) In Process Unspecified. EDMS 13:12 US Abdomen Limited In Process Unspecified. EDMS 13:52 Jesús Lynch MD is Hospitalizing Provider. cp 14:34 Patient has correct armband on for positive identification. Bed in low position. Call kb3 light in reach. Side rails up X 1. Warm blanket given. 14:34 No provider procedures requiring assistance completed. kb3 17:00 Patient admitted, IV remains in place. kb3 Administered Medications: 13:23 Drug: Dilaudid (HYDROmorphone) 1 mg Route: IVP; Site: right antecubital; kb3 14:33 Follow up: Response: No adverse reaction; Pain is decreased kb3 13:23 Drug: Zofran (Ondansetron) 4 mg Route: IVP; Site: right antecubital; kb3 14:33 Follow up: Response: No adverse reaction kb3 13:23 Drug: Pepcid (famotidine) 20 mg Route: IVP; Site: right antecubital; kb3 14:33 Follow up: Response: No adverse reaction kb3 14:26 Drug: Dilaudid (HYDROmorphone) 1 mg Route: IVP; Site: right antecubital; kb3 15:03 Follow up: Response: No adverse reaction; Pain is decreased kb3 14:27 Drug: Zosyn (piperacillin-tazobactam) 3.375 grams Route: IVPB; Infused Over: 60 mins; kb3 Site: right antecubital; 15:03 Follow up: Response: No adverse reaction; IV Status: Completed infusion; IV Intake: kb3 100ml 15:35 Drug: Ativan (LORazepam) 1 mg Route: IVP; Site: right antecubital; kb3 17:32 Follow up: Response: No adverse reaction kb3 20:07 Not Given (Order changed by admitting physician in [facility]): NS 0.9% 1000 ml IV at 75 kb3 ml/hr continuous Medication: 14:34 VIS not applicable for this client. kb3 Intake: 15:03 IV: 100ml; Total: 100ml. kb3 Outcome: 13:55 Decision to Hospitalize by Provider. cp 20:02 Admitted to Med/surg accompanied by tech, via stretcher, Report called to Lili GREGG kb3 20:02 Condition: stable 20:02 Instructed on the need for admit. 20:27 Patient left the ED. kb3 Signatures: Dispatcher [employer] EDWV BruceBell mr Matthias Mayfield, ZEKE PA Lupis Williamson, RN RN ld1 Rabia Salvador, RN RN kb3 Corrections: (The following items were deleted from the chart) 17:37 12:30 Patient admitted, IV remains in place. kb3 kb3
[2022-06-18] MEDS ORDERED: PIPERACIL/TAZO 3.375 GM VIAL IV ONE ×3 (14:33→23:56)
[2022-06-18] MEDS ORDERED: NA CHLORIDE 0.9% 100 ML ONE ×2 (14:33→18:26)
[2022-06-18] MEDS ORDERED: ACETAMINOPHEN 500 MG TAB PO PRN (14:58)
[2022-06-18] MEDS ORDERED: ONDANSETRON 4 MG/2 ML VIAL IV PRN (14:58)
--- NOTE | 2022-06-18 15:08 | P.HP ---
Certification for Inpatient Patient admitted to: Observation With expected LOS: <2 Midnights Patient will require the following post-hospital care: None Practitioner: I am a practitioner with admitting privileges, knowledge of patient current condition, hospital course, and medical plan of care. Services: Services provided to patient in accordance with Admission requirements found in Title 42 Section 412.3 of the Code of Federal Regulations <PiercedianeDmitriyjonnathan Barclay - Last Filed: 06/18/22 21:55> Patient History Date of Service: 06/18/22 Reason for admission: Abdominal pain History of Present Illness: Patient is patient is a 72-year-old male with a past medical history significant for PTSD, anxiety disorder, depression who presents with complaint of abdominal pain. Patient had an incarcerated right inguinal hernia repair on 06/14/2022. Patient reported that this morning patient started having right lower quadrant p ain which became worse over time. Patient reported that he called his surgeon and was instructed to take pain medication. Patient reported that he continued having pain that was not relieved by his existing pain medication. Patient rated pain as 10/10 and described pain sharp in quality. Patient reported associated signs and symptoms of generalized malaise, night sweats, chills and dizziness. Patient denies any other signs or symptoms. Symptoms are aggravated or relieved by nothing. Patient decided to present to the hospital due to worsening symptoms. Of note, spouse reported that when he came into the ER room she noted that patient was shaking terribly and was pale looking with bluish lips. - Past Medical/Surgical History -: PTSD -: Anxiety Disorder -: Depression -: Right Inguinal hernia repair - Family History Family History: Reviewed- Non-Contributory - Social History Smoking Status: Never smoker Alcohol use: Yes CD- Drugs: No Caffeine use: Yes Place of Residence: Home <Isauro Saini - Last Filed: 06/18/22 21:55> Date of Service: 06/19/22 <Jesús Lynch - Last Filed: 06/19/22 00:13> Allergies felisha Allergy (Verified 06/12/22 10:19) Anaphylaxis Home Medications: Bupropion HCl [Wellbutrin Xl] 150 mg PO TID 06/12/22 Dicyclomine [Bentyl] 20 mg PO Q6HR PRN 06/12/22 Memantine HCl 5 mg PO BEDTIME 06/12/22 Ondansetron [Zofran] 4 mg PO Q6H PRN 06/12/22 Ropinirole HCl 1 mg PO BEDTIME 06/12/22 Sertraline [Zoloft] 100 mg PO DAILY 06/12/22 Trazodone [Desyrel] 100 mg PO BEDTIME 06/12/22 Review of Systems General: Chills, Sweats, Malaise Eyes: Unremarkable ENT: Unremarkable Respiratory: Unremarkable Cardiovascular: Unremarkable Gastrointestinal: Abdominal Pain Musculoskeletal: Unremarkable Integumentary: Unremarkable Neurological: Other (Dizziness ) <Isauro Saini - Last Filed: 06/18/22 21:55> Physical Examination - Physical Exam General: Alert, Oriented x3, Cooperative HEENT: Atraumatic, Normocephalic, PERRLA Neck: Supple, 2+ carotid pulse no bruit, JVD not distended Respiratory: Clear to auscultation bilaterally, Normal air movement Cardiovascular: Normal pulses, Regular rate/rhythm, Normal S1 S2 Capillary refill: <2 Seconds Gastrointestinal: Normal bowel sounds, Distended, Tenderness Musculoskeletal: No clubbing, No contractures, No erythema Integumentary: Other (Right abdominal surgical incision ) - Studies Laboratory Data (last 24 hrs) 06/18/22 12:30: PT 11.6, INR 1.05 06/18/22 12:30: WBC 11.80 H D, Hgb 13.8, Hct 42.2, Plt Count 238 06/18/22 12:30: Sodium 140, Potassium 3.9, BUN 13, Creatinine 0.98, Glucose 114 H, Total Bilirubin 0.4, AST 12 L, ALT 27, Alkaline Phosphatase 50, Lipase 102 <Isauro Saini - Last Filed: 06/18/22 21:55> - Studies Laboratory Data (last 24 hrs) 06/18/22 12:30: PT 11.6, INR 1.05 06/18/22 12:30: WBC 11.80 H D, Hgb 13.8, Hct 42.2, Plt Count 238 06/18/22 12:30: Sodium 140, Potassium 3.9, BUN 13, Creatinine 0.98, Glucose 114 H, Total Bilirubin 0.4, AST 12 L, ALT 27, Alkaline Phosphatase 50, Lipase 102 <Jesús Lynch - Last Filed: 06/19/22 00:13> Assessment and Plan - Plan --Abdominal pain. CT abdomen indicates cholelithiasis and gallbladder distention which are nonspecific findings. Surgeon consulted. HIDA scan pending. Continue antibiotics. We will await further recommendation from surgeon. --Acute pain. We will manage pain with current pain medication regimen. --Mild leukocytosis. Blood cultures pending. Continue antibiotics. --CKD 2. Stable. We will continue to monitor renal functions. --Anxiety disorder\PTSD\Depression. Continue home medications when appropriate. --Elevated blood pressure. We will manage blood pressure with labetalol as needed. --DVT prophylaxis with Scds Discharge Plan: Home Plan to discharge in: 48 Hours - Advance Directives Does patient have a Living Will: Yes Does patient have a Durable POA for Healthcare: No - Code Status/Comfort Care Code Status Assessed: Yes Code Status: Full Code Physician Review: Patient Assessed, Agree with Above Assessment and Plan Critical Care: No <Isauro Saini - Last Filed: 06/18/22 21:55> Physician Review: Patient Assessed, Agree with Above Assessment and Plan <Jesús Lynch - Last Filed: 06/19/22 00:13>
[2022-06-18 15:14] LABS: SARS-CoV-2 Antigen Rapid Res Negative (Negative)
[2022-06-18] MEDS ORDERED: LORazepam 2 MG/ML VIAL ONE (15:43)
[2022-06-18] MEDS: MORPHINE 4 MG/ML SYR IV PRN ×2 (17:30→19:51)
[2022-06-18] MEDS: Ringers Lactate 1,000 ML IV SCH (17:30)
[2022-06-18] MEDS ORDERED: Ringers Lactate 1,000 ML IV ONE (17:35)
[2022-06-18] MEDS ORDERED: MORPHINE 4 MG/ML SYR ONE ×2 (17:35→19:57)
[2022-06-18] MEDS: PIPER TAZO 3.375 GM in NA CHLORIDE 0.9% 100 ML IV SCH (18:27)
[2022-06-18] MEDS ORDERED: LABETALOL 20 MG/4ML SYRINGE IV PRN (21:50)
[2022-06-19] MEDS: PIPER TAZO 3.375 GM in NA CHLORIDE 0.9% 100 ML IV SCH ×3 (00:35→17:34)
[2022-06-19 03:59] LABS: Absolute Lymphocytes (CBC) 0.7 K/uL (0.7-4.9); Hematocrit 37.5 % (39.6-49.0); Lymphocytes % 10.8 % (15.3-44.8); MCV 89.1 fL (80-100); MPV 7.8 fL (7.6-11.3)
[2022-06-19 04:13] LABS: Albumin 2.8 g/dL (3.4-5.0); Bilirubin Total 0.6 mg/dL (0.2-1.0); Potassium 4.3 mmol/L (3.5-5.1); Protein, Total 6.4 g/dL (6.4-8.2)
[2022-06-19 04:56] LABS: Specific Gravity 1.022 (1.005-1.030); Urine Bilirubin NEGATIVE (Negative); Urine Blood Negative (Negative); Urine Clarity Extremely Turbid (Clear); Urine Color Orange (Yellow); Urine Glucose NEGATIVE (Negative); Urine Protein NEGATIVE (Negative); Urine Urobilinogen Normal (Normal); Urine pH 5.5 (5.0-7.0)
[2022-06-19 05:20] LABS: Phosphorus 3.3 mg/dL (2.5-4.9)
[2022-06-19] MEDS: Ringers Lactate 1,000 ML IV SCH ×2 (06:06→14:05)
--- NOTE | 2022-06-19 09:35 | RAD REPORT ---
EXAM DESCRIPTION: NM - Hepatobiliary System Imagin - 06/19/2022 9:24 am CLINICAL HISTORY: Suspected acute cholecystitis COMPARISON: Abdomen Exam Limited dated 06/18/2022 TECHNIQUE: The patient was administered 6.5 mCi Tc99m Mebrofenin. Imaging of the right upper quadran t was performed initially for up to 60 minutes. FINDINGS: Normal hepatic uptake and excretion with appro delayed imaging. Priate clearance of backgr ound blood pool activity. Normal visualization of biliary and small bowel activity. The gallbladder is nonvisualized despite 2 are delayed imaging IMPRESSION: Nonvisualized gallbladder. This can be due to cholecystitis. Other possibilities would i nclude recent meal or prolonged fasting.
[2022-06-19] MEDS ORDERED: BUPIVACAINE 0.25% PF 30 ML VIAL ONE (10:41)
[2022-06-19] MEDS ORDERED: FENTANYL CITR 100 MCG/2 ML ONE ×3 (11:06→12:36)
[2022-06-19] MEDS ORDERED: MIDAZOLAM HCL 2 MG/2 ML INJ ONE (11:06)
[2022-06-19] MEDS ORDERED: ROCURONIUM 50 MG/5 ML VIAL IV ONE ×2 (11:13→12:36)
[2022-06-19] MEDS ORDERED: LIDOCAINE 1% MPF 5 ML VIAL ONE (11:13)
[2022-06-19] MEDS ORDERED: propofoL 200 MG/20 ML VIAL IV ONE (11:13)
[2022-06-19] MEDS ORDERED: dexAMETHasone 10 MG/ML VIAL ONE (12:25)
[2022-06-19] MEDS ORDERED: ONDANSETRON 4 MG/2 ML VIAL ONE (12:26)
[2022-06-19] MEDS ORDERED: KETOROLAC 30 MG/ML INJ ONE (12:26)
[2022-06-19] MEDS ORDERED: EPHEDRINE SULF 50 MG/ML VIAL ONE (12:27)
[2022-06-19] MEDS ORDERED: NS 0.9% VIAL 10 ML ONE (12:27)
[2022-06-19] MEDS ORDERED: NEOSTIGMINE 1 MG/ML -10 ML VIAL ONE (13:02)
[2022-06-19] MEDS ORDERED: GLYCOPYRROLATE 0.2 MG/ML SYR ONE (13:02)
--- NOTE | 2022-06-19 13:02 | P.OP ---
Preoperative diagnosis: Chronic Cholecystitis with Cholelithiasis Postoperative diagnosis: Chronic Cholecystitis with Cholelithiasis Primary procedure: Laparoscopic Cholecystectomy with ICG Cholangiography Anesthesia: GETA + Local Estimated blood loss: <10cc Specimen: Gallbladder Findings: Chronic Cholecystitis with Cholelithiasis, severe adhesions Complications: None Transferred to: Recovery Room Condition: Good
[2022-06-19] MEDS ORDERED: Ringers Lactate 1,000 ML IV ONE (13:11)
[2022-06-19] MEDS ORDERED: MORPHINE 2 MG/ML SYR IV PRN (13:21)
[2022-06-19] MEDS: HYDROMORPHONE HCL 1 MG/ML INJ ONE ×2 (13:33→13:40)
--- NOTE | 2022-06-19 14:49 | OP ---
Date of Procedure: 06/19/2022 Surgeon: Stefan Avila MD, Preoperative Diagnosis: Chronic cholecystitis with cholelithiasis. Postoperative Diagnosis: Chronic cholecystitis with cholelithiasis. Procedure: Laparoscopic cholecystectomy with ICG that is indocyanine green cholangiography. Anesthesia: General endotracheal plus local with 0.25% Marcaine. Estimated Blood Loss: Less than 10 mL. Specimen: Gallbladder. Findings: 1.Chronic cholecystitis with cholelithiasis. 2.Severe intraabdominal adhesions from omentum to anterior surface of the gallbladder. 3.Significant inflammatory rind to the gallbladder with thickened inflammatory changes to the entire gallbladder. Complications: None. Disposition: The patient was transferred to the recovery room in good condition. Procedure In Detail: After informed consent was obtained, the patient was brought to the operating r oom, prepped and draped in the usual sterile fashion after adequate anesthesia was achieved. Supraum bilical area was anesthetized with 0.25% Marcaine, sharply incised. A 5 mm 0-degree optical trocar w as introduced into the abdomen without evidence of complication. Insufflation was obtained to 15 mmH g at this time. There was no injury to vital structures upon entry into the abdomen. At this point, 3 additional trocars were placed, 1 in the epigastrium, 2 in the right upper quadrant. All these si milarly anesthetized and sharply incised. The 5 mm trocars were placed under direct visualization wi thout evidence of complication. At this point, the gallbladder was unable to be grasped or visualize d and as such I dissected the omentum off the anterior surface of the gallbladder, which was firmly a dherent. A combination of blunt and electrocautery dissection was required to remove the omentum fro m the anterior surface of the gallbladder, which was completely encasing the gallbladder making it co mpletely nonvisualized upon entry into the abdomen. After the gallbladder was adequately exposed, I attempted to grasp the gallbladder at the fundus, which was unable to be grasped at that time due to significant distention and tense gallbladder. At this point, I then inserted a needle into the fundu s of the gallbladder and hydrops appearing fluid emanated from the gallbladder with some decompressio n of the gallbladder. The gallbladder was quite thick and inflamed with significant thickened inflam matory rind of the entire gallbladder at this point. The gallbladder fluid/liquified contents were r emoved at this point due to a decompression needle and at this point, I then grasped the gallbladder, placed toward the patient's right shoulder and dissected it from the fundus down to the Remberto lizz ch of the gallbladder to skeletonize 2 structures after extensive slow meticulous dissection using co mbination of blunt dissection with electrocautery. At this point, 2 structures were visualized into the gallbladder. ICG cholangiography confirmed that these 2 structures were both identified as the c ystic duct and cystic artery. Critical view of safety obtained at this point, skeletonized these 2 s tructures and allowing clips to be anatomically placed double armed on the proximal side and single a rmed on the distal side of both cystic duct and cystic artery. At this point, the structures were li gated using Endo Fredo. The gallbladder was removed from the hepatic fossa without significant diff iculty. The gallbladder was quite friable and there was some minimal spillage of bile throughout the procedure. The gallbladder was then placed in EndoCatch and removed from the umbilical trocar and s ent off for pathological examination. I then fulgurated the bed of the gallbladder. There were a fe w spots that required additional fulguration, which were easily controlled with electrocautery at thi s point on spray mode with good hemostasis at this point. The area of the right upper quadrant was c ompletely irrigated and suctioned out until completely clear. No stone burden was left behind. At t his point, all bilious liquid was removed as well and irrigated copiously. At this point, I then ins pected and clips found to be in good anatomic position at the end of the procedure. The gallbladder was sent off for pathologic examination as stated earlier. I then returned the patient in neutral po sition and closed the umbilical trocar site using a Joe-Nidia suture passer with 0 Vicryl in in terrupted fashion with good approximation of tissues. The abdomen was completely desufflated under d irect visualization without evidence of complication. The remaining trocars were removed. All skin incisions were copiously irrigated and closed with 4-0 Monocryl in running fashion. Dermabond placed over top. The patient tolerated the procedure well without evidence of complication and transferred to PACU in good condition. All counts were correct at the end of the case. TONI/SHANNANL Voice ID: [id number] Report ID: [id number]
[2022-06-19] MEDS: HYDROCODONE/APAP 5/325 MG TAB PO PRN ×2 (15:39→20:19)
[2022-06-19 18:44] VITALS: BMI 28.7
--- NOTE | 2022-06-19 19:59 | P.PN ---
Subjective Date of Service: 06/19/22 Chief Complaint: Abdominal pain Subjective: No new changes No acute events overnight. He reports that his abdominal pain is slightly worse this morning as his pain medication has been on hold for the HIDA scan. Review of Systems 10-point ROS is otherwise unremarkable Gastrointestinal: Abdominal Pain (RUQ) Physical Examination - Vital Signs Temperature: 97.4 F Blood Pressure: 131/60 Pulse: 73 Respirations: 17 Pulse Ox (%): 93 - Physical Exam General: Alert, In no apparent distress, Oriented x3 HEENT: Atraumatic, PERRLA, Mucous membr. moist/pink, EOMI, Sclerae nonicteric Neck: Supple, JVD not distended Respiratory: Clear to auscultation bilaterally, Normal air movement Cardiovascular: No edema, Regular rate/rhythm, Normal S1 S2, No gallops, No rubs, No murmurs Gastrointestinal: Hypoactive, Non-distended, No rebound, No guarding, Tenderness (RUQ) Musculoskeletal: No clubbing Integumentary: No rashes Neurological: Normal speech, Cranial nerves 3-12 intact, Normal affect Assessment And Plan - Plan # Symptomatic Cholelithiasis with possible Acute Cholecystitis # S/P Recent Right Inguinal Incarcerated Hernia Repair - General Surgery consulted and spoke with Dr. Avila - recommendations appreciated - RUQ ultrasound = "similar cholelithiasis and gallbladder distention which are nonspecific findings. No sonographic findings that would indicate cholecystitis, however." - Plan for HIDA scan today and possible cholecystectomy if positive - Continue Piperacillin-Tazobactam 3.375 g IV q6hr - Lactated Ringers' at 100 mL/hr - Continue pain control # Anxiety # Depression # PTSD - Continue home medications Jesús Lynch M.D.
[2022-06-19] MEDS ORDERED: DICYCLOMINE HCL 10 MG CAP PO PRN (21:59)
[2022-06-20] MEDS: PIPER TAZO 3.375 GM in NA CHLORIDE 0.9% 100 ML IV SCH (01:16)
[2022-06-20] MEDS: Ringers Lactate 1,000 ML IV SCH (05:51)
[2022-06-20] MEDS: HYDROCODONE/APAP 5/325 MG TAB PO PRN (05:53)
[2022-06-20 06:06] LABS: Absolute Lymphocytes (CBC) 0.7 K/uL (0.7-4.9); Hematocrit 36.3 % (39.6-49.0); Lymphocytes % 8.8 % (15.3-44.8); MCV 88.9 fL (80-100); MPV 8.1 fL (7.6-11.3); RBC Red Blood Cell Count 4.08 M/uL (4.33-5.43)
[2022-06-20 06:26] LABS: Albumin 2.7 g/dL (3.4-5.0); Bilirubin Total 0.4 mg/dL (0.2-1.0); Potassium 4.2 mmol/L (3.5-5.1); Protein, Total 6.5 g/dL (6.4-8.2)
--- NOTE | 2022-06-20 07:37 | P.DS ---
Admission Date: 06/19/22 Discharge Date: 06/20/22 Disposition: ROUTINE DISCHARGE Discharge Condition: GOOD Reason for Admission: Abdominal pain Consultations: 1. General Surgery Procedures: - 06/19/2022: Laparoscopic Cholecystectomy with Indocyanine Green Cholangiography Hospital Course: DIAGNOSES: # Symptomatic Cholelithiasis with possible Acute Cholecystitis s/p Laparoscopic Cholecystectomy (06/19/2022) # S/P Recent Right Inguinal Incarcerated Hernia Repair # Anxiety # Depression # PTSD HOSPITAL COURSE: Mr. Gerson Hackett is a pleasant 72-year-old male with a past medical history significant for anxiety, depression, PTSD, and a recent right inguinal incarcerated hernia repair who was admitted to the [facility] on 06/19/2022 for abdominal pain. He was admitted to the Medicine service for further evaluation. Initial evaluation with a right upper quadrant abdominal ultrasound revealed, "similar cholelithiasis and gallbladder distention which are nonspecific findings. No sonographic findings that would indicate cholecystitis, however." A HIDA scan was ordered, and revealed, "nonvisualized gallbladder. This can be due to cholecystitis. Other possibilities would include recent meal or prolonged fasting." General Surgery was consulted and he was evaluated by Dr. Avila. On 06/19/2022, he underwent a successful laparoscopic cholecystectomy without any apparent complications. He was observed overnight and did well. He was seen by Dr. Avila this morning and cleared for discharge with a follow-up appointment in 1-2 weeks. On 06/20/2022, he was seen on morning rounds and deemed medically stable for discharge. He was discharged with instructions to schedule follow-up appointments with his PCP (Dr. Martinez) in 3-5 days and with General Surgery (Dr. Avila) in 1-2 weeks. He and his family members were given the opportunity to ask questions and reported no further questions. Furthermore, all questions were answered to the best of my ability. Today, I personally spent 20 minutes on his case, of which greater than 50% of the time was spent in patient education, counseling, and coordination of care as described above. - Physical Exam General: Alert, In no apparent distress, Oriented x3 HEENT: Atraumatic, PERRLA, Mucous membr. moist/pink, EOMI, Sclerae nonicteric Neck: Supple, JVD not distended Respiratory: Clear to auscultation bilaterally, Normal air movement Cardiovascular: No edema, Regular rate/rhythm, Normal S1 S2, No gallops, No rubs, No murmurs Gastrointestinal: Hypoactive, Non-distended, No rebound, No guarding, Minimal tenderness (RUQ) Musculoskeletal: No clubbing Integumentary: No rashes Neurological: Normal speech, Cranial nerves 3-12 intact, Normal affect Vital Signs/Physical Exam: Temp Pulse Resp BP Pulse Ox 96.7 F L 66 16 122/79 97 06/20/22 04:00 06/20/22 04:00 06/20/22 05:53 06/20/22 04:00 06/20/22 05:53 Laboratory Data at Discharge: WBC 8.00 K/uL (4.3-10.9) D 06/20/22 05:33 Hgb 12.3 g/dL (13.6-17.9) L 06/20/22 05:33 Hct 36.3 % (39.6-49.0) L 06/20/22 05:33 Plt Count 225 K/uL (152-406) 06/20/22 05:33 PT 11.6 SECONDS (9.5-12.5) 06/18/22 12:30 INR 1.05 06/18/22 12:30 Sodium 137 mmol/L (136-145) 06/20/22 05:33 Potassium 4.2 mmol/L (3.5-5.1) 06/20/22 05:33 BUN 11 mg/dL (7-18) 06/20/22 05:33 Creatinine 0.93 mg/dL (0.55-1.3) 06/20/22 05:33 Glucose 140 mg/dL (74-106) H 06/20/22 05:33 Phosphorus 3.3 mg/dL (2.5-4.9) 06/19/22 03:36 Magnesium 2.0 mg/dL (1.8-2.4) 06/19/22 03:36 Total Bilirubin 0.4 mg/dL (0.2-1.0) 06/20/22 05:33 AST 25 U/L (15-37) 06/20/22 05:33 ALT 36 U/L (12-78) 06/20/22 05:33 Alkaline Phosphatase 43 U/L (45-117) L 06/20/22 05:33 Lipase 102 U/L (73-393) 06/18/22 12:30 Home Medications: RX: Bupropion HCl [Wellbutrin Xl] 150 mg PO TID 06/12/22 RX: Dicyclomine [Bentyl*] 20 mg PO Q6HR PRN 06/12/22 RX: Memantine HCl 5 mg PO BEDTIME 06/12/22 RX: Ondansetron [Zofran (Odt)*] 4 mg PO Q6H PRN 06/12/22 RX: Ropinirole HCl 1 mg PO BEDTIME 06/12/22 RX: Sertraline [Zoloft*] 100 mg PO DAILY 06/12/22 RX: Trazodone [Desyrel*] 100 mg PO BEDTIME 06/12/22 Physician Discharge Instructions: 1. Please schedule a follow-up appointment with your PCP (Dr. Martinez) in 3-5 days 2. Please schedule a follow-up appointment with General Surgery (Dr. Avila) in 2 weeks (07/03/2022) Diet: Regular Activity: Ad brooke Followup: Stefan Avila MD [ACTIVE - CAN ADMIT] - (Call to schedule appointment. ) Miguel Martinez MD [Primary Care Provider] - (Call to schedule appointment) Time spent managing pt's care (in minutes): 20
[2022-06-20 08:36] VITALS: O2SAT 97
[2022-06-20 08:56] VITALS: BP 130/62; TEMP 98.3
[2022-06-20] MEDS ORDERED: BUPROPION HCL XL 150 MG TAB PO SCH (09:00)
[2022-06-20] MEDS ORDERED: SERTRALINE HCL 100 MG TAB PO SCH (09:00)
--- NOTE | 2022-06-20 14:01 | EKG ---
Test Date: 2022-06-18 Test Time: 13:19:35 Engineering Scientist: SADI MEASUREMENT RESULTS: Intervals: Rate: 73 ND: 148 QRSD: 78 QT: 400 QTc: 440 [place]: P: 56 ND: 148 QRS: 25 T: 29 INTERPRETIVE STATEMENTS: Normal sinus rhythm Normal ECG Compared to ECG 06/10/2022 20:03:07 No significant changes Electronically Signed On 06-20-22 14:00:14 CDT by Deondre Engel
[2022-06-20] MEDS ORDERED: TRAZODONE 50 MG TABLET PO SCH (21:00)
[2022-06-20] MEDS ORDERED: MEMANTINE HCL 10 MG TABLET PO SCH (21:00)
[2022-06-20] MEDS ORDERED: ROPINIROLE HCL 1 MG TAB PO SCH (21:00)
== END 2022-06-20 09:25 | disposition home or self-care (01) | DRG 418 ==
LOC: ER 12:11 → ERHOLD 14:56 → 4TH 20:15 → OBSVTOIN 06-19 20:53
PROVIDERS: ADMIT Internal Medicine; ATTEND Internal Medicine
PROC: 0DNW4ZZ Release Peritoneum, Percutaneous Endoscopic Approach (ICD-10-PCS; 2022-06-19)
PROC: BF50200 Other Imaging of Bile Ducts using Fluorescing Agent, Indocyanine Green Dye, Intraoperative (ICD-10-PCS; 2022-06-19)
PROC: 0FT44ZZ Resection of Gallbladder, Percutaneous Endoscopic Approach (ICD-10-PCS; principal; 2022-06-19 11:15)
DX: K80.00 Calculus of gallbladder with acute cholecystitis without obstruction (principal); K82.1 Hydrops of gallbladder; F43.10 Post-traumatic stress disorder, unspecified; F41.9 Anxiety disorder, unspecified; F32.A Depression, unspecified; K66.0 Peritoneal adhesions (postprocedural) (postinfection); Z20.822 Contact with and (suspected) exposure to COVID-19
CPT/HCPCS: 36415; 71045; 76705; 78226; 80048; 80053; 80076; 81001; 83690; 83735; 84100; 85025; 85610; 87040; 87811; 88304; 93005; 96365; 96375; 99285; A4216; A9537; G0378; J1100; J1170; J2001; J2250; J2405; J2543; J2704; J2710; J3010; J7120

== ENCOUNTER → 2023-10-26 | Emergency (ER) | payer OTHER, BC ==
[~2023-10-26] MED LIST: NA CHLORIDE 0.9% 1,000 ML ONE
[2023-10-26 10:18] LABS: Absolute Lymphocytes (CBC) 1.3 K/uL (0.7-4.9); Hematocrit 45.2 % (39.6-49.0); Lymphocytes % 10.7 % (15.3-44.8); MCV 87.9 fL (80-100); MPV 8.3 fL (7.6-11.3); Platelets 177 thou/uL (152-406); RBC Red Blood Cell Count 5.15 M/uL (4.33-5.43)
[2023-10-26 10:21] LABS: Protime INR 1.06
[2023-10-26 10:32] LABS: Albumin 3.6 g/dL (3.4-5.0); Bilirubin Total 0.8 mg/dL (0.2-1.0); Protein, Total 7.1 g/dL (6.4-8.2); Troponin High Sensitivity 13.2 pg/mL (<58.9)
[2023-10-26 10:34] LABS: Specific Gravity 1.022 (1.005-1.030); Urine Bacteria None Seen /HPF (<20); Urine Bilirubin NEGATIVE (Negative); Urine Blood Negative (Negative); Urine Clarity Clear (Clear); Urine Color Light-Yellow (Yellow); Urine Glucose NEGATIVE (Negative); Urine Mucus Slight /HPF (None Seen); Urine Protein NEGATIVE (Negative); Urine Urobilinogen Normal (Normal)
--- NOTE | 2023-10-26 10:57 | RAD REPORT ---
EXAM DESCRIPTION: RADChest Single View10/26/2023 10:50 am CLINICAL HISTORY: AMS COMPARISON: Chest Pa And Lat (2 Views) dated 11/18/2022; Chest Single View dated 06/18/2022; Chest Pa And Lat (2 Views) dated 06/12/2022; Chest Pa And Lat (2 Views) dated 05/15/2018 TECHNIQUE: Portable AP view of the chest. FINDINGS: The lungs are clear. No pneumothorax or effusion. The cardiomediastinal contours are unre markable. IMPRESSION: No acute cardiopulmonary process.
--- NOTE | 2023-10-26 11:15 | RAD REPORT ---
EXAM DESCRIPTION: CT - Head Brain Wo Cont - 10/26/2023 11:07 am CLINICAL HISTORY: AMS COMPARISON: Head angio dated 10/26/2023 TECHNIQUE: Noncontrast head CT images were obtained without IV contrast. Multiplanar reformats were generated and reviewed. All CT scans are performed using dose optimization technique as appropriate and may include automated exposure control or mA/KV adjustment according to patient size. FINDINGS: Predominantly hypodense left hemispheric subdural collection, measuring up to 2.1 cm in gr eatest thickness along the left frontal convexity. Isodense somewhat nodular membrane has formed with in the collection. No other hyperdense intra or extra-axial hemorrhage components. Rightward midline shift, measuring approximately 9 mm. Cavum septum pellucidum et vergae. Prominence of the right lateral ventricle, with near complete effacement of the third ventricle, findings which may suggest a degree of right lateral ventricle entrapment. No other acute intracranial hemorrhage, mass, or edema. Jung-white matter differentiation is preserved, without evidence of acute infarct. Mastoid air cells and visualized portions of the paranasal sinuses are clear. No acute bony findings. IMPRESSION: At least subacute left hemispheric subdural hemorrhage measuring up to 2.1 cm in greates t thickness with membrane formation within. Rightward 9 mm midline shift. Findings suggesting a degree of right lateral ventricular entrapment. The findings were communicated to Rad [facility] on 10/26/2023 at 11:08 hours.
--- NOTE | 2023-10-26 11:15 | ER ---
Nurse's Notes [facility] Name: Gerson Hackett Age: 73 yrs Sex: Male : 1950 Arrival Date: 10/26/2023 Time: 09:41 Bed 15 Private MD: Diagnosis: Nontraumatic acute subdural hemorrhage Presentation: 10/26 09:47 Chief complaint: Spouse and/or significant other states: Headache for 4-5 days, has ph been taking Excedrin and aspirin, difficulty walking, did not sleep last night, not moving R leg or arm, urinary incontinence in bed last night. Coronavirus screen: Vaccine status: Patient reports being unvaccinated. Ebola Screen: No symptoms or risks identified at this time. An acute neurological deficit is present. The patient has been moved to a treatment area. Pre-hospital glucose is not applicable to this patient. Initial Sepsis Screen: Does the patient meet any 2 criteria? No. Patient's initial sepsis screen is negative. Does the patient have a suspected source of infection? No. Patient's initial sepsis screen is negative. Risk Assessment: Do you want to hurt yourself or someone else? Patient reports no desire to harm self or others. Onset of symptoms was October 26, 2023. 09:47 Method Of Arrival: Wheelchair ph 09:47 Acuity: RUBIA 2 ph 09:51 Chief complaint: Family reports headache x 4 days, trouble ascending stairs last night hb at approx 1830, right leg weakness and confusion upon waking today. Coronavirus screen: At this time, the client does not indicate any symptoms associated with coronavirus-19. Ebola Screen: No symptoms or risks identified at this time. Initial Sepsis Screen: Does the patient meet any 2 criteria? No. Patient's initial sepsis screen is negative. Does the patient have a suspected source of infection? No. Patient's initial sepsis screen is negative. Risk Assessment: Do you want to hurt yourself or someone else? Patient reports no desire to harm self or others. Onset of symptoms was October 25, 2023. 09:51 Method Of Arrival: Wheelchair hb 09:51 Acuity: RUBIA 2 hb Stroke Activation: Symptom onset > 6 hours Physician: Stroke Attending; Name: ; Notified At: ; Arrived At: Physician: Chief Stroke Resident; Name: ; Notified At: ; Arrived At: Physician: Stroke Resident; Name: ; Notified At: ; Arrived At: Physician: ED Attending; Name: ; Notified At: ; Arrived At: Physician: ED Resident; Name: ; Notified At: ; Arrived At: Historical: - Allergies: 09:45 Lio; ph - Home Meds: 10:30 metoprolol tartrate 25 mg Oral tablet 0.5 tab 2 times per day [Active]; sertraline 100 ph mg oral tablet 2 tabs daily [Active]; trazodone 50 mg oral tablet 3 tabs every day at bedtime [Active]; memantine 5 mg oral tablet 1 tab 2 times per day [Active]; tadalafil 5 mg oral tablet 1 tab daily [Active]; - PMHx: 09:45 Anxiety; depressive disorder; PTSD; ph 10:30 TBI; ph - PSHx: 09:45 hernia; Right hip replacement; Right knee sx x2; ph - Immunization history:: Adult Immunizations unknown. - Social history:: Smoking status: unknown. Screenin:46 Abuse screen: Denies threats or abuse. Denies injuries from another. Nutritional ph screening: No deficits noted. Tuberculosis screening: No symptoms or risk factors identified. 09:46 [facility] ED Fall Risk Assessment (Adult) History of falling in the last 3 months, ph including since admission No falls in past 3 months (0 pts) Confusion or Disorientation Yes (5 pts) Intoxicated or Sedated No (0 pts) Impaired Gait Yes (1 pt) Mobility Assist Device Used Yes (1 pt) Altered Elimination No (0 pt) Score/Fall Risk Level 3 or more points = High Risk Oriented to surroundings, Maintained a safe environment, Provided non-skid footwear, Hourly rounding (assess needs \T\ fall precautionary measures) done. Assessment: 10:28 TNKase (Tenecteplase) Screening: Contraindications: Patient reports onset of signs and ph symptoms of stroke greater than 6 hours ago:. 11:19 Reassessment: Patient appears in no apparent distress at this time. Patient and/or ph family updated on plan of care and expected duration. Pain level reassessed. Vital Signs: 09:51 BP 129 / 71; Pulse 84; Resp 16; Temp 98.3(O); Pulse Ox 97% on R/A; Weight 86.18 kg; hb Height 5 ft. 10 in. ; Pain 0/10; 12:31 BP 115 / 57; Pulse 72; Resp 18; Temp 98; Pulse Ox 100% on R/A; hb 09:51 Body Mass Index 27.26 (86.18 kg, 177.8 cm) hb 09:51 Pain Scale: Non-Verbal hb NIH Stroke Scale Scores: 12:40 NIHSS Score: 12 ph ED Course: 09:43 Patient arrived in ED. im 09:44 Rad Taylor MD is Attending Physician. ec2 09:45 Lindsay Burroughs RN is Primary Nurse. ph 09:45 Arm band placed on Patient placed in an exam room, on a stretcher, on hall monitor, ph on pulse oximetry. 09:51 Triage completed. ph 10:05 Initial lab(s) drawn, by me, sent to lab. EKG done, by ED staff, reviewed by Rad Taylor MD. Inserted saline lock: 18 gauge in right antecubital area, using aseptic technique. Blood collected. 10:06 Patient has correct armband on for positive identification. Placed in gown. Bed in low ph position. Call light in reach. Side rails up X2. Client placed on continuous cardiac and pulse oximetry monitoring. NIBP monitoring applied. 10:29 Straight cath inserted, using sterile technique, 16 Fr. Specimen obtained. Returned ph clear yellow urine. Patient tolerated well. 10:52 XRAY Chest (1 view) In Process Unspecified. EDMS 11:08 Head Brain Wo Cont In Process Unspecified. EDMS 11:10 CT Head Angio In Process Unspecified. EDMS 11:10 CT Neck Angio In Process Unspecified. EDMS 11:10 initiated a transfer with Nya from the [facility] [place]. eb 11:29 connected neurosurgery refrigeration lead for [facility] with Dr. Taylor for patient transfer eb consultation. 11:45 administrative approval given by Nya Kern RN/ patient has been accepted to [place] [id number] bed 17/ Dr. Rui Cazares has accepted the patient in transfer/ report to be called to [phone]. Administered Medications: No medications were administered Medication: 10:06 VIS not applicable for this client. ph Outcome: 11:15 ER care complete, transfer ordered by . ec2 13:31 Patient left the ED. eb NIH Stroke Scale - NIH Stroke Score Date: 10/26/2023 Time: 12:40 Total Score = 12 10. Dysarthria (speech clarity - read or repeat words) - 1(Mild to Moderate) 11. Extinction and Inattention (visual/tactile/auditory/spatial/personal) - 0(No abnormality) 1a. Level of Consciousness (LOC) - 1(Not Alert) 1b. Level of Consciousness (LOC) (Month \T\ Age) - 1(One) 1c. LOC Commands (Open \T\ Closes Eyes/Traffic Routing Engineer) - 1(One) 2. Best Gaze (Lateral Gaze Paresis) - 0(Normal) 3. Visual Field Loss - 0(No visual loss) 4. Facial Palsy - 1(Minor Paralysis) 5a. Left Arm: Motor (10-second hold) - 0(No drift) 5b. Right Arm: Motor (10-second hold) - 1(Drift) 6a. Left Leg: Motor (5-second hold - always test supine) - 0(No drift) 6b. Right Leg: Motor (5-second hold - always test supine) - 2(Drift, some effort against gravity) 7. Limb Ataxia (finger/nose \T\ heel/hope - test with eyes open) - 2(Present in two limbs) 8. Sensory Loss (pinprick arms/legs/face) - 1(Mild to moderate loss) 9. Best Language: Aphasia (description/naming/reading) - 1(Mild to moderate aphasia) Initials: ph Signatures: Dispatcher [employer] Lindsay Alcala RN RN ph Baxter, Heather, RN RN hb Botello, Elizabeth eb Mendoza, Itzel im Corral, Edwin, MD MD ec2
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
--- NOTE | 2023-10-26 11:21 | RAD REPORT ---
EXAM DESCRIPTION: CT - Head angio - 10/26/2023 11:09 am CLINICAL HISTORY: AMS COMPARISON: Neck Angio dated 10/26/2023; Head Brain Wo Cont dated 10/26/2023 TECHNIQUE: Axial CT angiography images of the head was performed with multiplanar and maximum intens ity projection reconstructions. Images performed following intravenous administration of 100mL Isovue 300. All CT scans are performed using dose optimization technique as appropriate and may include automated exposure control or mA/KV adjustment according to patient size. FINDINGS: No evidence of large vessel occlusion. No evidence of aneurysm or dissection flap is detec sadiq. No flow-limiting stenosis or vascular malformation identified. Antegrade flow is seen in the vertebral arteries. The vertebral arteries are codominant. The visualized dural venous sinuses are grossly patent. Large left hemispheric subdural hemorrhage with resulting mass effect has better described on noncont rast head CT of the same day. IMPRESSION: No evidence of large vessel occlusion or flow-limiting stenosis.
--- NOTE | 2023-10-26 11:32 | RAD REPORT ---
EXAM DESCRIPTION: CT - Neck Angio - 10/26/2023 11:09 am CLINICAL HISTORY: AMS COMPARISON: No comparisons TECHNIQUE: Axial CT angiography images of the head was performed with multiplanar and maximum intens ity projection reconstructions. Images performed following intravenous administration of 100mL Isovue 300. All CT scans are performed using dose optimization technique as appropriate and may include automated exposure control or mA/KV adjustment according to patient size. Quantification of carotid stenosis, if any, is performed according to NASCET criteria. FINDINGS: A left aortic arch is identified with normal three vessel configuration of the great vesse ls. No significant flow abnormality is seen of the common carotid bilaterally. No significant stenosis is identified involving the cervical segments of both internal carotid arteri es. Normal flow is seen within both vertebral arteries. IMPRESSION: No significant flow abnormality of the neck vessels is identified. CAROTID STENOSIS REFERENCE USING NASCET CRITERIA: % ICA stenosis = (1 - narrowest ICA diameter/diameter of distal cervical ICA) x 100. Mild - <50% stenosis. Moderate - 50-69% stenosis. Severe - 70-94% stenosis. Near occlusion - 95-99% stenosis. Occluded - 100% stenosis.
[2023-10-26 14:05] VITALS: BP 115/57; TEMP 98; O2SAT 100
--- NOTE | 2023-10-27 12:23 | EKG ---
Test Date: 2023-10-26 Test Time: 10:03:01 Assistance Coordinator: SEBASTIAN MEASUREMENT RESULTS: Intervals: Rate: 82 LA: 144 QRSD: 84 QT: 374 QTc: 436 Sheldahl: P: 56 LA: 144 QRS: 53 T: 46 INTERPRETIVE STATEMENTS: Normal sinus rhythm Normal ECG Compared to ECG 06/18/2022 13:19:35 No significant changes Electronically Signed On 10-27-23 12:19:47 TICKET BROKER by Deondre Engel
== END ==
LOC: ER 09:41
DX: I62.01 Nontraumatic acute subdural hemorrhage (principal); R29.712 NIHSS score 12; Z87.820 Personal history of traumatic brain injury; Z91.018 Allergy to other foods
CPT/HCPCS: 93005; 85025; 81001; 36415; 85610; 84484; 80053; 83880; 70450; 70496; 70498; 71045; 51702; 99285; Q9967; J7030

== ENCOUNTER 2024-11-30 18:36 | Inpatient (IN) | payer OTHER, BC ==
--- NOTE | 2024-11-30 20:28 | RAD REPORT ---
EXAM: CT brain without contrast HISTORY: HEADACHE COMPARISON: 10/26/2023 TECHNIQUE: Multiple contiguous axial images were obtained and a CT of the brain without contrast. Sag ittal and coronal reformats were performed. FINDINGS: No evidence of hydrocephalus, intracranial hemorrhage, or extra-axial fluid collection. The brain is normal in morphology. The calvarium is intact. The visualized paranasal sinuses and mastoid air cells are essentially clear . IMPRESSION: No evidence of acute intracranial abnormality. EXAM: CT of the cervical spine without contrast HISTORY: HEADACHE COMPARISON: None TECHNIQUE: Multiple contiguous axial images were obtained in a CT of the cervical spine without contr ast. Sagittal and coronal reformats were performed. FINDINGS: The vertebral bodies demonstrate normal height and alignment. No evidence of acute fracture or subluxation.. Mild to moderate multilevel degenerative changes, with up to moderate right foraminal narrowing at C5-6. No prevertebral soft tissue swelling is seen. The posterior facets are well aligned. Normal alignment of the skull base with the cervical spine is seen. The lung apices are unremarkable. IMPRESSION: No evidence of acute osseous abnormality of the cervical spine.
[2024-11-30 20:29] LABS: Absolute Eosinophils 0.1 K/uL (0-0.5); Absolute Lymphocytes (CBC) 1.9 K/uL (0.7-4.9); Absolute Monocytes 0.8 K/uL (0.1-1.3); Basophils % 0.2 % (0-1.3); Eosinophils % 0.6 % (0-4.4); Hematocrit 42.6 % (39.6-49.0); Hemoglobin 14.2 g/dL (13.6-17.9); MCH 28.8 pg (27.0-35.0); MCHC 33.3 g/dL (32.0-36.0); MCV 86.4 fL (80-100); MPV 9.6 fL (7.6-11.3); Monocytes % 6.9 % (3.3-12.3); Neutrophils % 76.3 % (41.7-73.7); Platelets 173 thou/uL (152-406); RBC Red Blood Cell Count 4.92 M/uL (4.33-5.43); Red Cell Distribution Width 15.1 % (12.1-15.2)
[2024-11-30 20:42] LABS: PT Prothrombin Time 10.8 SECONDS (9.4-12.5); PTT, Activated Partial Thromb 29.5 SECONDS (24.3-36.9); Protime INR 1.03
[2024-11-30 20:51] LABS: ALT/SGPT 43 U/L (16-61); AST/SGOT 17 U/L (15-37); Albumin 3.2 g/dL (3.4-5.0); Albumin/Globulin Ratio 0.9 (1.1-1.8); Alkaline Phosphatase 54 U/L (45-117); Anion Gap 8.7 mEq/L (5.0-15.0); BUN Blood Urea Nitrogen 11 mg/dL (7-18); Bicarbonate 25 mEq/L (21-32); Bilirubin Total 0.3 mg/dL (0.2-1.0); Globulin 3.4 g/dL (2.3-3.5); Glomerular Filtration Rate 86 ml/min (=/>90); Glucose Level 79 mg/dL (74-106); Magnesium 2.4 mg/dL (1.6-2.4); Potassium 3.7 mEq/L (3.5-5.1); Protein, Total 6.6 g/dL (6.4-8.2); Sodium Level 142 mEq/L (136-145); Troponin High Sensitivity 7.6 pg/mL (<58.9)
[2024-11-30 20:52] LABS: Bilirubin Direct < 0.2 mg/dL (0-0.2); Bilirubin Indirect, Calculated 0.1 mg/dL (0.2-0.8)
[2024-11-30 21:18] LABS: Specific Gravity 1.024 (1.005-1.030); Sqamous Epithelial None Seen /HPF (None Seen); Urine Bacteria <20 /HPF (<20); Urine Bilirubin NEGATIVE (Negative); Urine Blood Negative (Negative); Urine Clarity Extremely Turbid (Clear); Urine Color Yellow (Yellow); Urine Crystals Unidentified Few /HPF (None Seen); Urine Culture Reflex Order NOT NEEDED; Urine Glucose NEGATIVE (Negative); Urine Ketones TRACE (Negative); Urine Microscopic Reflex YN ORDER UMIC; Urine Mucus 2+ /HPF (None Seen); Urine Nitrite NEGATIVE (Negative); Urine Protein NEGATIVE (Negative); Urine Urobilinogen Normal (Normal); Urine WBC Clump Occasional /HPF (None Seen); Urine Yeast (Budding) Many /HPF (None Seen); Urine pH 6.5 (5.0-7.0)
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
[2024-11-30] MEDS ORDERED: ACETAMINOPHEN 325 MG TABLET PO PRN (22:24)
[2024-11-30] MEDS ORDERED: ONDANSETRON 4 MG/2 ML VIAL IV PRN (22:24)
[2024-11-30] MEDS: NA CHLORIDE 0.9% 1,000 ML IV SCH (23:58)
[2024-12-01] MEDS: TRAZODONE 50 MG TABLET PO ONE (01:43)
[2024-12-01] MEDS: CODEINE 30MG/APAP 300MG TAB PO PRN (02:00)
[2024-12-01 06:18] LABS: Absolute Eosinophils 0.1 K/uL (0-0.5); Absolute Monocytes 0.5 K/uL (0.1-1.3); Absolute Neutrophil 8.1 K/uL (1.8-8.0); Basophils % 0.2 % (0-1.3); Eosinophils % 1.2 % (0-4.4); Hematocrit 41.8 % (39.6-49.0); Hemoglobin 13.9 g/dL (13.6-17.9); Lymphocytes % 18.6 % (15.3-44.8); MCH 28.8 pg (27.0-35.0); MCHC 33.2 g/dL (32.0-36.0); MCV 86.8 fL (80-100); MPV 9.4 fL (7.6-11.3); Monocytes % 4.9 % (3.3-12.3); Neutrophils % 75.1 % (41.7-73.7); Nucleated Red Blood Cells % 0.1 % (0-0); Platelets 149 thou/uL (152-406); RBC Red Blood Cell Count 4.82 M/uL (4.33-5.43); Red Cell Distribution Width 15.4 % (12.1-15.2)
[2024-12-01 06:35] LABS: Albumin 2.8 g/dL (3.4-5.0); Albumin/Globulin Ratio 0.9 (1.1-1.8); Bilirubin Total 0.3 mg/dL (0.2-1.0); Protein, Total 5.8 g/dL (6.4-8.2)
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
[2024-12-01] MEDS: CEFTRIAXONE 1,000 MG in NA CHLORIDE 0.9% 50 ML IVPB SCH (08:50)
[2024-12-01] MEDS: ENOXAPARIN 40 MG/0.4 ML SQ SCH (08:50)
--- NOTE | 2024-12-01 11:44 | EKG ---
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
[2024-12-01 14:38] LABS: Thyroid Stimulating Hormone 1.83 uIU/mL (0.358-3.740)
--- NOTE | 2024-12-01 16:06 | RAD REPORT ---
EXAMINATION: MRI BRAIN WITHOUT CONTRAST CLINICAL INDICATION: r/o cva; vertigo, falls, balance TECHNIQUE: Multiplanar multisequence MR images of the brain were obtained without intravenous contras t. Unless otherwise specified, incidental findings do not require dedicated imaging follow-up. COMPARISON: 11/30/2024, 08/11/2024 FINDINGS: INTRACRANIAL: Diffusion-weighted images show no acute or early subacute infarction. There is mild bra in atrophy with mildT2/FLAIR hyperintensities in the periventricular and deep white matter regions, likely representing chronic microvascular ischemic changes. There is no mass effect or midline shift. No abnormal extraaxial fluid collection. VASCULATURE: Normal signal voids in the larger intracranial arteries and dural venous sinuses. SINUSES: The paranasal sinuses and mastoid air cells are predominantly clear. BONE: The marrow signal pattern is within normal limits. IMPRESSION: Negative for acutre CVA or other acute intracranial finding.
[2024-12-01] MEDS ORDERED: CODEINE 30MG/APAP 300MG TAB PO PRN (18:19)
[2024-12-01] MEDS: TRAZODONE 150 MG TAB PO SCH (20:54)
[2024-12-01] MEDS: MEMANTINE HCL 10 MG TABLET PO SCH (20:55)
[2024-12-01] MEDS ORDERED: TRAZODONE 50 MG TABLET PO SCH (21:00)
[2024-12-01] MEDS ORDERED: HOME MED 1 EA UNK (Memantine Hcl [Memantine Hcl] 5 MG Tablet) PO SCH (21:00)
[2024-12-02 04:00] VITALS: BMI 26.8
[2024-12-02 07:59] LABS: Absolute Eosinophils 0.2 K/uL (0-0.5); Absolute Lymphocytes (CBC) 1.9 K/uL (0.7-4.9); Absolute Monocytes 0.6 K/uL (0.1-1.3); Absolute Neutrophil 7.8 K/uL (1.8-8.0); Basophils % 0.1 % (0-1.3); Eosinophils % 1.6 % (0-4.4); Hematocrit 43.1 % (39.6-49.0); Hemoglobin 14.1 g/dL (13.6-17.9); Lymphocytes % 18.4 % (15.3-44.8); MCH 28.8 pg (27.0-35.0); MCHC 32.7 g/dL (32.0-36.0); MCV 87.9 fL (80-100); MPV 8.9 fL (7.6-11.3); Monocytes % 5.6 % (3.3-12.3); Neutrophils % 74.3 % (41.7-73.7); Nucleated Red Blood Cells % 0.2 % (0-0); Platelets 159 thou/uL (152-406); Red Cell Distribution Width 15.5 % (12.1-15.2)
[2024-12-02 08:06] LABS: Albumin 2.7 g/dL (3.4-5.0); Albumin/Globulin Ratio 0.8 (1.1-1.8); Bilirubin Total 0.4 mg/dL (0.2-1.0); Globulin 3.2 g/dL (2.3-3.5); Magnesium 2.3 mg/dL (1.6-2.4); Protein, Total 5.9 g/dL (6.4-8.2)
[2024-12-02] MEDS: BUPROPION HCL XL 150 MG TAB PO SCH (08:16)
[2024-12-02] MEDS ORDERED: BUPROPION HCL XL 150 MG TAB PO SCH (09:00)
--- NOTE | 2024-12-02 09:06 | EEG ---
CHART: [id number] TEST ID#: [id number] DATE OF STUDY: 12-01-2024 THE EEG WAS RECORDED PORTABLE IN THE PATIENT'S ROOM ON A 17 CHANNEL MACHINE. ELECTRODES WERE APPLIED IN THE USUAL MANNER USING THE INTERNATIONAL 10-20 SYSTEM. THE WAKING BACKGROUND RHYTHM IN THIS RECORD CONSISTS OF VERY WELL DEVELOPED AND WELL ORGANIZED WAVES OF 8.5 HZ., MAXIMAL IN THE POSTERIOR HEAD REGIONS WHICH ATTENUATE NORMALLY WITH EYE OPENING. LOW-VOLTAGE 18-22 HZ ACTIVITY IS EXPRESSED IN THE FRONTAL REGIONS. THERE ARE NO FOCAL OR LATERALIZING FEATURES. NO EPILEPTIFORM ACTIVITY APPEARS. SLEEP OCCURRED NATURALLY. IN ADDITION TO NORMAL SLEEP PATTERNS ARE PRESENT. HYPERVENTILATION WAS NOT PERFORMED. PHOTIC STIMULATION PRODUCED NOT PERFORMED. IMPRESSION: NORMAL EEG FOR THE AGE OF THE PATIENT IN [place], DROWSINESS AND SLEEP.
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
[2024-12-02 09:10] VITALS: BP 143/72; TEMP 97.6
[2024-12-02 10:32] VITALS: O2SAT 97
== END 2024-12-02 10:33 | disposition home or self-care (01) | DRG 71 ==
LOC: ER 18:36 → ERHOLD 22:24 → 4TH 23:33
PROVIDERS: ADMIT Family Medicine; ATTEND Hospitalist
DX: G93.40 Encephalopathy, unspecified (principal); F03.93 Unspecified dementia, unspecified severity, with mood disturbance; F03.94 Unspecified dementia, unspecified severity, with anxiety; F43.10 Post-traumatic stress disorder, unspecified; I10 Essential (primary) hypertension; G25.81 Restless legs syndrome; G89.4 Chronic pain syndrome; G40.909 Epilepsy, unspecified, not intractable, without status epilepticus; R29.6 Repeated falls; Z91.81 History of falling; Z79.02 Long term (current) use of antithrombotics/antiplatelets; Z91.018 Allergy to other foods; Z96.641 Presence of right artificial hip joint; Z79.899 Other long term (current) drug therapy; Z87.820 Personal history of traumatic brain injury
CPT/HCPCS: 36415; 70450; 70551; 72125; 80048; 80053; 80076; 81001; 82306; 82607; 83735; 84439; 84443; 84484; 85025; 85610; 85730; 93005; 95816; 97161; 97165; 97535; 99285; J0696; J1650; J7030